=== PATIENT | male | born 1935 | race Caucasian/White ===

== ENCOUNTER 2016-12-12 10:32 | Emergency (ER) | payer MEDICARE ==
[~2016-12-12] VITALS: Ht 190.5 cm; Wt 95.5 kg
[~2016-12-12 10:32] MED LIST: CENTCHW3 PO; DULO30 PO; DUONI NEB; GABA300C3 PO; LISI-360 PO; LISI10 PO; PANT40IN3 PO; PRAV80 PO; SYNT88TA PO; TEMA15 PO; TRAV0.00 RIGHT EYE; Z.0.OXYGENDME NC
[2016-12-12 10:41] VITALS: BP 176/82; PULSE 56; RESP 18; TEMP 98.1; O2SAT 96
[2016-12-12] MEDS ORDERED: SODIUM CHLORID 0.9% 500 ML INJ 500 ML IV ONE (11:00)
[2016-12-12] MEDS ORDERED: SODIUM CHLORIDE 0.9% FLUSH 10 ML FLUSH IV FLUSH PRN (11:00)
[2016-12-12 11:08] VITALS: O2SAT 97
[2016-12-12] MEDS ORDERED: GABA300C5 PO (11:08)
[2016-12-12] MEDS ORDERED: PRAV80TA2 PO (11:08)
[2016-12-12] MEDS ORDERED: TRAV0.00 RIGHT EYE (11:08)
[2016-12-12] MEDS ORDERED: VENTAER INH (11:08)
[2016-12-12] MEDS ORDERED: THERM PO (11:08)
[2016-12-12] MEDS ORDERED: LISI10TA3 PO (11:08)
[2016-12-12] MEDS ORDERED: LEVO88TA2 PO (11:08)
[2016-12-12] MEDS ORDERED: DULO1CAP2 PO (11:08)
[2016-12-12 11:21] LABS: AUTOMATED NEUTROPHIL # 4.3 TH/MM3 (1.8-7.7); BASOPHIL % 0.6 % (0.0-2.0); EOSINOPHIL # 0.1 TH/MM3 (0-0.4); EOSINOPHIL % 1.3 % (0.0-4.0); HEMATOCRIT 37.1 % (39.0-51.0); HEMO FLAGS DIFF FINAL; LYMPH % 17.5 % (9.0-44.0); MEAN CELL VOLUME 95.9 FL (80.0-100.0); MEAN CORPUSCULAR HEMOGLOBIN 32.9 PG (27.0-34.0); MEAN CORPUSCULAR HGB CONC 34.3 % (32.0-36.0); MONO % 6.9 % (0.0-8.0); NEUT % 73.7 % (16.0-70.0); PLATELET COUNT 208 TH/MM3 (150-450); RED BLOOD COUNT 3.87 MIL/MM3 (4.50-5.90); RED CELL DISTRIBUTION WIDTH 13.5 % (11.6-17.2); WHITE BLOOD COUNT 5.9 TH/MM3 (4.0-11.0)
[2016-12-12 11:44] LABS: ANION GAP 10 MEQ/L (5-15); AST (GOT) 22 U/L (15-37); BLOOD UREA NITROGEN 17 MG/DL (7-18); CHLORIDE 106 MEQ/L (98-107); GLOMERULAR FILTRATION RATE 72 ML/MIN (>89); POTASSIUM 3.8 MEQ/L (3.5-5.1); SODIUM (NA) 142 MEQ/L (136-145)
[2016-12-12 11:48] LABS: ALKALINE PHOSPHATASE 70 U/L (45-117); ALT (GPT) 22 U/L (12-78); TOTAL BILIRUBIN ADULT 0.4 MG/DL (0.2-1.0)
--- NOTE | 2016-12-12 12:02 | RADRPT ---
EXAM DATE/TIME: 12/12/2016 11:41 [facility] COMPARISON: CHEST PA & LAT, January 28, 2016, 9:28. INDICATIONS : Vomiting. MEDICAL HISTORY : Hypertension. SURGICAL HISTORY : None. ENCOUNTER: Initial ACUITY: 2 days PAIN SCORE: 0/10 LOCATION: Bilateral abdomen FINDINGS: The bowel gas pattern is within normal limits. No free air is identified. No findings to indicate bow el obstruction are present. No abnormal calcifications are seen. No organomegaly is identified. 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 CONCLUSION: 1. Benign-appearing bowel gas pattern. Yasmani Willams MD on December 12, 2016 at 12:00 Board Certified Radiologist. This report was verified electronically.
--- NOTE | 2016-12-12 12:45 | PD ---
HPI Chief Complaint: GI Complaint Time Seen by Provider: 10:59 Travel History International Travel<30 days: No Contact w/Intl Traveler<30days: No Traveled to known affect area: No History of Present Illness HPI 81-year-old male from home with history of multiple medical issues, presents to the ER today for episodes of vomiting after getting up this morning. He reports that he felt dizzy. He states that he is not significantly nauseous, is not having abdominal pain, diarrhea, fevers, or any other symptoms. He states he is just vomiting. His symptoms have subsided after Zofran was given by EMS. On further questioning with , she states that she has been evaluated by neurology recently for dizziness and they had wanted to do a CT of the brain for the patient. Modifying Factors: None Associated Signs & Symptoms: Nausea and vomiting, dizziness Risk Factors: Elderly, dizziness recently PFSH Past Medical History Arthritis: Yes Autoimmune Disease: No Heart Rhythm Problems: Yes Cancer: No Cardiovascular Problems: Yes High Cholesterol: Yes Chest Pain: No Congestive Heart Failure: No Cerebrovascular Accident: No Diminished Hearing: No Endocrine: Yes Hypertension: Yes Immune Disorder: No Inguinal Hernia: Yes (BILAT REPAIRED) Implanted Vascular Access Dvce: Yes Kidney Stones: No Musculoskeletal: Yes Neurologic: Yes (PERIPHERAL NEUROPATHY) Psychiatric: No Reproductive: No Respiratory: No Migraines: No Renal Failure: No Seizures: No Thyroid Disease: Yes (HYPO) Past Surgical History Abdominal Surgery: Yes ( BILAT INGUINAL HERNIA REPAIR, APPY) AICD: No Appendectomy: Yes Arteriovenous Shunt: No Body Medical Devices: 4 RODS IN RIGHT ARM Cardiac Surgery: No Ear Surgery: No Endocrine Surgery: No Eye Surgery: Yes Genitourinary Surgery: No Insulin Pump: No Joint Replacement: Yes (BILAT KNEE) Oral Surgery: No Pacemaker: No Thoracic Surgery: No Other Surgery: Yes (LEFT SHOULDER, ELBOW) Social History Alcohol Use: No Tobacco Use: No Substance Use: No Allergies-Medications (Allergen,Severity, Reaction): Coded Allergies: *MDRO Multi-Drug Resistant Organism (Verified Allergy, Unknown, 12/12/16) C.diff 11/2013 Reported Meds & Prescriptions Reported Meds & Active Scripts Active Resp: Albuterol/Ipratropium 2.5 Mg/0.5 Mg (Albuterol/Ipratropium) 1 Amp Nebu 1 Ampule NEB Q4HR NEB PRN 14 Days Prinivil 10 mg (Lisinopril) 10 Mg Tab 10 Mg PO DAILY Lisinopril 10 mg (Lisinopril) 10 Mg Tab 10 Mg PO DAILY Reported Pravastatin 80 Mg Tab 80 Mg PO DAILY Thera M Plus (Multivitamins/Minerals Therapeutic) 1 Tab 1 Tab PO DAILY Lisinopril 10 Mg Tab 10 Mg PO DAILY Levothyroxine (Levothyroxine Sodium) 88 Mcg Tab 88 Mcg PO DAILY Gabapentin 300 Mg Cap 900 Mg PO HS Duloxetine DR (Duloxetine HCl) 30 Mg Capdr 30 Mg PO DAILY Ventolin Hfa 18 GM Inh (Albuterol Sulfate) 90 Mcg/Act Aer 2 Puff INH Q4-6H PRN Travatan Z (Travoprost) 0.004 % Donte 1 Drop RIGHT EYE HS Gabapentin 300 Mg Cap 900 Mg PO HS Pravastatin Sodium (Pravastatin Sod) 80 Mg Tab 80 Mg PO DAILY Synthroid (Levothyroxine Sodium) 88 Mcg Tab 88 Mcg PO DAILY Duloxetine HCl 30 Mg Cap 1 Tab PO DAILY Centrum Silver (Multiple Vitamins W/ Minerals) Silver Chw 1 Tab PO DAILY Travatan Z Opth Drops (Travoprost) 0.004 % Soln 1 Drop RIGHT EYE HS Review of Systems Except as stated in HPI: all other systems reviewed are Neg Physical Exam Narrative GENERAL: Well-developed pleasant elderly white male patient currently in mild distress. Awake and oriented 3. SKIN: Focused skin assessment warm/dry. HEAD: Atraumatic. Normocephalic. EYES: Pupils equal and round. No scleral icterus. No injection or drainage. ENT: No nasal bleeding or discharge. Mucous membranes pink and moist. NECK: Trachea midline. No JVD. CARDIOVASCULAR: Regular rate and rhythm. No murmur appreciated. RESPIRATORY: No accessory muscle use. Clear to auscultation. Breath sounds equal bilaterally. GASTROINTESTINAL: Abdomen soft, non-tender, nondistended. Hepatic and splenic margins not palpable. Benign. MUSCULOSKELETAL: No obvious deformities. No clubbing. No cyanosis. No edema. NEUROLOGICAL: Awake and alert. No obvious cranial nerve deficits. Motor grossly within normal limits. Normal speech. PSYCHIATRIC: Appropriate mood and affect; insight and judgment normal. Data Data Last Documented VS Vital Signs Date Time Temp Pulse Resp B/P Pulse Ox O2 Delivery O2 Flow Rate FiO2 12/12/16 13:16 58 18 150/68 97 Room Air 12/12/16 10:41 98.1 Orders Complete Blood Count With Diff (12/12/16 10:59) Comprehensive Metabolic Panel (12/12/16 10:59) Lipase (12/12/16 10:59) Urinalysis - C+S If Indicated (12/12/16 10:59) Abdomen, Flat & Upright (12/12/16 ) Iv Access Insert/Monitor (12/12/16 10:59) Ecg Monitoring (12/12/16 10:59) Oximetry (12/12/16 10:59) Sodium Chloride 0.9% Flush (Ns Flush) (12/12/16 11:00) Electrocardiogram (12/12/16 10:59) Sodium Chlorid 0.9% 500 Ml Inj (Ns 500 M (12/12/16 11:00) Ct Brain W/O Iv Contrast(Rout) (12/12/16 12:56) Labs Laboratory Tests Test 12/12/16 12/12/16 11:03 12:30 White Blood Count 5.9 TH/MM3 Red Blood Count 3.87 MIL/MM3 Hemoglobin 12.7 GM/DL Hematocrit 37.1 % Mean Corpuscular Volume 95.9 FL Mean Corpuscular Hemoglobin 32.9 PG Mean Corpuscular Hemoglobin 34.3 % Concent Red Cell Distribution Width 13.5 % Platelet Count 208 TH/MM3 Mean Platelet Volume 8.4 FL Neutrophils (%) (Auto) 73.7 % Lymphocytes (%) (Auto) 17.5 % Monocytes (%) (Auto) 6.9 % Eosinophils (%) (Auto) 1.3 % Basophils (%) (Auto) 0.6 % Neutrophils # (Auto) 4.3 TH/MM3 Lymphocytes # (Auto) 1.0 TH/MM3 Monocytes # (Auto) 0.4 TH/MM3 Eosinophils # (Auto) 0.1 TH/MM3 Basophils # (Auto) 0.0 TH/MM3 CBC Comment DIFF FINAL Differential Comment Sodium Level 142 MEQ/L Potassium Level 3.8 MEQ/L Chloride Level 106 MEQ/L Carbon Dioxide Level 26.0 MEQ/L Anion Gap 10 MEQ/L Blood Urea Nitrogen 17 MG/DL Creatinine 0.99 MG/DL Estimat Glomerular Filtration 72 ML/MIN Rate Random Glucose 107 MG/DL Calcium Level 8.7 MG/DL Total Bilirubin 0.4 MG/DL Aspartate Amino Transf 22 U/L (AST/SGOT) Alanine Aminotransferase 22 U/L (ALT/SGPT) Alkaline Phosphatase 70 U/L Total Protein 7.9 GM/DL Albumin 3.2 GM/DL Lipase 98 U/L Urine Color YELLOW Urine Turbidity CLEAR Urine pH 7.0 Urine Specific [place] 1.016 Urine Protein NEG mg/dL Urine Glucose (UA) NEG mg/dL Urine Ketones TRACE mg/dL Urine Occult Blood NEG Urine Nitrite NEG Urine Bilirubin NEG Urine Urobilinogen LESS THAN 2.0 MG/DL Urine Leukocyte Esterase NEG Urine RBC 1 /hpf Urine WBC 1 /hpf Microscopic Urinalysis Comment CULT NOT INDICATED MDM Medical Decision Making Medical Screen Exam Complete: Yes Emergency Medical Condition: Yes Medical Record Reviewed: Yes Interpretation(s) EKG shows sinus bradycardia rate of 54 bpm with no signs of acute ST-T changes. Laboratory Tests Test 12/12/16 12/12/16 11:03 12:30 Red Blood Count 3.87 MIL/MM3 (4.50-5.90) Hemoglobin 12.7 GM/DL (13.0-17.0) Hematocrit 37.1 % (39.0-51.0) Neutrophils (%) (Auto) 73.7 % (16.0-70.0) Estimat Glomerular Filtration 72 ML/MIN (>89) Rate Random Glucose 107 MG/DL (74-106) Albumin 3.2 GM/DL (3.4-5.0) Urine Ketones TRACE mg/dL (NEG) Last 24 hours Impressions Abdomen X-Ray 12/12/16 0000 Signed Impressions: Service Date/Time: Monday, December 12, 2016 11:41 - CONCLUSION: 1. Benign-appearing bowel gas pattern. Yasmani Willams MD Differential Diagnosis Nausea and vomitinggastroenteritis versus obstruction versus pneumonia versus other acute intra-abdominal processes Narrative Course Patient did not have any further episodes of vomiting in the ER after given Zofran by EMS. Abdomen is benign. X-ray did not show any signs of acute obstruction. Lab work did not show significant dehydration or leukocytosis. CT brain was done because patient's neurologist has been evaluating patient for headaches and dizziness. It did not show any signs of acute intercranial processes. At this point, patient appears to be doing well in the ER with no further episodes or symptoms. Vital signs are stable. My plan would be to release him with follow-up to primary care physician and neurology. Return for any worsening in symptoms as needed. The plan has been discussed with him and he states understanding. Diagnosis Primary Impression: Dizziness Additional Impression: Vomiting Med/Other Pt SpecificInfo: Prescription(s) given Scripts Ondansetron Odt (Zofran Odt)4 Mg Tab4 Mg SL Q6HR PRN (Nausea/Vomiting) #7 TAB Ref 0 Prov:Kris Mcintosh MD 12/12/16 Disposition: 01 DISCHARGE HOME Condition: Stable Kris Mcintosh MD Dec 12, 2016 12:45
[2016-12-12 12:47] LABS: BLOOD, URINE NEG (NEG); GLUCOSE,URINE NEG (NEG); KETONE, URINE TRACE mg/dL (NEG); NITRITE,URINE NEG (NEG); URINE COLOR YELLOW (YELLW/STRAW)
[2016-12-12 12:48] LABS: COMMENT (UR) CULT NOT INDICATED; CULTURE IF INDICATED CULT NOT INDICATED
[2016-12-12 13:16] VITALS: BP 150/68; PULSE 58; RESP 18; O2SAT 97
--- NOTE | 2016-12-12 14:51 | RADRPT ---
EXAM DATE/TIME: 12/12/2016 14:01 [facility] COMPARISON: CT BRAIN W/O CONTRAST, November 15, 2013, 16:21. INDICATIONS : Dizziness,nuasea,vomiting today RADIATION DOSE: 56.36 CTDIvol (mGy) MEDICAL HISTORY : Cardiovascular disease. Hypertension. Diabetes SURGICAL HISTORY : Appendectomy. ENCOUNTER: Initial ACUITY: 1 day PAIN SCALE: 0/10 LOCATION: cranial TECHNIQUE: Multiple contiguous axial images were obtained of the head. Using automated exposure control and adj ustment of the mA and/or kV according to patient size, radiation dose was kept as low as reasonably a chievable to obtain optimal diagnostic quality images. FINDINGS: CEREBRUM: Redemonstration of bilateral subinsular and right periventricular hypodensities which likely reflect lacunar infarcts. The ventricles are normal for degree of atrophy. No evidence of midline shift, mas s lesion, hemorrhage or acute infarction. No extra-axial fluid collections are seen. POSTERIOR FOSSA: The cerebellum and brainstem are intact. The 4th ventricle is midline. The cerebellopontine angle i s unremarkable. EXTRACRANIAL: The visualized portion of the orbits is intact. SKULL: Redemonstration of dense right globe. The calvaria is intact. No evidence of skull fracture. CONCLUSION: 1. No acute intracranial abnormality. Rigoberto Caruso MD on December 12, 2016 at 14:45 Board Certified Radiologist. This report was verified electronically.
[2016-12-12] MEDS ORDERED: ZOFR4TAB3 SL (15:19)
--- NOTE | 2016-12-13 14:09 | EKG ---
Date Performed: 12/12/2016 Time Performed: 11:58:43 PTAGE: 81 years EKG: SINUS BRADYCARDIA WITH FIRST DEGREE AV BLOCK MODERATE INTRAVENTRICULAR CONDUCTION DELAY ABN ORMAL ECG PREVIOUS TRACING : 01/20/2016 16.42 Since previous tracing, no significant change noted DOCTOR: Kirk May Interpretating Date/Time 12/13/2016 14:04:59
== END 2016-12-12 15:32 | disposition home or self-care (01) ==
LOC: NEPE 10:32
DX: R42 Dizziness and giddiness (principal); R11.10 Vomiting, unspecified; R94.31 Abnormal electrocardiogram [ECG] [EKG]; I10 Essential (primary) hypertension
CPT/HCPCS: 70450; 74020; 80053; 81001; 83690; 85025; 93005; 96360; 96361; 99285; J7040

== ENCOUNTER 2017-05-28 13:38 | Emergency (ER) | payer MEDICARE ==
[~2017-05-28] VITALS: Ht 190.5 cm; Wt 98.0 kg
[~2017-05-28 13:38] MED LIST changes: +DULO1CAP2 PO; +GABA300C5 PO; +LEVO88TA2 PO; +LISI10TA3 PO; -PANT40IN3 PO; +PRAV80TA2 PO; -TEMA15 PO; +THERM PO; +VENTAER INH; -Z.0.OXYGENDME NC; +ZOFR4TAB3 SL
[2017-05-28 13:47] VITALS: BP 168/83; PULSE 73; RESP 20; TEMP 97.4; O2SAT 94
--- NOTE | 2017-05-28 14:12 | PD ---
HPI Chief Complaint: Fall Time Seen by Provider: 14:00 Travel History International Travel<30 days: No Contact w/Intl Traveler<30days: No Traveled to known affect area: No History of Present Illness HPI 81-year-old male came to the emergency room after falling since his legs gave way. Patient remembers the fall. His was there but her back was turned to him for a second when the fall happened. The patient fell on the floor she turned around and saw him and he was still awake. He had an open wound on his scalp and his right hand. She called EMS and patient was brought in by ambulance. Patient is awake and answering questions appropriately. He denies of any pain. Vital signs are stable. Patient is on aspirin only as a blood thinner. PFSH Past Medical History Narrative Medical List of his past medical, surgical, social and family history is reviewed from the nursing note. Arthritis: Yes Autoimmune Disease: No Heart Rhythm Problems: Yes Cancer: No Cardiovascular Problems: Yes High Cholesterol: Yes Chest Pain: No Congestive Heart Failure: No Cerebrovascular Accident: No Diminished Hearing: No Endocrine: Yes Hypertension: Yes Immune Disorder: No Inguinal Hernia: Yes (BILAT REPAIRED) Implanted Vascular Access Dvce: Yes Kidney Stones: No Musculoskeletal: Yes Neurologic: Yes (PERIPHERAL NEUROPATHY) Psychiatric: No Reproductive: No Respiratory: No Migraines: No Renal Failure: No Seizures: No Thyroid Disease: Yes (HYPO) Past Surgical History Abdominal Surgery: Yes ( BILAT INGUINAL HERNIA REPAIR, APPY) AICD: No Appendectomy: Yes Arteriovenous Shunt: No Body Medical Devices: 4 RODS IN RIGHT ARM Cardiac Surgery: No Ear Surgery: No Endocrine Surgery: No Eye Surgery: Yes Genitourinary Surgery: No Insulin Pump: No Joint Replacement: Yes (BILAT KNEE) Oral Surgery: No Pacemaker: No Thoracic Surgery: No Other Surgery: Yes (LEFT SHOULDER, ELBOW) Social History Alcohol Use: No Tobacco Use: No Substance Use: No Allergies-Medications (Allergen,Severity, Reaction): Coded Allergies: *MDRO Multi-Drug Resistant Organism (Verified Allergy, Unknown, 12/12/16) C.diff 11/2013 Comments List of his allergies reviewed from the nursing note. Reported Meds & Prescriptions Reported Meds & Active Scripts Active Bacitracin Topical 500 Unit/Gm Oint 1 Applic TOPICAL BID 7 Days Keflex (Cephalexin) 500 Mg Cap 500 Mg PO Q12H 7 Days Zofran Odt (Ondansetron Odt) 4 Mg Tab 4 Mg SL Q6HR PRN Resp: Albuterol/Ipratropium 2.5 Mg/0.5 Mg (Albuterol/Ipratropium) 1 Amp Nebu 1 Ampule NEB Q4HR NEB PRN 14 Days Prinivil 10 mg (Lisinopril) 10 Mg Tab 10 Mg PO DAILY Lisinopril 10 mg (Lisinopril) 10 Mg Tab 10 Mg PO DAILY Reported Travatan Z Opth Drops (Travoprost) 0.004 % Soln 1 Drop RIGHT EYE HS Pravastatin 80 Mg Tab 80 Mg PO DAILY Thera M Plus (Multivitamins/Minerals Therapeutic) 1 Tab 1 Tab PO DAILY Lisinopril 10 Mg Tab 10 Mg PO DAILY Levothyroxine (Levothyroxine Sodium) 88 Mcg Tab 88 Mcg PO DAILY Gabapentin 300 Mg Cap 900 Mg PO HS Duloxetine DR (Duloxetine HCl) 30 Mg Capdr 30 Mg PO DAILY Ventolin Hfa 18 GM Inh (Albuterol Sulfate) 90 Mcg/Act Aer 2 Puff INH Q4-6H PRN Travatan Z (Travoprost) 0.004 % Donte 1 Drop RIGHT EYE HS Gabapentin 300 Mg Cap 900 Mg PO HS Pravastatin Sodium (Pravastatin Sod) 80 Mg Tab 80 Mg PO DAILY Synthroid (Levothyroxine Sodium) 88 Mcg Tab 88 Mcg PO DAILY Duloxetine HCl 30 Mg Cap 1 Tab PO DAILY Centrum Silver (Multiple Vitamins W/ Minerals) Silver Chw 1 Tab PO DAILY Narrative Medication List of his home medications reviewed from the nursing note. Review of Systems Except as stated in HPI: all other systems reviewed are Neg Physical Exam Narrative GENERAL: Awake, alert, elderly, no obvious distress SKIN: Focused skin assessment warm/dry. 6 cm deep laceration on the dorsum of the right hand with bleeding controlled. HEAD: 5 cm laceration on the right parietal scalp area with underlying hematoma. Bleeding is controlled EYES: Pupils equal and round. No scleral icterus. No injection or drainage. ENT: No nasal bleeding or discharge. Mucous membranes pink and moist. NECK: Trachea midline. No JVD. CARDIOVASCULAR: Regular rate and rhythm. No murmur appreciated. RESPIRATORY: No accessory muscle use. Clear to auscultation. Breath sounds equal bilaterally. GASTROINTESTINAL: Abdomen soft, non-tender, nondistended. Hepatic and splenic margins not palpable. MUSCULOSKELETAL: No obvious deformities. No clubbing. No cyanosis. No edema. NEUROLOGICAL: Awake and alert. No obvious cranial nerve deficits. Motor grossly within normal limits. Normal speech. PSYCHIATRIC: Appropriate mood and affect; insight and judgment normal. Data Data Last Documented VS Orders Orders Ct Brain W/O Iv Contrast(Rout) (05/28/17 ) Lidocaine 1% Inj (50 Ml) (Xylocaine 1% I (05/28/17 14:15) Ed Discharge Order (05/28/17 16:07) [facility] Medical Decision Making Medical Screen Exam Complete: Yes Emergency Medical Condition: Yes Medical Record Reviewed: Yes Differential Diagnosis Intracranial bleed, skull fracture, laceration Narrative Course 4:05 PM CAT scan of the head was ordered which is negative for any intracranial bleed. The laceration of the scalp and the dorsum of the hand was repaired by my PA. Please refer to her procedure note. I will discharge the patient home. Procedures EKG Prior to Arrival: No Diagnosis Primary Impression: Scalp laceration Qualified Codes: S01.01XA - Laceration without foreign body of scalp, initial encounter Additional Impressions: Hand laceration Qualified Codes: S61.421A - Laceration with foreign body of right hand, initial encounter Fall Qualified Codes: W19.XXXA - Unspecified fall, initial encounter Referrals: Primary Care Physician Additional Instructions: Please return to the ER to get the joleen and the stitches taken out in 7-10 days. The wound clean and dry. Take the antibiotic as per the prescription direction. Apply the ointment twice a day on the wound until the stitches are out. Med/Other Pt SpecificInfo: Prescription(s) given Scripts Bacitracin Topical (Bacitracin Topical) 500 Unit/Gm Oint 1 APPLIC TOPICAL BID for Infection for 7 Days, #30 GM 0 Refills Prov: Coreen Chand MD 05/28/17 Cephalexin (Keflex) 500 Mg Cap 500 MG PO Q12H for Infection for 7 Days, #14 CAP 0 Refills Prov: Coreen Chand MD 05/28/17 Disposition: 01 DISCHARGE HOME Condition: Stable Coreen Chand MD May 28, 2017 14:12
[2017-05-28] MEDS ORDERED: LIDOCAINE HCL 1% 50 ML VIAL INFIL ONE (14:15)
--- NOTE | 2017-05-28 14:23 | PD ---
Physical Exam Date Seen by Provider: May 28, 2017 Time Seen by Provider: 14:22 Data Data Last Documented VS Vital Signs Date Time Temp Pulse Resp B/P (MAP) Pulse Ox O2 Delivery O2 Flow Rate FiO2 05/28/17 13:47 97.4 73 20 168/83 (111) [address] Brain W/O Iv Contrast(Rout) (05/28/17 ) Lidocaine 1% Inj (50 Ml) (Xylocaine 1% I (05/28/17 14:15) Ed Discharge Order (05/28/17 16:07) [facility] Supervised Visit with ALEXIA: No Narrative Course I was asked to evaluate this patient's scalp and right hand laceration. The patient was initially seen by Dr. Chand. Please see her note for full H& P. On my exam there is a 4.5 cm laceration on the posterior aspect of the right hand and an 8 cm scalp laceration, neither with active bleeding or visible foreign body. Laceration repairs were performed. Please see my procedure note for details. Dr. Chand retains care of this patient. Please see her note for disposition. Procedures Procedure Narrative LACERATION LOCATION: scalp LENGTH: 8cm NUMBER OF STITCHES/JOLEEN: 8 REPAIR: The area of the laceration was prepped with Betadine and sterilely draped. The laceration was infiltrated with 1% lidocaine. The wound was copiously irrigated and explored without evidence of foreign body, tendon injury or neurovascular injury. The wound was closed using surgical joleen. This was a single layer repair. . The patient was advised to keep the wound clean and dry. Patient tolerated the procedure well. LACERATION LOCATION: Posterior aspect right hand LENGTH: 4.5 cm NUMBER OF STITCHES/JOLEEN: 9 REPAIR: The area of the laceration was prepped with Betadine and sterilely draped. The laceration was infiltrated with 1% lidocaine. The wound was copiously irrigated and explored without evidence of foreign body, tendon injury or neurovascular injury. The wound was closed using 4-0 Vicryl, 4-0 nylon. This was a 2 layer repair. A sterile dressing was applied. The patient was advised to keep the dressing clean and dry. Patient tolerated the procedure well. Scripts Bacitracin Topical (Bacitracin Topical) 500 Unit/Gm Oint 1 APPLIC TOPICAL BID for Infection for 7 Days, #30 GM 0 Refills Prov: Coreen Chand MD 05/28/17 Cephalexin (Keflex) 500 Mg Cap 500 MG PO Q12H for Infection for 7 Days, #14 CAP 0 Refills Prov: Coreen Chand MD 05/28/17 Cici Dalton May 28, 2017 14:23
--- NOTE | 2017-05-28 15:01 | RADRPT ---
EXAM DATE/TIME: 05/28/2017 14:44 [facility] COMPARISON: No previous studies available for comparison. INDICATIONS : Patient fell, has laceration top of head. RADIATION DOSE: 40.85 CTDIvol (mGy) MEDICAL HISTORY : Cardiovascular disease. Hypertension. Diabetes mellitus type 1.renal disease SURGICAL HISTORY : Appendectomy. ENCOUNTER: Initial ACUITY: 1 day PAIN SCALE: 5/10 LOCATION: Bilateral cranial TECHNIQUE: Multiple contiguous axial images were obtained of the head. Using automated exposure control and adj ustment of the mA and/or kV according to patient size, radiation dose was kept as low as reasonably a chievable to obtain optimal diagnostic quality images. DICOM format image data is available electro nically for review and comparison. 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 The ventricles are normal for age. No evidence of midline shift, mass lesion, hemorrhage or acute infarction. No extra-axial fluid collections are se en. POSTERIOR FOSSA: The cerebellum and brainstem are intact. The 4th ventricle is midline. The cerebellopontine angle i s unremarkable. EXTRACRANIAL: Right globe is densely calcified. Marked soft tissue swelling in the high right parietal region. SKULL: The calvaria is intact. No evidence of skull fracture. CONCLUSION: Stable examination. Marked soft tissue swelling in the high right parietal region without underlying intracranial injury. Fredrick Inman MD on May 28, 2017 at 14:59 Board Certified Radiologist. This report was verified electronically.
[2017-05-28] MEDS ORDERED: BACI500O9 TOPICAL (16:07)
[2017-05-28] MEDS ORDERED: CEPH-460 PO (16:07)
== END 2017-05-28 19:30 | disposition home or self-care (01) ==
LOC: NEPC 13:38
DX: S01.01XA Laceration without foreign body of scalp, initial encounter (principal); S61.411A Laceration without foreign body of right hand, initial encounter; E78.00 Pure hypercholesterolemia, unspecified; M19.90 Unspecified osteoarthritis, unspecified site; I10 Essential (primary) hypertension; G62.9 Polyneuropathy, unspecified; E03.9 Hypothyroidism, unspecified; W18.30XA Fall on same level, unspecified, initial encounter; Z79.899 Other long term (current) drug therapy
CPT/HCPCS: 12004; 12042; 70450

== ENCOUNTER 2017-11-30 06:44 | Emergency (ER) | payer MEDICARE ==
[~2017-11-30] VITALS: Ht 190.5 cm; Wt 101.0 kg
[~2017-11-30 06:44] MED LIST changes: +BACI500O9 TOPICAL; +CEPH-460 PO
[2017-11-30] MEDS ORDERED: IOHEXOL 350 MG/ML 10 ML VIAL (for RAD DIAG) IVCONTRAST ONE (06:45)
[2017-11-30 06:50] VITALS: BP 169/100; PULSE 90; RESP 18; TEMP 98.7; O2SAT 94
[2017-11-30] MEDS ORDERED: SODIUM CHLORID 0.9% 500 ML INJ 500 ML IV ONE (07:00)
[2017-11-30] MEDS ORDERED: ONDANSETRON ODT 4 MG TAB PO ONE (07:00)
[2017-11-30] MEDS ORDERED: SODIUM CHLORIDE 0.9% FLUSH 10 ML FLUSH IV FLUSH PRN (07:00)
[2017-11-30] MEDS ORDERED: MORPHINE SULFATE 4 MG/ML INJ IV PUSH ONE (07:00)
--- NOTE | 2017-11-30 07:03 | PD ---
HPI Chief Complaint: Abdominal Pain Time Seen by Provider: 06:51 Travel History International Travel<30 days: No Contact w/Intl Traveler<30days: No Traveled to known affect area: No History of Present Illness HPI The patient is 82-year-old male who presents to the emergency department via EMS from home for abdominal pain. The patient states he had nausea vomiting 2 days ago for approximately 45 minutes. The patient then developed abdominal pain last night at 6 PM. The abdominal pain is located in the left lower quadrant of the abdomen, as described as achy, nonradiating, associated with nausea. He denies any diarrhea. He does have a previous history of appendicitis but denies any known history of diverticulitis. He denies any fever, chills, sweats, chest pain, or shortness of breath. The patient's primary physician is Dr. Hugo Coates. He denies any associated urinary symptoms including dysuria or hematuria. 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 PFSH Past Medical History Hx Anticoagulant Therapy: No Arthritis: Yes Autoimmune Disease: No Heart Rhythm Problems: Yes Cancer: No Cardiovascular Problems: Yes High Cholesterol: Yes Chest Pain: No Congestive Heart Failure: No Cerebrovascular Accident: No Diminished Hearing: No Endocrine: Yes Hypertension: Yes Immune Disorder: No Inguinal Hernia: Yes (BILAT REPAIRED) Implanted Vascular Access Dvce: Yes Kidney Stones: No Musculoskeletal: Yes Neurologic: Yes (PERIPHERAL NEUROPATHY) Psychiatric: No Reproductive: No Respiratory: No Migraines: No Renal Failure: No Seizures: No Thyroid Disease: Yes (HYPO) Past Surgical History Abdominal Surgery: Yes ( BILAT INGUINAL HERNIA REPAIR, APPY) AICD: No Appendectomy: Yes Arteriovenous Shunt: No Body Medical Devices: 4 RODS IN RIGHT ARM Cardiac Surgery: No Ear Surgery: No Endocrine Surgery: No Eye Surgery: Yes Genitourinary Surgery: No Insulin Pump: No Joint Replacement: Yes (BILAT KNEE) Oral Surgery: No Pacemaker: No Thoracic Surgery: No Other Surgery: Yes (LEFT SHOULDER, ELBOW) Social History Alcohol Use: No Tobacco Use: No Substance Use: No Allergies-Medications (Allergen,Severity, Reaction): Coded Allergies: *MDRO Multi-Drug Resistant Organism (Verified Allergy, Unknown, 11/30/17) C.diff 11/2013 Reported Meds & Prescriptions Reported Meds & Active Scripts Active Reported Carbidopa-Levodopa 25-100 Mg Tab 1 Tab PO BID Ranitidine (Ranitidine HCl) 150 Mg Tab 150 Mg PO HS Pantoprazole (Pantoprazole Sodium) 40 Mg Tab 40 Mg PO DAILY Dorzolamide Opth Drops (Dorzolamide HCl) 2% Soln 2 Drop RIGHT EYE DAILY Atropine Opth Drops 1% Soln 1 Drop RIGHT EYE DAILY Lisinopril 5 Mg Tab 5 Mg PO DAILY Synthroid (Levothyroxine Sodium) 88 Mcg Tab 2 Tab PO SATURDAY Synthroid (Levothyroxine Sodium) 88 Mcg Tab 88 Mcg PO DAILY saturday - saturday Gabapentin 300 Mg Cap 300 Mg PO HS Gabapentin 600 Mg Tab 600 Mg PO DAILY Travatan Z Opth Drops (Travoprost) 0.004 % Soln 1 Drop RIGHT EYE HS Pravastatin 80 Mg Tab 80 Mg PO DAILY Thera M Plus (Multivitamins/Minerals Therapeutic) 1 Tab 1 Tab PO DAILY Ventolin Hfa 18 GM Inh (Albuterol Sulfate) 90 Mcg/Act Aer 2 Puff INH Q4-6H PRN Review of Systems Except as stated in HPI: all other systems reviewed are Neg General / Constitutional: No: Fever, Chills HENT: Positive: Lightheadedness Cardiovascular: No: Chest Pain or Discomfort Respiratory: No: Shortness of Breath Gastrointestinal: Positive: Nausea, Vomiting, Abdominal Pain, No: Diarrhea Genitourinary: No: Dysuria Neurologic: Positive: Dizziness Physical Exam Narrative GENERAL: Awake, alert, pleasant 82-year-old male who appears his stated age and is in no acute respiratory distress. SKIN: Focused skin assessment warm/dry. HEAD: Atraumatic. Normocephalic. EYES: Right pupil is irregular and nonreactive. Left pupil is round and reactive. He is able to see light out of the left eye, unable to see out of the right eye. ENT: No nasal bleeding or discharge. Slightly dry mucous membranes. NECK: Trachea midline. No JVD. CARDIOVASCULAR: Regular rate and rhythm. No murmur appreciated. RESPIRATORY: No accessory muscle use. Clear to auscultation. Breath sounds equal bilaterally. GASTROINTESTINAL: Abdomen soft, tender palpation left lower quadrant. No guarding or rigidity. MUSCULOSKELETAL: No obvious deformities. No clubbing. No cyanosis. No edema. NEUROLOGICAL: Awake and alert. No obvious cranial nerve deficits. Motor grossly within normal limits. Normal speech. PSYCHIATRIC: Appropriate mood and affect; insight and judgment normal. Data Data Last Documented VS Vital Signs Date Time Temp Pulse Resp B/P (MAP) Pulse Ox O2 Delivery O2 Flow Rate FiO2 11/30/17 09:30 81 20 180/90 (120) 95 Room Air 11/30/17 06:50 98.7 Orders Orders Complete Blood Count With Diff (11/30/17 06:57) Comprehensive Metabolic Panel (11/30/17 06:57) Lipase (11/30/17 06:57) Lactic Acid (11/30/17 06:57) Prothrombin Time / Inr (Pt) (11/30/17 06:57) Act Partial Throm Time (Ptt) (11/30/17 06:57) Urinalysis - C+S If Indicated (11/30/17 06:57) Ct Abd/Pel W Iv Contrast(Rout) (11/30/17 06:57) Iv Access Insert/Monitor (11/30/17 06:57) Ecg Monitoring (11/30/17 06:57) Oximetry (11/30/17 06:57) Morphine Inj (Morphine Inj) (11/30/17 07:00) Sodium Chloride 0.9% Flush (Ns Flush) (11/30/17 07:00) Electrocardiogram (11/30/17 06:57) Ondansetron Odt (Zofran Odt) (11/30/17 07:00) Sodium Chlorid 0.9% 500 Ml Inj (Ns 500 M (11/30/17 07:00) Oral Contrast - Adult (11/30/17 07:00) Diatrizoate Liq ( Gastroview Liq) (11/30/17 07:16) Iohexol 350 Inj (Omnipaque 350 Inj) (11/30/17 06:45) Morphine Inj (Morphine Inj) (11/30/17 10:30) Labs Laboratory Tests Test 11/30/17 07:12 11/30/17 09:30 White Blood Count 8.4 TH/MM3 Red Blood Count 3.39 MIL/MM3 Hemoglobin 11.9 GM/DL Hematocrit 34.7 % Mean Corpuscular Volume 102.3 FL Mean Corpuscular Hemoglobin 35.0 PG Mean Corpuscular Hemoglobin Concent 34.2 % Red Cell Distribution Width 14.2 % Platelet Count 260 TH/MM3 Mean Platelet Volume 7.8 FL Neutrophils (%) (Auto) 82.1 % Lymphocytes (%) (Auto) 11.1 % Monocytes (%) (Auto) 6.5 % Eosinophils (%) (Auto) 0.1 % Basophils (%) (Auto) 0.2 % Neutrophils # (Auto) 6.9 TH/MM3 Lymphocytes # (Auto) 0.9 TH/MM3 Monocytes # (Auto) 0.5 TH/MM3 Eosinophils # (Auto) 0.0 TH/MM3 Basophils # (Auto) 0.0 TH/MM3 CBC Comment DIFF FINAL Differential Comment Prothrombin Time 10.7 SEC Prothromb Time International Ratio 1.1 RATIO Activated Partial Thromboplast Time 25.2 SEC Blood Urea Nitrogen 13 MG/DL Creatinine 1.22 MG/DL Random Glucose 103 MG/DL Total Protein 9.7 GM/DL Albumin 2.8 GM/DL Calcium Level 8.7 MG/DL Alkaline Phosphatase 58 U/L Aspartate Amino Transf (AST/SGOT) 22 U/L Alanine Aminotransferase (ALT/SGPT) 20 U/L Total Bilirubin 0.4 MG/DL Sodium Level 141 MEQ/L Potassium Level 3.9 MEQ/L Chloride Level 107 MEQ/L Carbon Dioxide Level 25.6 MEQ/L Anion Gap 8 MEQ/L Estimat Glomerular Filtration Rate 57 ML/MIN Lactic Acid Level 1.3 mmol/L Lipase 67 U/L Urine Color YELLOW Urine Turbidity CLEAR Urine pH 7.0 Urine Specific [place] 1.011 Urine Protein NEG mg/dL Urine Glucose (UA) NEG mg/dL Urine Ketones NEG mg/dL Urine Occult Blood NEG Urine Nitrite NEG Urine Bilirubin NEG Urine Urobilinogen LESS THAN 2.0 MG/DL Urine Leukocyte Esterase NEG Urine RBC LESS THAN 1 /hpf Urine WBC 3 /hpf Urine Squamous Epithelial Cells <1 /hpf Urine Bacteria OCC /hpf Urine Mucus FEW /lpf Microscopic Urinalysis Comment CULT NOT INDICATED MDM Medical Decision Making Medical Screen Exam Complete: Yes Emergency Medical Condition: Yes Medical Record Reviewed: Yes Interpretation(s) EKG reveals sinus rhythm with sinus arrhythmia. Moderate intraventricular conduction delay. Laboratory Tests Test 11/30/17 07:12 11/30/17 09:30 White Blood Count 8.4 TH/MM3 Red Blood Count 3.39 MIL/MM3 Hemoglobin 11.9 GM/DL Hematocrit 34.7 % Mean Corpuscular Volume 102.3 FL Mean Corpuscular Hemoglobin 35.0 PG Mean Corpuscular Hemoglobin Concent 34.2 % Red Cell Distribution Width 14.2 % Platelet Count 260 TH/MM3 Mean Platelet Volume 7.8 FL Neutrophils (%) (Auto) 82.1 % Lymphocytes (%) (Auto) 11.1 % Monocytes (%) (Auto) 6.5 % Eosinophils (%) (Auto) 0.1 % Basophils (%) (Auto) 0.2 % Neutrophils # (Auto) 6.9 TH/MM3 Lymphocytes # (Auto) 0.9 TH/MM3 Monocytes # (Auto) 0.5 TH/MM3 Eosinophils # (Auto) 0.0 TH/MM3 Basophils # (Auto) 0.0 TH/MM3 CBC Comment DIFF FINAL Differential Comment Prothrombin Time 10.7 SEC Prothromb Time International Ratio 1.1 RATIO Activated Partial Thromboplast Time 25.2 SEC Blood Urea Nitrogen 13 MG/DL Creatinine 1.22 MG/DL Random Glucose 103 MG/DL Total Protein 9.7 GM/DL Albumin 2.8 GM/DL Calcium Level 8.7 MG/DL Alkaline Phosphatase 58 U/L Aspartate Amino Transf (AST/SGOT) 22 U/L Alanine Aminotransferase (ALT/SGPT) 20 U/L Total Bilirubin 0.4 MG/DL Sodium Level 141 MEQ/L Potassium Level 3.9 MEQ/L Chloride Level 107 MEQ/L Carbon Dioxide Level 25.6 MEQ/L Anion Gap 8 MEQ/L Estimat Glomerular Filtration Rate 57 ML/MIN Lactic Acid Level 1.3 mmol/L Lipase 67 U/L Urine Color YELLOW Urine Turbidity CLEAR Urine pH 7.0 Urine Specific [place] 1.011 Urine Protein NEG mg/dL Urine Glucose (UA) NEG mg/dL Urine Ketones NEG mg/dL Urine Occult Blood NEG Urine Nitrite NEG Urine Bilirubin NEG Urine Urobilinogen LESS THAN 2.0 MG/DL Urine Leukocyte Esterase NEG Urine RBC LESS THAN 1 /hpf Urine WBC 3 /hpf Urine Squamous Epithelial Cells <1 /hpf Urine Bacteria OCC /hpf Urine Mucus FEW /lpf Microscopic Urinalysis Comment CULT NOT INDICATED Last Impressions Abdomen/Pelvis CT 11/30/17 9112 Signed Impressions: CONCLUSION: 1. Scattered diverticulosis of the sigmoid colon without inflammatory changes. 2. Stable bilateral adrenal masses, left greater than right most likely repres enting adrenal adenomas. 3. Benign-appearing bilateral renal cysts. 4. Stable 7 mm cyst right lobe of the liver. 5. Mild aneurysmal dilatation of the abdominal aorta. Differential Diagnosis Differential diagnosis includes diverticulitis, partial small bowel obstruction , UTI, sigmoid volvulus, ileus, gastritis, enteritis, colitis, pancreatitis. Narrative Course IV was established, labs are drawn and sent, and the patient was placed on cardiac telemetry monitoring and continuous pulse oximetry monitoring. The patient was administered morphine, Zofran, and IV fluids. CT of the abdomen and pelvis with IV and oral contrast was obtained. UA was sent to lab. The patient's white count is normal. Lactic acid is unremarkable. UA is negative. CT of the abdomen and pelvis reveals chronic findings, no acute findings. The patient was reevaluated at 10:20 AM, his pain had slightly returned, therefore, he was dosed with 2 mg of morphine. The patient's laboratory evaluation including white count and lactic acid are unremarkable with negative CT. The patient is stable for outpatient follow-up. He will be provided a copy of his CT results and lab results at discharge. Diagnosis Primary Impression: Abdominal pain Qualified Codes: R10.30 - Lower abdominal pain, unspecified Patient Instructions: General Instructions Additional Instructions: Follow-up with your primary physician. Zofran as needed. Clear liquid diet and advance as tolerated. Please provide the patient a copy of his CT results and lab results at discharge. Return if symptoms worsen or progress. Med/Other Pt SpecificInfo: Prescription(s) given Scripts Ondansetron Odt (Zofran Odt) 4 Mg Tab 4 MG SL Q6HR Y for Nausea/Vomiting, #7 TAB 0 Refills Prov: Carlos Colunga MD 11/30/17 Disposition: DISCHARGE HOME Condition: Stable Carlos Colunga MD November 30, 2017 07:03
[2017-11-30 07:07] VITALS: O2SAT 94
[2017-11-30] MEDS ORDERED: DIATRIZOATE MEGLUM/DIATRIZOATE SOD 9 ML CUP ONE (07:16)
[2017-11-30 07:40] LABS: AUTOMATED NEUTROPHIL # 6.9 TH/MM3 (1.8-7.7); BASOPHIL % 0.2 % (0.0-2.0); EOSINOPHIL % 0.1 % (0.0-4.0); HEMATOCRIT 34.7 % (39.0-51.0); HEMOGLOBIN 11.9 GM/DL (13.0-17.0); LYMPH % 11.1 % (9.0-44.0); LYMPHOCYTE # 0.9 TH/MM3 (1.0-4.8); MEAN CELL VOLUME 102.3 FL (80.0-100.0); MEAN CORPUSCULAR HGB CONC 34.2 % (32.0-36.0); MEAN PLATELET VOLUME 7.8 FL (7.0-11.0); MONO % 6.5 % (0.0-8.0); MONOCYTE # 0.5 TH/MM3 (0-0.9); NEUT % 82.1 % (16.0-70.0); PLATELET COUNT 260 TH/MM3 (150-450); RED BLOOD COUNT 3.39 MIL/MM3 (4.50-5.90); RED CELL DISTRIBUTION WIDTH 14.2 % (11.6-17.2); WHITE BLOOD COUNT 8.4 TH/MM3 (4.0-11.0)
[2017-11-30] MEDS ORDERED: SYNT88TA PO ×2 (07:45→07:51)
[2017-11-30] MEDS ORDERED: GABA300C5 PO (07:45)
[2017-11-30] MEDS ORDERED: GABA600T PO (07:45)
[2017-11-30 07:49] LABS: INTERNATIONAL NORMALIZED RATIO 1.1 RATIO; PROTHROMBIN TIME - PATIENT 10.7 SEC (9.8-11.6)
[2017-11-30] MEDS ORDERED: CARB25TA9 PO (07:51)
[2017-11-30] MEDS ORDERED: LISI-519 PO (07:51)
[2017-11-30] MEDS ORDERED: DORZ2SOL RIGHT EYE (07:51)
[2017-11-30] MEDS ORDERED: ATRO1SOL11 RIGHT EYE (07:51)
[2017-11-30] MEDS ORDERED: RANI150T PO (07:51)
[2017-11-30] MEDS ORDERED: PANT40TA3 PO (07:51)
[2017-11-30 07:55] LABS: ALBUMIN 2.8 GM/DL (3.4-5.0); BICARBONATE 25.6 MEQ/L (21.0-32.0); BLOOD UREA NITROGEN 13 MG/DL (7-18); CALCIUM 8.7 MG/DL (8.5-10.1); CHLORIDE 107 MEQ/L (98-107); CREATININE 1.22 MG/DL (0.60-1.30); GLOMERULAR FILTRATION RATE 57 ML/MIN (>89); GLUCOSE,RANDOM 103 MG/DL (74-106); SODIUM (NA) 141 MEQ/L (136-145)
[2017-11-30 07:56] LABS: ALT (GPT) 20 U/L (12-78); AST (GOT) 22 U/L (15-37)
[2017-11-30 07:58] LABS: ALKALINE PHOSPHATASE 58 U/L (45-117); TOTAL BILIRUBIN ADULT 0.4 MG/DL (0.2-1.0); TOTAL PROTEIN 9.7 GM/DL (6.4-8.2)
[2017-11-30 09:30] VITALS: BP 180/90; PULSE 81; RESP 20; O2SAT 95
[2017-11-30 09:50] LABS: BACTERIA, URINE OCC /hpf; BILIRUBIN, URINE NEG (NEG); BLOOD, URINE NEG (NEG); GLUCOSE,URINE NEG (NEG); KETONE, URINE NEG (NEG); MUCUS URINE FEW /lpf (OCC); NITRITE,URINE NEG (NEG); SQUAMOUS EPITHELIAL CELL URINE <1 /hpf (0-5); URINE COLOR YELLOW (YELLW/STRAW); URINE LEUKOCYTE ESTERASE NEG (NEG)
--- NOTE | 2017-11-30 10:27 | RADRPT ---
EXAM DATE: 11/30/2017 10:14 AM EDT AGE/SEX: 82 years / Male INDICATIONS: Left lower quadrant pain, nausea, vomiting. CLINICAL DATA: This is the patient's initial encounter. Patient reports that signs and symptoms have been present for 1 day and indicates a pain score of 6/10. MEDICAL/SURGICAL HISTORY: Hypertension. Benign Prostatic Hyperplasia. Appendectomy. Bilateral hernia repairs. ORAL CONTRAST: Prescribed oral contrast ingested. RADIATION DOSE: 15.86 CTDI (mGy) COMPARISON: TLI, PET/CT TUMOR, 05/16/2016. . TECHNIQUE: Multiple contiguous axial images were obtained through the abdomen and pelvis following b olus infusion of 98 ml Omnipaque 350 (iohexol) nonionic water-soluble contrast as a single exam dos e. Prescribed oral contrast ingested. Using automated exposure control and adjustment of the mA and/ or kV according to patient size, the radiation dose was kept as low as reasonably achievable to obtai n optimal diagnostic quality images. FINDINGS: Lower Lungs: The visualized lower lungs are clear. Liver: The liver has a homogeneous density. There is a stable 7 mm cyst in the right lobe of the live r just underneath the right hemidiaphragm. Gallbladder is grossly unremarkable. There is no dilation of the biliary tree. Spleen: Homogeneous density without enlargement. Pancreas: Unremarkable without mass or calcification. Kidneys: Normal in size and shape. No evidence of mass or hydronephrosis. Stable 4.5 cm cyst upper p ole right kidney. 8 mm cyst lower pole left kidney. Adrenal Glands: Stable bilateral adrenal masses, left greater than right. The left adrenal mass wan sures 4 cm x 3.8 cm. The right adrenal mass measures 2.5 cm x 2.2 cm. No significant change compared to 2016. These are most likely bilateral adrenal adenomas. Aorta: Atherosclerotic changes. Mild aneurysmal dilatation measuring 3.4 cm in AP diameter. No sign ificant change compared to 2016. Bowel/Mesentery: The bowel loops are grossly unremarkable. The cecum and sigmoid colon have a normal configuration. Scattered diverticulosis of the sigmoid colon without inflammatory changes. No free f luid or loculated fluid collections. There is stool throughout the colon. Abdominal Wall: Intact. Retroperitoneum: No evidence of adenopathy in the retrocrural, para-aortic, or deep pelvic regions. Bladder: Contours are smooth. Reproductive Organs: The prostate measures 5.0 cm. Inguinal: The inguinal region is unremarkable without evidence of adenopathy. Bony Structures: Stable primary degenerative changes. No significant change compared to the PET/CT from 2016. CONCLUSION: 1. Scattered diverticulosis of the sigmoid colon without inflammatory changes. 2. Stable bilateral adrenal masses, left greater than right most likely representing adrenal adenoma s. 3. Benign-appearing bilateral renal cysts. 4. Stable 7 mm cyst right lobe of the liver. 5. Mild aneurysmal dilatation of the abdominal aorta. Electronically signed by: Tre Gale MD 11/30/2017 10:25 AM EDT
[2017-11-30] MEDS ORDERED: MORPHINE SULFATE 2 MG/ML SYRINGE IV PUSH ONE (10:30)
[2017-11-30] MEDS ORDERED: ZOFR4TAB3 SL (10:42)
[2017-11-30 12:00] VITALS: BP 170/84; PULSE 80; RESP 18; O2SAT 96
[2017-12-01] MEDS ORDERED: CIPR-9 PO (03:29)
[2017-12-01] MEDS ORDERED: METR-1 PO (03:29)
[2017-12-01] MEDS ORDERED: ZOFR4TAB3 SL (03:29)
--- NOTE | 2017-12-01 12:52 | EKG ---
Date Performed: 11/30/2017 Time Performed: 07:07:03 PTAGE: 82 years EKG: Sinus rhythm WITH SINUS ARRHYTHMIA MODERATE INTRAVENTRICULAR CONDUCTION DELAY FIRST DEGREE AV BLOCK BORDERLINE EC G Since PREVIOUS TRACING , no significant change noted PREVIOUS TRACIN12/12/2016 11.58 DOCTOR: Be Szymanski Interpretating Date/Time 12/01/2017 12:51:59
== END 2017-11-30 12:07 | disposition home or self-care (01) ==
LOC: NEPE 06:44
DX: R10.32 Left lower quadrant pain (principal); K57.30 Diverticulosis of large intestine without perforation or abscess without bleeding; E27.9 Disorder of adrenal gland, unspecified; N28.1 Cyst of kidney, acquired; K76.89 Other specified diseases of liver; I71.4 Abdominal aortic aneurysm, without rupture; R11.2 Nausea with vomiting, unspecified; E03.9 Hypothyroidism, unspecified; E78.00 Pure hypercholesterolemia, unspecified; I10 Essential (primary) hypertension
CPT/HCPCS: 74177; 80053; 81001; 83605; 83690; 85025; 85610; 85730; 93005; 96361; 96374; 96376; 99285; J2270; J7040; Q9963; Q9967

== ENCOUNTER 2017-11-30 22:08 | Emergency (ER) | payer MEDICARE ==
[~2017-11-30] VITALS: Ht 190.5 cm; Wt 98.6 kg
[~2017-11-30 22:08] MED LIST changes: +ATRO1SOL11 RIGHT EYE; +CARB25TA9 PO; +DORZ2SOL RIGHT EYE; +GABA600T PO; +LISI-519 PO; +PANT40TA3 PO; +RANI150T PO
[2017-11-30 22:14] VITALS: BP 167/86; PULSE 90; RESP 16; TEMP 97.6; O2SAT 95
--- NOTE | 2017-11-30 22:18 | PD ---
HPI Chief Complaint: Abdominal Pain Time Seen by Provider: 22:17 Travel History International Travel<30 days: No Contact w/Intl Traveler<30days: No Traveled to known affect area: No History of Present Illness HPI Patient, returns to the emergency department complaining of nausea vomiting as well as abdominal cramping pain, rated 4 out of 10. States that he has had it all day long he was seen earlier today in the emergency department and had a workup. He was discharged with a prescription for Zofran which he did not fill. No alleviating or aggravating factors. Patient denies any associated factors such as fever, rash, headache, neck pain, back pain, sore throat/cough/ runny nose. On earlier evaluation the CT abdomen and pelvis performed at 10 in the morning on November 30, 2017 was read as scattered diverticulosis of the sigmoid colon without inflammatory changes, stable bilateral adrenal masses left greater than right most likely representing adrenal adenomas, benign-appearing bilateral renal cysts, and a stable 7 mm cyst right lobe of the liver. CBC did not show any leukocytosis, no anemia with an H&H of 11.9/34.7, normal platelet count of 206,000, but a mild neutrophilia of 82%. Regulation profile is within normal limits. Electrolytes are all within normal limits, normal kidney liver and pancreatic enzymes. UA did not show any evidence of a UTI No known drug allergy Past medical history significant for hypothyroidism, macular degeneration, peripheral neuropathy, hypercholesterolemia, hypertension, appendectomy, bilateral inguinal hernia repair, renal disease chronic kidney disease stage II , benign prostatic hypertrophy, inguinal hernia repair, bilateral knee replacements, diabetes negative claustrophobia, C. difficile PFSH Past Medical History Hx Anticoagulant Therapy: No Arthritis: Yes Autoimmune Disease: No Heart Rhythm Problems: Yes Cancer: No Cardiovascular Problems: Yes High Cholesterol: Yes Chest Pain: No Congestive Heart Failure: No Cerebrovascular Accident: No Diminished Hearing: No Endocrine: Yes Hypertension: Yes Immune Disorder: No Inguinal Hernia: Yes (BILAT REPAIRED) Implanted Vascular Access Dvce: Yes Kidney Stones: No Musculoskeletal: Yes Neurologic: Yes (PERIPHERAL NEUROPATHY) Psychiatric: No Reproductive: No Respiratory: No Migraines: No Renal Failure: No Seizures: No Thyroid Disease: Yes (HYPO) Past Surgical History Abdominal Surgery: Yes ( BILAT INGUINAL HERNIA REPAIR, APPY) AICD: No Appendectomy: Yes Arteriovenous Shunt: No Body Medical Devices: 4 RODS IN RIGHT ARM Cardiac Surgery: No Ear Surgery: No Endocrine Surgery: No Eye Surgery: Yes Genitourinary Surgery: No Insulin Pump: No Joint Replacement: Yes (BILAT KNEE) Oral Surgery: No Pacemaker: No Thoracic Surgery: No Other Surgery: Yes (LEFT SHOULDER, ELBOW) Social History Alcohol Use: No Tobacco Use: No Substance Use: No Allergies-Medications (Allergen,Severity, Reaction): Coded Allergies: *MDRO Multi-Drug Resistant Organism (Verified Allergy, Unknown, 11/30/17) C.diff 11/2013 Reported Meds & Prescriptions Reported Meds & Active Scripts Active Zofran Odt (Ondansetron Odt) 4 Mg Tab 4 Mg SL Q6HR PRN Reported Carbidopa-Levodopa 25-100 Mg Tab 1 Tab PO BID Ranitidine (Ranitidine HCl) 150 Mg Tab 150 Mg PO HS Pantoprazole (Pantoprazole Sodium) 40 Mg Tab 40 Mg PO DAILY Dorzolamide Opth Drops (Dorzolamide HCl) 2% Soln 2 Drop RIGHT EYE DAILY Atropine Opth Drops 1% Soln 1 Drop RIGHT EYE DAILY Lisinopril 5 Mg Tab 5 Mg PO DAILY Synthroid (Levothyroxine Sodium) 88 Mcg Tab 2 Tab PO SATURDAY Synthroid (Levothyroxine Sodium) 88 Mcg Tab 88 Mcg PO DAILY saturday - saturday Gabapentin 300 Mg Cap 300 Mg PO HS Gabapentin 600 Mg Tab 600 Mg PO DAILY Travatan Z Opth Drops (Travoprost) 0.004 % Soln 1 Drop RIGHT EYE HS Pravastatin 80 Mg Tab 80 Mg PO DAILY Thera M Plus (Multivitamins/Minerals Therapeutic) 1 Tab 1 Tab PO DAILY Ventolin Hfa 18 GM Inh (Albuterol Sulfate) 90 Mcg/Act Aer 2 Puff INH Q4-6H PRN Review of Systems General / Constitutional: No: Fever Eyes: No: Visual changes HENT: No: Headaches Cardiovascular: No: Chest Pain or Discomfort Respiratory: No: Shortness of Breath Gastrointestinal: Positive: Nausea, Vomiting, Abdominal Pain Genitourinary: No: Dysuria Musculoskeletal: No: Pain Skin: No Rash Neurologic: No: Weakness Psychiatric: No: Depression Endocrine: No: Polydipsia Hematologic/Lymphatic: No: Easy Bruising Physical Exam Narrative GENERAL: SKIN: Warm and dry. HEAD: Atraumatic. Normocephalic. EYES: Pupils equal and round. No scleral icterus. No injection or drainage. ENT: No nasal bleeding or discharge. Mucous membranes pink and moist. NECK: Trachea midline. No JVD. CARDIOVASCULAR: Regular rate and rhythm. RESPIRATORY: No accessory muscle use. Clear to auscultation. Breath sounds equal bilaterally. GASTROINTESTINAL: Abdomen soft, mild suprapubic tenderness to percussion, no rebound guarding or rigidity. MUSCULOSKELETAL: Extremities without clubbing, cyanosis, or edema. No obvious deformities. NEUROLOGICAL: Awake and alert. No obvious cranial nerve deficits. Motor grossly within normal limits. Five out of 5 muscle strength in the arms and legs. Normal speech. PSYCHIATRIC: Appropriate mood and affect; insight and judgment normal. Data Data Last Documented VS Vital Signs Date Time Temp Pulse Resp B/P (MAP) Pulse Ox O2 Delivery O2 Flow Rate FiO2 11/30/17 22:14 97.6 90 16 167/86 (113) 95 Orders Orders Comprehensive Metabolic Panel (11/30/17 22:26) Lipase (11/30/17 22:26) Iv Access Insert/Monitor (11/30/17 22:26) Ecg Monitoring (11/30/17 22:26) Oximetry (11/30/17 22:26) NPO (11/30/17 22:26) Metronidazole 500 Mg Inj (Flagyl 500 Mg (11/30/17 22:30) Ceftriaxone Inj (Rocephin Inj) (11/30/17 22:30) Sodium Chlor 0.9% 1000 Ml Inj (Ns 1000 M (11/30/17 22:26) Sodium Chloride 0.9% Flush (Ns Flush) (11/30/17 22:30) Ondansetron Odt (Zofran Odt) (11/30/17 22:30) Labs Laboratory Tests Test 11/30/17 20:56 Blood Urea Nitrogen 11 MG/DL Creatinine 1.03 MG/DL Random Glucose 132 MG/DL Total Protein 8.9 GM/DL Albumin 2.6 GM/DL Calcium Level 7.9 MG/DL Alkaline Phosphatase 54 U/L Aspartate Amino Transf (AST/SGOT) 18 U/L Alanine Aminotransferase (ALT/SGPT) 14 U/L Total Bilirubin 0.5 MG/DL Sodium Level 142 MEQ/L Potassium Level 3.3 MEQ/L Chloride Level 108 MEQ/L Carbon Dioxide Level 21.0 MEQ/L Anion Gap 13 MEQ/L Estimat Glomerular Filtration Rate 69 ML/MIN Lipase 47 U/L MDM Medical Decision Making Medical Screen Exam Complete: Yes Emergency Medical Condition: Yes Medical Record Reviewed: Yes Differential Diagnosis Gastroenteritis versus enteritis versus UTI versus colitis Narrative Course Elect lites are within normal limits potassium is 3.3, normal kidney function, normal liver and pancreatic functions Glucose slightly elevated at 132 Diagnosis Primary Impression: Gastroenteritis Patient Instructions: Gastroenteritis (ED), General Instructions Scripts Ondansetron Odt (Zofran Odt) 4 Mg Tab 4 MG SL Q6HR Y for Nausea/Vomiting, #16 TAB 0 Refills Prov: Karel Bee MD 12/01/17 Metronidazole (Flagyl) 500 Mg Tab 500 MG PO TID for Infection for 10 Days, #30 TAB 0 Refills Prov: Karel Bee MD 12/01/17 Ciprofloxacin (Cipro) 500 Mg Tab 500 MG PO BID for Infection for 5 Days, #10 TAB 0 Refills Prov: Karel Bee MD 12/01/17 Disposition: 01 DISCHARGE HOME Condition: Stable Karel Bee MD November 30, 2017 22:18
[2017-11-30] MEDS ORDERED: SODIUM CHLOR 0.9% 1000 ML INJ 500 ML IV SCH (22:26)
[2017-11-30] MEDS ORDERED: SODIUM CHLORIDE 0.9% FLUSH 10 ML FLUSH IV FLUSH PRN (22:30)
[2017-11-30] MEDS ORDERED: cefTRIAXone INJ 1,000 MG in SODIUM CHLORIDE 0.9% INJ 100 ML IV ONE (22:30)
[2017-11-30] MEDS ORDERED: metroNIDAZOLE 500 MG INJ 100 ML IV ONE (22:30)
[2017-11-30] MEDS ORDERED: ONDANSETRON ODT 4 MG TAB PO ONE (22:30)
[2017-11-30 23:38] LABS: ALBUMIN 2.6 GM/DL (3.4-5.0); AST (GOT) 18 U/L (15-37); BLOOD UREA NITROGEN 11 MG/DL (7-18); CALCIUM 7.9 MG/DL (8.5-10.1); CHLORIDE 108 MEQ/L (98-107); CREATININE 1.03 MG/DL (0.60-1.30); GLOMERULAR FILTRATION RATE 69 ML/MIN (>89); GLUCOSE,RANDOM 132 MG/DL (74-106); SODIUM (NA) 142 MEQ/L (136-145)
[2017-11-30 23:41] LABS: ALKALINE PHOSPHATASE 54 U/L (45-117); ALT (GPT) 14 U/L (12-78); TOTAL BILIRUBIN ADULT 0.5 MG/DL (0.2-1.0); TOTAL PROTEIN 8.9 GM/DL (6.4-8.2)
[2017-12-01] MEDS ORDERED: ZOFR4TAB3 SL (03:29)
[2017-12-01] MEDS ORDERED: METR-1 PO (03:29)
[2017-12-01] MEDS ORDERED: CIPR-9 PO (03:29)
[2017-12-01 05:25] VITALS: BP 176/82; PULSE 82; RESP 16; O2SAT 96
[2017-12-01 07:18] VITALS: BP 174/88; PULSE 87; RESP 16; O2SAT 95
== END 2017-12-01 12:14 | disposition home or self-care (01) ==
LOC: NEPE 22:08 → NEDAMB 12-01 12:14
DX: K52.9 Noninfective gastroenteritis and colitis, unspecified (principal)
CPT/HCPCS: 80053; 83690; 96365; 96368; 99284; J0696; J7030

== ENCOUNTER 2017-12-06 11:19 | Observation (INO) | payer MEDICARE ==
[~2017-12-06] VITALS: Ht 190.5 cm; Wt 99.0 kg
[2017-12-06] VITALS (8 sets, daily range): BP systolic 120–159; BP diastolic 60–80; PULSE 68–85; RESP 16–24; TEMP 97.9–99.6; O2SAT 92–96
[~2017-12-06 11:19] MED LIST changes: -BACI500O9 TOPICAL; -CENTCHW3 PO; -CEPH-460 PO; +CIPR-9 PO; -DULO1CAP2 PO; -DULO30 PO; -DUONI NEB; -GABA300C3 PO; -LEVO88TA2 PO; -LISI-360 PO; -LISI10 PO; -LISI10TA3 PO; +METR-1 PO; -PRAV80 PO
[2017-12-06] MEDS ORDERED: SODIUM CHLORID 0.9% 500 ML INJ 500 ML IV ONE (11:45)
--- NOTE | 2017-12-06 11:50 | PD ---
HPI Chief Complaint: Syncope/Near-Syncope Time Seen by Provider: 11:32 Travel History International Travel<30 days: No Contact w/Intl Traveler<30days: No Traveled to known affect area: No History of Present Illness HPI 82-year-old male the presents to the ED for evaluation of syncope. Patient apparently had a syncopal episode while going to the bathroom today. Syncopal episode was not witnessed but patient was unresponsive at scene. [facility] showed up and patient was completely unresponsive and they could not find a pulse or blood pressure. Patient had an IV placed in some fluid given and patient came back to it. Currently he is alert oriented 4. No history of this in the past. He was seen here about a week ago for evaluation of abdominal pain and was diagnosed with gastroenteritis and start antibiotics. Per patient has been doing well until he does not feel 100% back to normal. He denies any nausea or vomiting currently. He denies take any blood thinners. He denies any his head but he does not remember what happened. He states feeling very cold but otherwise he denies any other symptoms other than weakness. No chest pain or shortness of breath. No urinary or bowel movement issues. No abdominal pain. PFSH Past Medical History Hx Anticoagulant Therapy: No Arthritis: Yes Autoimmune Disease: No Heart Rhythm Problems: Yes Cancer: No Cardiovascular Problems: Yes High Cholesterol: Yes Chest Pain: No Congestive Heart Failure: No Cerebrovascular Accident: No Diminished Hearing: No Endocrine: Yes Gastrointestinal Disorders: No Glaucoma: Yes Hypertension: Yes Immune Disorder: No Inguinal Hernia: Yes (BILAT REPAIRED) Implanted Vascular Access Dvce: Yes Kidney Stones: No Musculoskeletal: Yes Neurologic: Yes (PERIPHERAL NEUROPATHY) Psychiatric: No Reproductive: No Respiratory: No Migraines: No Renal Failure: No Seizures: No Thyroid Disease: Yes (HYPO) Influenza Vaccination: Yes ?: Not Past Surgical History Abdominal Surgery: Yes ( BILAT INGUINAL HERNIA REPAIR, APPY) AICD: No Appendectomy: Yes Arteriovenous Shunt: No Body Medical Devices: 4 RODS IN RIGHT ARM Cardiac Surgery: No Ear Surgery: No Endocrine Surgery: No Eye Surgery: Yes Genitourinary Surgery: No Insulin Pump: No Joint Replacement: Yes (BILAT KNEE) Oral Surgery: No Pacemaker: No Thoracic Surgery: No Other Surgery: Yes (LEFT SHOULDER, right ELBOW) Social History Alcohol Use: No Tobacco Use: No Substance Use: No Allergies-Medications (Allergen,Severity, Reaction): Coded Allergies: *MDRO Multi-Drug Resistant Organism (Verified Allergy, Unknown, 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) C.diff 11/2013 Reported Meds & Prescriptions Reported Meds & Active Scripts Active Reported Ranitidine (Ranitidine HCl) 150 Mg Tab 150 Mg PO HS Pantoprazole (Pantoprazole Sodium) 40 Mg Tab 40 Mg PO DAILY Dorzolamide Opth Drops (Dorzolamide HCl) 2% Soln 2 Drop RIGHT EYE DAILY Atropine Opth Drops 1% Soln 1 Drop RIGHT EYE DAILY Lisinopril 5 Mg Tab 5 Mg PO DAILY Synthroid (Levothyroxine Sodium) 88 Mcg Tab 2 Tab PO SATURDAY Synthroid (Levothyroxine Sodium) 88 Mcg Tab 88 Mcg PO DAILY saturday - saturday Gabapentin 300 Mg Cap 300 Mg PO HS Gabapentin 600 Mg Tab 600 Mg PO DAILY Travatan Z Opth Drops (Travoprost) 0.004 % Soln 1 Drop RIGHT EYE HS Pravastatin 80 Mg Tab 80 Mg PO DAILY Thera M Plus (Multivitamins/Minerals Therapeutic) 1 Tab 1 Tab PO DAILY Ventolin Hfa 18 GM Inh (Albuterol Sulfate) 90 Mcg/Act Aer 2 Puff INH Q4-6H PRN Review of Systems Except as stated in HPI: all other systems reviewed are Neg Physical Exam Narrative GENERAL: SKIN: Warm and dry. HEAD: Atraumatic. Normocephalic. EYES: Pupils equal and round. No scleral icterus. No injection or drainage. ENT: No nasal bleeding or discharge. Mucous membranes pink and moist. Tongue is midline. No uvula deviation. NECK: Trachea midline. No JVD. CARDIOVASCULAR: Regular rate and rhythm. no murmurs, s3, s4. RESPIRATORY: No accessory muscle use. Clear to auscultation. Breath sounds equal bilaterally. GASTROINTESTINAL: Abdomen soft, non-tender, nondistended. Hepatic and splenic margins not palpable. MUSCULOSKELETAL: Extremities without clubbing, cyanosis, or edema. No obvious deformities. Full ROM of the upper and lower extremities. 2+ pulses bilaterally. NEUROLOGICAL: Awake and alert. No obvious cranial nerve deficits. Motor grossly within normal limits. Five out of 5 muscle strength in the arms and legs. Normal speech. PSYCHIATRIC: Appropriate mood and affect; insight and judgment normal. Data Data Last Documented VS Vital Signs Date Time Temp Pulse Resp B/P (MAP) Pulse Ox O2 Delivery O2 Flow Rate FiO2 12/06/17 12:44 70 22 120/69 (86) 71 122/67 (85) 12/06/17 11:35 94 Room Air 12/06/17 11:29 98.2 Orders Orders Electrocardiogram (12/06/17 11:33) Complete Blood Count With Diff (12/06/17 11:33) Comprehensive Metabolic Panel (12/06/17 11:33) Ckmb (Isoenzyme) Profile (12/06/17 11:33) Troponin I (12/06/17 11:33) Prothrombin Time / Inr (Pt) (12/06/17 11:33) Act Partial Throm Time (Ptt) (12/06/17 11:33) Lipase (12/06/17 11:33) Urinalysis - C+S If Indicated (12/06/17 11:33) Magnesium (Mg) (12/06/17 11:33) Thyroid Stimulating Hormone (12/06/17 11:33) Chest, Single Ap (12/06/17 11:33) Ct Brain W/O Iv Contrast(Rout) (12/06/17 11:33) Iv Access Insert/Monitor (12/06/17 11:33) Ecg Monitoring (12/06/17 11:33) Oximetry (12/06/17 11:33) Orthostatic Vital Signs (12/06/17 11:33) Sodium Chlorid 0.9% 500 Ml Inj (Ns 500 M (12/06/17 11:45) CKMB (12/06/17 11:46) CKMB% (12/06/17 11:46) Free Thyroxine (T4) (12/06/17 13:43) Free T3 (12/06/17 13:43) Place In Observation (12/06/17 ) Vital Signs (Adult) ALICE.Q4H (12/06/17 13:43) Scd Bilateral/Knee High ALICE.QSHIFT (12/06/17 13:43) Regulatory Agency Director / Telemetry ALICE.Q8H (12/06/17 13:43) Activity Oob With Assistance (12/06/17 13:43) Consult Pt Eval & Treat (12/06/17 13:43) Us Carotid Arteries Comp Bilat (12/06/17 ) Holter Monitor Recording (12/06/17 ) Acetaminophen (Tylenol) (12/06/17 13:45) Albuterol Hfa Inh (Proair Hfa Inh) (12/06/17 13:45) Atropine 1% Opth Soln (Atropine 1% Opth (12/07/17 09:00) Dorzolamide 2% Opth Soln (Trusopt 2% Opt (12/07/17 09:00) Gabapentin (Neurontin) (12/06/17 21:00) Gabapentin (Neurontin) (12/07/17 09:00) Lisinopril (Prinivil) (12/07/17 09:00) Pantoprazole (Protonix) (12/07/17 09:00) Pravastatin (Pravachol) (12/07/17 09:00) Famotidine (Pepcid) (12/06/17 21:00) Latanoprost 0.005% Opth Soln (Xalatan 0. (12/06/17 21:00) Admit Order (Ed Use Only) (12/06/17 14:11) Ondansetron Odt (Zofran Odt) (12/06/17 14:30) Labs Laboratory Tests Test 12/06/17 11:46 12/06/17 13:21 White Blood Count 6.3 TH/MM3 Red Blood Count 3.22 MIL/MM3 Hemoglobin 11.2 GM/DL Hematocrit 33.1 % Mean Corpuscular Volume 102.8 FL Mean Corpuscular Hemoglobin 34.8 PG Mean Corpuscular Hemoglobin Concent 33.9 % Red Cell Distribution Width 13.8 % Platelet Count 244 TH/MM3 Mean Platelet Volume 7.8 FL Neutrophils (%) (Auto) 77.7 % Lymphocytes (%) (Auto) 12.8 % Monocytes (%) (Auto) 7.9 % Eosinophils (%) (Auto) 0.9 % Basophils (%) (Auto) 0.7 % Neutrophils # (Auto) 4.9 TH/MM3 Lymphocytes # (Auto) 0.8 TH/MM3 Monocytes # (Auto) 0.5 TH/MM3 Eosinophils # (Auto) 0.1 TH/MM3 Basophils # (Auto) 0.0 TH/MM3 CBC Comment DIFF FINAL Differential Comment Prothrombin Time 11.4 SEC Prothromb Time International Ratio 1.1 RATIO Activated Partial Thromboplast Time 22.6 SEC Blood Urea Nitrogen 11 MG/DL Creatinine 1.48 MG/DL Random Glucose 142 MG/DL Total Protein 8.8 GM/DL Albumin 2.3 GM/DL Calcium Level 7.9 MG/DL Magnesium Level 2.1 MG/DL Alkaline Phosphatase 48 U/L Aspartate Amino Transf (AST/SGOT) 35 U/L Alanine Aminotransferase (ALT/SGPT) 20 U/L Total Bilirubin 0.3 MG/DL Sodium Level 140 MEQ/L Potassium Level 4.0 MEQ/L Chloride Level 105 MEQ/L Carbon Dioxide Level 24.2 MEQ/L Anion Gap 11 MEQ/L Estimat Glomerular Filtration Rate 45 ML/MIN Total Creatine Kinase 194 U/L Creatine Kinase MB 1.1 NG/ML Troponin I LESS THAN 0.02 NG/ML Lipase 73 U/L Thyroid Stimulating Hormone 3rd Gen 20.400 uIU/ML Urine Color YELLOW Urine Turbidity CLEAR Urine pH 6.5 Urine Specific [place] 1.006 Urine Protein NEG mg/dL Urine Glucose (UA) NEG mg/dL Urine Ketones NEG mg/dL Urine Occult Blood NEG Urine Nitrite NEG Urine Bilirubin NEG Urine Urobilinogen LESS THAN 2.0 MG/DL Urine Leukocyte Esterase NEG Urine RBC LESS THAN 1 /hpf Urine WBC 1 /hpf Urine Squamous Epithelial Cells <1 /hpf Urine Hyaline Casts 2 /lpf Urine Mucus FEW /lpf Microscopic Urinalysis Comment CULT NOT INDICATED MDM Medical Decision Making Medical Screen Exam Complete: Yes Emergency Medical Condition: Yes Medical Record Reviewed: Yes Interpretation(s) CBC & BMP Diagram 12/06/17 11:46 Total Protein 8.8 H, Albumin 2.3 L, Calcium Level 7.9 L, Magnesium Level 2.1, Alkaline Phosphatase 48, Aspartate Amino Transf (AST/SGOT) 35, Alanine Aminotransferase (ALT/SGPT) 20, Total Bilirubin 0.[address] 12/06/17 1133 Signed Impressions: CONCLUSION: 1. 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 Significant mass effect or hemorr estefania is not seen. These findings were present on the prior exam. 2. Mild atrophy. 3. Increased density seen throughout the right globe. This was present previou sly. Chest X-Ray 12/06/17 1133 Addendum Impressions: CONCLUSION: Minimal parental changes left base Moderate compensated cardiomegaly. EKG shows sinus rhythm and some of acute ischemia or arrhythmia rhythm and attending. Troponin and CK-MB negative. Differential Diagnosis Syncope versus dizziness versus vasovagal episode versus dehydration versus infection versus sepsis Narrative Course 82-year-old male that presents to the ED for evaluation of syncope. Patient was properly examined and was found to have signs and symptoms consistent with syncope. Unclear etiology at this time will likely vasovagal although we cannot rule out significant illness secondary to the patient's medical history. Labs and imaging order. Labs and imaging showed elevated TSH. Otherwise unremarkable exam. Patient did have orthostats done and orthostatic hypotension was not found but was very symptomatic with standing, feeling weak and dizzy. Family is highly concerned because the patient syncopal episode. Patient apparently was out for a couple of minutes before he came back to it. Case was discussed with my attending Dr. Del Real who recommends admission for opts for further evaluation of the syncope. Case discussed with Dr Kaplan' s medical student who relied message that Dr Kaplan will take patient [facility]. Diagnosis Primary Impression: Syncope Qualified Codes: R55 - Syncope and collapse Admitting Information Admitting Physician Requests: Observation Jesus Yao Dec 06, 2017 11:50
--- NOTE | 2017-12-06 11:59 | RADRPT ---
EXAM DATE: 12/06/2017 11:57 AM EDT AGE/SEX: 82 years / Male INDICATIONS: Syncope CLINICAL DATA: This is the patient's initial encounter. Patient reports that signs and symptoms have been present for 1 day and indicates a pain score of 0/10. MEDICAL/SURGICAL HISTORY: None. . Left shoulder ORIF COMPARISON: [facility] [place]ST SINGLE AP, 01/23/2016. . FINDINGS: Cardiomegaly without failure. No pneumothorax. Minimal parental changes left base. Right lung clear. The portion of the bony skeleton visualized is unremarkable. CONCLUSION: Minimal parental changes left base Moderate compensated cardiomegaly. Electronically signed by: Ryan Willams MD 12/06/2017 11:58 AM EDT
[2017-12-06 12:04] LABS: AUTOMATED NEUTROPHIL # 4.9 TH/MM3 (1.8-7.7); BASOPHIL % 0.7 % (0.0-2.0); EOSINOPHIL # 0.1 TH/MM3 (0-0.4); EOSINOPHIL % 0.9 % (0.0-4.0); HEMATOCRIT 33.1 % (39.0-51.0); HEMOGLOBIN 11.2 GM/DL (13.0-17.0); LYMPH % 12.8 % (9.0-44.0); LYMPHOCYTE # 0.8 TH/MM3 (1.0-4.8); MEAN CELL VOLUME 102.8 FL (80.0-100.0); MEAN CORPUSCULAR HEMOGLOBIN 34.8 PG (27.0-34.0); MEAN CORPUSCULAR HGB CONC 33.9 % (32.0-36.0); MEAN PLATELET VOLUME 7.8 FL (7.0-11.0); MONO % 7.9 % (0.0-8.0); MONOCYTE # 0.5 TH/MM3 (0-0.9); NEUT % 77.7 % (16.0-70.0); PLATELET COUNT 244 TH/MM3 (150-450); RED BLOOD COUNT 3.22 MIL/MM3 (4.50-5.90); RED CELL DISTRIBUTION WIDTH 13.8 % (11.6-17.2); WHITE BLOOD COUNT 6.3 TH/MM3 (4.0-11.0)
[2017-12-06 12:11] LABS: INTERNATIONAL NORMALIZED RATIO 1.1 RATIO; PROTHROMBIN TIME - PATIENT 11.4 SEC (9.8-11.6)
--- NOTE | 2017-12-06 12:23 | RADRPT ---
EXAM DATE: 12/06/2017 12:09 PM EDT AGE/SEX: 82 years / Male INDICATIONS: Syncope episode. CLINICAL DATA: This is the patient's initial encounter. Patient reports that signs and symptoms have been present for 1 day and indicates a pain score of 0/10. MEDICAL/SURGICAL HISTORY: Cardiovascular disease. Hypertension. Diabetes mellitus type I. Appende ctomy. RADIATION DOSE: 38.80 CTDI (mGy) COMPARISON: COMP, CT BRAIN W/O CONTRAST, 05/28/2017. . TECHNIQUE: CT of the head without contrast. Using automated exposure control and adjustment of the mA and/or kV according to patient size, radiation dose was kept as low as reasonably achievable to ob tain optimal diagnostic quality images. FINDINGS: Cerebrum: The ventricles are normal for age. There is mild widening of the sulci. There is low densi ty in the right basal ganglia and extending superiorly into the centrum semiovale and periventricular white matter. No evidence of midline shift, mass lesion, hemorrhage or acute infarction. No extraax ial fluid collections are seen. Posterior Fossa: The cerebellum and brainstem are intact. The 4th ventricle is midline. The cerebe llopontine angle is unremarkable. Extracranial: There is increased density seen throughout the right globe. Skull: The calvaria is intact. No evidence of skull fracture. CONCLUSION: 1. Low-density the right basal ganglia and extending into the right periventricular white matter lik ajit from prior infarct. Significant mass effect or hemorrhage is not seen. These findings were presen t on the prior exam. 2. Mild atrophy. 3. Increased density seen throughout the right globe. This was present previously. Electronically signed by: Willi Cerda MD 12/06/2017 12:22 PM EDT
[2017-12-06 12:28] LABS: ALBUMIN 2.3 GM/DL (3.4-5.0); ALT (GPT) 20 U/L (12-78); AST (GOT) 35 U/L (15-37); BICARBONATE 24.2 MEQ/L (21.0-32.0); BLOOD UREA NITROGEN 11 MG/DL (7-18); CALCIUM 7.9 MG/DL (8.5-10.1); CHLORIDE 105 MEQ/L (98-107); CREATININE 1.48 MG/DL (0.60-1.30); GLOMERULAR FILTRATION RATE 45 ML/MIN (>89); GLUCOSE,RANDOM 142 MG/DL (74-106); MAGNESIUM 2.1 MG/DL (1.5-2.5); SODIUM (NA) 140 MEQ/L (136-145)
[2017-12-06 12:38] LABS: ALKALINE PHOSPHATASE 48 U/L (45-117); TOTAL BILIRUBIN ADULT 0.3 MG/DL (0.2-1.0); TOTAL PROTEIN 8.8 GM/DL (6.4-8.2); TROPONIN I LESS THAN 0.02 NG/ML (0.02-0.05)
[2017-12-06] MEDS ORDERED: ACETAMINOPHEN 325 MG TAB PO PRN (13:45)
[2017-12-06] MEDS ORDERED: ALBUTEROL SULFATE 90 MCG/ACT HFA 8 GM INHALER INH PRN (13:45)
[2017-12-06 13:51] LABS: BILIRUBIN, URINE NEG (NEG); BLOOD, URINE NEG (NEG); GLUCOSE,URINE NEG (NEG); HYALINE CAST, URINE 2 /lpf (RARE); KETONE, URINE NEG (NEG); MUCUS URINE FEW /lpf (OCC); NITRITE,URINE NEG (NEG); PH, URINE 6.5 (5.0-8.5); SQUAMOUS EPITHELIAL CELL URINE <1 /hpf (0-5); URINE COLOR YELLOW (YELLW/STRAW); URINE LEUKOCYTE ESTERASE NEG (NEG)
--- NOTE | 2017-12-06 14:11 | HHI.HP ---
HPI Service [facility] Hospitalists Primary Care Physician Hugo Coates MD Admission Diagnosis Syncope Chief Complaint: Syncope Travel History International Travel<30 Days: No Contact w/Intl Traveler <30 Da: No Traveled to Known Affected Are: No History of Present Illness Mr. 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 Pt was brought to the ED on 12/06/17 after a syncopal episode at home. Pt had a [facility] nurse helping him this morning onto the commode as he felt like he may need to have a BM. Pt reportedly urinated but had not had a BM but had a syncopal episode and was found down unresponsive in the bathroom by the [facility] Nurse and EVAC was called. Pt reportedly does not remember any of this and can't remember the EVAC ride to the hospital. He denies any hx of seizure disorder. He has reported hx of CVA based on previous imaging results but he denies any known symptoms of CVA. Pt was recently seen in the ED on 11/30/17 with a presumed gastroenteritis and had reported N/V and abdominal cramping and workup included CT abd/pelvis on 11/30/2017 was read as scattered diverticulosis of the sigmoid colon without inflammatory changes, stable bilateral adrenal masses left greater than right most likely representing adrenal adenomas, benign-appearing bilateral renal cysts, and a stable 7 mm cyst right lobe of the liver. CBC at that time the pts labs did not show any leukocytosis, no anemia with an H&H of 11.9/34.7, normal platelet count of 206,000, but a mild neutrophilia of 82%. Electrolytes were all within normal limits, normal kidney function and UA did not show any evidence of a UTI. Pt was discharged on Cipro x 5 days and Flagyl x 10 days. He reports that he improved clinically as far as the gastrointestinal symptoms and reported that he has been feeling well. He denies any diarrhea, constipation, nausea/vomiting. Pts repeat labs in the ED today noted some evidence of dehydration with Cr 1.48, BUN 11, GFR 45. First set of CE are negative. His TSH was significantly elevated at 20.400 and he denies any changes to his thyroid meds and has been taking his Synthroid daily. Pts vital signs have been stable in the ED. Head CT (12/06) noted low-density the right basal ganglia and extending into the right periventricular white matter likely from prior infarct, no significant mass effect or hemorrhage seen, these findings were present on the prior exam, mild atrophy, and increased density seen throughout the right globe which was present previously. He denies any dizziness, weakness, headache, chest pain, SOB, palpitations. Pt is somewhat of a difficult historian but his outpt records were reviewed. He was noted to have recently been weaned off Sinemet which he was started in October but he felt that it was causing worsening issues with his gait so this was weaned off. Review of Systems Constitutional: DENIES: Fever, Chills, Dizziness Ears, nose, mouth, throat: DENIES: Hearing loss Respiratory: DENIES: Cough, Shortness of breath Cardiovascular: DENIES: Chest pain, Palpitations, Dyspnea on Exertion, Lower Extremity Edema Gastrointestinal: DENIES: Abdominal pain, Diarrhea, Nausea, Reflux, Vomiting Genitourinary: DENIES: Urinary frequency Musculoskeletal: DENIES: Back pain, Neck pain Neurologic: COMPLAINS OF: Abnormal gait (chronic), Poor Balance, DENIES: Headache, Localized weakness, Seizures, Speech Problems Past Family Social History Past Medical History Abdominal aortic aneurysm, max diameter 4.3cm in 07/2017 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 Short Atherosclerosis of the aorta Coronary artery disease Carotid artery disease CKD, stage II Macular degeneration Hypertension Hyperlipidemia Hypothyroidism Peripheral neuropathy Osteoarthritis Hx of pelvic fracture BPH 2D echo (01/26/16): - Mild LVH - Estimated EF 55-60% Past Surgical History Appendectomy in 1956 Cataract surgery Elbow surgery Inguinal hernia repair in 1966 and 1972 Total knee arthroplasty bilaterally, right in 1995 and left in 1994 Open reduction internal fixation left proximal humeral fracture in 2013 Reported Medications Ranitidine (Ranitidine HCl) 150 Mg Tab 150 Mg PO HS Pantoprazole (Pantoprazole Sodium) 40 Mg Tab 40 Mg PO DAILY Dorzolamide Opth Drops (Dorzolamide HCl) 2% Soln 2 Drop RIGHT EYE DAILY Atropine Opth Drops 1% Soln 1 Drop RIGHT EYE DAILY Lisinopril 5 Mg Tab 5 Mg PO DAILY Synthroid (Levothyroxine Sodium) 88 Mcg Tab 2 Tab PO MAY Synthroid (Levothyroxine Sodium) 88 Mcg Tab 88 Mcg PO DAILY saturday - saturday Gabapentin 300 Mg Cap 300 Mg PO HS Gabapentin 600 Mg Tab 600 Mg PO DAILY Travatan Z Opth Drops (Travoprost) 0.004 % Soln 1 Drop RIGHT EYE HS Pravastatin 80 Mg Tab 80 Mg PO DAILY Thera M Plus (Multivitamins/Minerals Therapeutic) 1 Tab 1 Tab PO DAILY Ventolin Hfa 18 GM Inh (Albuterol Sulfate) 90 Mcg/Act Aer 2 Puff INH Q4-6H PRN ??Carbidopa-levodopa 25-100mg PO 0.5 tablet TID, recently weaned off Allergies: Coded Allergies: *MDRO Multi-Drug Resistant Organism (Verified Allergy, Unknown, 12/06/17) C.diff 11/2013 Family History Noncontributory Social History He is and lives with his 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 SKIN: No rashes, ecchymoses or lesions. Cool and dry. HEENT: Atraumatic. Normocephalic. No temporal or scalp tenderness. No scleral icterus. Erythema in the posterior pharynx, tongue appears to be dry, possible bite deepak on the left side of the tongue NECK: Trachea midline, supple, nontender. CARDIO: Regular. RESP: CTA bilaterally. No wheezes, rales, or rhonchi. ABD: +BS, soft, non-tender, nondistended. EXT: Extremities without clubbing, cyanosis, or edema. NEURO: Awake and alert. Motor and sensory grossly within normal limits. Normal speech. Laboratory Laboratory Tests Test 12/06/17 11:46 12/06/17 13:21 White Blood Count 6.3 Red Blood Count 3.22 Hemoglobin 11.2 Hematocrit 33.1 Mean Corpuscular Volume 102.8 Mean Corpuscular Hemoglobin 34.8 Mean Corpuscular Hemoglobin Concent 33.9 Red Cell Distribution Width 13.8 Platelet Count 244 Mean Platelet Volume 7.8 Neutrophils (%) (Auto) 77.7 Lymphocytes (%) (Auto) 12.8 Monocytes (%) (Auto) 7.9 Eosinophils (%) (Auto) 0.9 Basophils (%) (Auto) 0.7 Neutrophils # (Auto) 4.9 Lymphocytes # (Auto) 0.8 Monocytes # (Auto) 0.5 Eosinophils # (Auto) 0.1 Basophils # (Auto) 0.0 CBC Comment DIFF FINAL Differential Comment Prothrombin Time 11.4 Prothromb Time International Ratio 1.1 Activated Partial Thromboplast Time 22.6 Blood Urea Nitrogen 11 Creatinine 1.48 Random Glucose 142 Total Protein 8.8 Albumin 2.3 Calcium Level 7.9 Magnesium Level 2.1 Alkaline Phosphatase 48 Aspartate Amino Transf (AST/SGOT) 35 Alanine Aminotransferase (ALT/SGPT) 20 Total Bilirubin 0.3 Sodium Level 140 Potassium Level 4.0 Chloride Level 105 Carbon Dioxide Level 24.2 Anion Gap 11 Estimat Glomerular Filtration Rate 45 Total Creatine Kinase 194 Creatine Kinase MB 1.1 Troponin I LESS THAN 0.02 Lipase 73 Thyroid Stimulating Hormone 3rd Gen 20.400 Urine Color YELLOW Urine Turbidity CLEAR Urine pH 6.5 Urine Specific [place] 1.006 Urine Protein NEG Urine Glucose (UA) NEG Urine Ketones NEG Urine Occult Blood NEG Urine Nitrite NEG Urine Bilirubin NEG Urine Urobilinogen LESS THAN 2.0 Urine Leukocyte Esterase NEG Urine RBC LESS THAN 1 Urine WBC 1 Urine Squamous Epithelial Cells <1 Urine Hyaline Casts 2 Urine Mucus FEW Microscopic Urinalysis Comment CULT NOT INDICATED Result Diagram: 12/06/17 1146 12/06/17 1146 Imaging Last Impressions Head CT 12/06/17 1133 Signed Impressions: CONCLUSION: 1. 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 Significant mass effect or hemorr estefania is not seen. These findings were present on the prior exam. 2. Mild atrophy. 3. Increased density seen throughout the right globe. This was present previou sly. Chest X-Ray 12/06/17 1133 Addendum Impressions: CONCLUSION: Minimal parental changes left base Moderate compensated cardiomegaly. Caprini VTE Risk Assessment Caprini VTE Risk Assessment: Mod/High Risk (score >= 2) Caprini Risk Assessment Model Point Value = 1 Point Value = 2 Point Value = 3 Point Value = 5 Age 41-60 Minor surgery BMI > 25 kg/m2 Swollen legs Varicose veins or History of unexplained or recurrent spontaneous Oral contraceptives or hormone replacement Sepsis (< 1 month) Serious lung disease, including pneumonia (< 1 month) Abnormal pulmonary function Acute myocardial infarction Congestive heart failure (< 1 month) History of inflammatory bowel disease Medical patient at bed rest Age 61-74 Arthroscopic surgery Major open surgery (> 45 min) Laparoscopic surgery (> 45 min) Malignancy Confined to bed (> 72 hours) Immobilizing plaster cast Central venous access Age >= 75 History of VTE Family history of VTE Factor V Leiden Prothrombin [id number] Lupus anticoagulant Anticardiolipin antibodies Elevated serum homocysteine Heparin-induced thrombocytopenia Other congenital or acquired thrombophilia Stroke (< 1 month) Elective arthroplasty Hip, pelvis, or leg fracture Acute spinal cord injury (< 1 month) Prophylaxis Regimen Total Risk Factor Score Risk Level Prophylaxis Regimen 0-1 Low Early ambulation 2 Moderate Order ONE of the following: *Sequential Compression Device (SCD) *Heparin 5000 units SQ BID 3-4 Higher Order ONE of the following medications: *Heparin 5000 units SQ TID *Enoxaparin/Lovenox 40 mg SQ daily (WT < 150 kg, CrCl > 30 mL/min) *Enoxaparin/Lovenox 30 mg SQ daily (WT < 150 kg, CrCl > 10-29 mL/min) *Enoxaparin/Lovenox 30 mg SQ BID (WT < 150 kg, CrCl > 30 mL/min) AND/OR *Sequential Compression Device (SCD) 5 or more Highest Order ONE of the following medications: *Heparin 5000 units SQ TID (Preferred with Epidurals) *Enoxaparin/Lovenox 40 mg SQ daily (WT < 150 kg, CrCl > 30 mL/min) *Enoxaparin/Lovenox 30 mg SQ daily (WT < 150 kg, CrCl > 10-29 mL/min) *Enoxaparin/Lovenox 30 mg SQ BID (WT < 150 kg, CrCl > 30 mL/min) AND *Sequential Compression Device (SCD) Assessment and Plan Problem List: (1) Syncope ICD Codes: R55 - Syncope Status: Acute Plan: Syncope - Pt is an 82 y/o WM with AAA, 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 - Pt was brought to the ED on 12/06/17 after a syncopal episode at home. This occurred this morning while he was on the commode and was found down unresponsive in the bathroom by the [facility] Nurse and EVAC was called. - Pts repeat labs in the ED today noted some evidence of dehydration with Cr 1.48, BUN 11, GFR 45. First set of CE are negative. - His TSH was significantly elevated at 20.400 and he denies any changes to his thyroid meds and has been taking his Synthroid daily. - Pts vital signs have been stable in the ED, no evidence of bradycardia. - Head CT (12/06) ---> low-density the right basal ganglia and extending into the right periventricular white matter likely from prior infarct, no significant mass effect or hemorrhage seen, these findings were present on the prior exam, mild atrophy, and increased density seen throughout the right globe which was present previously. - Etiology for the syncope is unclear, could be vasovagal syncope possibly related to dehydration vs. orthostatic hypotension vs. cardiac dysrhythmia vs. seizure vs. autonomic dysfunction vs. other - Give IVF - Telemetry - Holter Monitor - Carotid US - EEG - Check orthostatic vital signs - PT evaluation in AM - Trend troponin - Supportive care - DVT prophylaxis with SCDs Acute on chronic kidney disease, likely related to dehydration from recent gastroenteritis - Give IVF - Recheck labs in AM HTN - Cont. home meds for now - Monitor Hypothyroidism - TSH at admission was 20 and review of outpt labs with TSH of 2 in september 2017 - Check Free T4 - Resume home dose of Synthroid for now Hyperlipidemia - Cont. home meds Peripheral Neuropathy - Cont. home dose of Gabapentin (2) Hypertension ICD Codes: I10 - Hypertension Status: Chronic (3) Hyperlipidemia ICD Codes: E78.5 - Hyperlipidemia Status: Chronic (4) Hypothyroidism ICD Codes: E03.9 - Hypothyroidism, unspecified Status: Chronic (5) Peripheral neuropathy ICD Codes: G62.9 - Peripheral neuropathy Status: Acute Problem Qualifiers (1) Syncope: Qualified Codes: R55 - Syncope and collapse Mimi Ruff Dec 06, 2017 14:11
[2017-12-06] MEDS ORDERED: ONDANSETRON ODT 4 MG TAB PO PRN (14:30)
--- NOTE | 2017-12-06 14:47 | RADRPT ---
EXAM DATE: 12/06/2017 2:36 PM EDT AGE/SEX: 82 years / Male INDICATIONS: Syncope. CLINICAL DATA: This is the patient's initial encounter. Patient reports that signs and symptoms have been present for 1 day and indicates a pain score of 0/10. MEDICAL/SURGICAL HISTORY: Hypothyroidism. Hypercholesterolemia. Hypertension. Arthritis. Anil ateral inguinal hernia. Stage two chronic kidney disease. Enlarged prostate. Peripheral neuropathy. Appendectomy. Left shoulder. Right elbow. Inguinal repair. COMPARISON: No prior [place] exams available for comparison. No external comparison. VELOCITY PARAMETERS: ICA/CCA Ratio: Right 1.3 , Left 0.8 ICA: Right 89 cm/sec, Left 71 cm/sec CCA: Right 68 cm/sec, Left 90 cm/sec ECA: Right 59 cm/sec, Left 46 cm/sec Vertebral: Right 31 cm/sec antegrade, Left 34 cm/sec antegrade FINDINGS: Right Carotid: No significant stenosis is visualized. There is mild plaque in the bulb. The wavefor ms are within normal limits. Left Carotid: No significant stenosis is visualized. There is mild plaque in the bulb. The waveforms are within normal limits. Other: None. CONCLUSION: 1. Right Internal Carotid Artery: Mild plaque with no significant stenosis. 2. Left Internal Carotid Artery: Mild plaque with no significant stenosis. Electronically signed by: Bunny Pritchard MD 12/06/2017 2:45 PM EDT
[2017-12-06] MEDS: SODIUM CHLOR 0.9% 1000 ML INJ 1,000 ML IV SCH (15:33)
[2017-12-06 15:46] LABS: FREE T3 1.17 PG/ML (2.18-3.98); FREE T4 1.07 NG/DL (0.76-1.46)
[2017-12-06] MEDS: LEVOTHYROXINE SODIUM 88 MCG TAB PO SCH (17:15)
[2017-12-06 19:29] LABS: TROPONIN I LESS THAN 0.02 NG/ML (0.02-0.05)
[2017-12-06] MEDS ORDERED: LATANOPROST 0.005% OPHT SOLN 2.5 ML BTL RIGHT EYE SCH (21:00)
[2017-12-06] MEDS ORDERED: GABAPENTIN 300 MG CAP PO SCH (21:00)
[2017-12-06] MEDS ORDERED: FAMOTIDINE 20 MG TAB PO SCH (21:00)
[2017-12-07 03:22] VITALS: BP 179/82; PULSE 66; RESP 18; TEMP 98.5; O2SAT 95
[2017-12-07] MEDS: SODIUM CHLOR 0.9% 1000 ML INJ 1,000 ML IV SCH (05:14)
[2017-12-07] MEDS: LEVOTHYROXINE SODIUM 88 MCG TAB PO SCH (05:14)
[2017-12-07 07:31] VITALS: BP 192/84; PULSE 66; RESP 19; TEMP 98.1; O2SAT 92
[2017-12-07 08:14] LABS: AUTOMATED NEUTROPHIL # 3.1 TH/MM3 (1.8-7.7); BASOPHIL % 0.6 % (0.0-2.0); EOSINOPHIL # 0.1 TH/MM3 (0-0.4); EOSINOPHIL % 1.1 % (0.0-4.0); HEMATOCRIT 31.9 % (39.0-51.0); HEMOGLOBIN 10.9 GM/DL (13.0-17.0); LYMPH % 22.7 % (9.0-44.0); LYMPHOCYTE # 1.1 TH/MM3 (1.0-4.8); MEAN CELL VOLUME 103.6 FL (80.0-100.0); MEAN CORPUSCULAR HEMOGLOBIN 35.3 PG (27.0-34.0); MEAN CORPUSCULAR HGB CONC 34.1 % (32.0-36.0); MONO % 11.4 % (0.0-8.0); MONOCYTE # 0.6 TH/MM3 (0-0.9); NEUT % 64.2 % (16.0-70.0); PLATELET COUNT 228 TH/MM3 (150-450); RED BLOOD COUNT 3.08 MIL/MM3 (4.50-5.90); RED CELL DISTRIBUTION WIDTH 13.8 % (11.6-17.2); WHITE BLOOD COUNT 4.9 TH/MM3 (4.0-11.0)
--- NOTE | 2017-12-07 08:27 | HHI.PR ---
Subjective Remarks Pt did not sleep well last night He states that he did eat and drink without any issues last night. He has not been out of bed Pt reports that in the last 5-6 weeks he has not been ambulating much at all due to worsening neuropathy in his feet. He states that he typically can stand with his walker but does not walk much at all. He uses a wheelchair around the house or outside the house. Objective Vitals Vital Signs Date Time Temp Pulse Resp B/P (MAP) Pulse Ox O2 Delivery O2 Flow Rate FiO2 12/07/17 07:31 98.1 66 19 192/84 (120) 92 12/07/17 03:22 98.5 66 18 179/82 (114) 95 12/06/17 23:52 98.5 73 18 159/73 (101) 95 12/06/17 23:35 68 12/06/17 19:13 99.6 85 16 149/72 (97) 92 12/06/17 17:16 69 12/06/17 16:25 97.9 68 20 142/60 (87) 96 131/80 (97) 12/06/17 15:13 12/06/17 12:44 70 22 120/69 (86) 71 122/67 (85) 12/06/17 11:35 94 Room Air 12/06/17 11:29 98.2 74 24 127/70 (89) 94 Result Diagram: 12/07/17 0700 12/06/17 1146 Other Results Laboratory Tests Test 12/06/17 11:46 12/06/17 13:21 12/06/17 17:25 12/07/17 07:00 White Blood Count 6.3 TH/MM3 4.9 TH/MM3 Red Blood Count 3.22 MIL/MM3 3.08 MIL/MM3 Hemoglobin 11.2 GM/DL 10.9 GM/DL Hematocrit 33.1 % 31.9 % Mean Corpuscular Volume 102.8 FL 103.6 FL Mean Corpuscular Hemoglobin 34.8 PG 35.3 PG Mean Corpuscular Hemoglobin Concent 33.9 % 34.1 % Red Cell Distribution Width 13.8 % 13.8 % Platelet Count 244 TH/MM3 228 TH/MM3 Mean Platelet Volume 7.8 FL 8.0 FL Neutrophils (%) (Auto) 77.7 % 64.2 % Lymphocytes (%) (Auto) 12.8 % 22.7 % Monocytes (%) (Auto) 7.9 % 11.4 % Eosinophils (%) (Auto) 0.9 % 1.1 % Basophils (%) (Auto) 0.7 % 0.6 % Neutrophils # (Auto) 4.9 TH/MM3 3.1 TH/MM3 Lymphocytes # (Auto) 0.8 TH/MM3 1.1 TH/MM3 Monocytes # (Auto) 0.5 TH/MM3 0.6 TH/MM3 Eosinophils # (Auto) 0.1 TH/MM3 0.1 TH/MM3 Basophils # (Auto) 0.0 TH/MM3 0.0 TH/MM3 CBC Comment DIFF FINAL DIFF FINAL Differential Comment Prothrombin Time 11.4 SEC Prothromb Time International Ratio 1.1 RATIO Activated Partial Thromboplast Time 22.6 SEC Blood Urea Nitrogen 11 MG/DL Creatinine 1.48 MG/DL Random Glucose 142 MG/DL Total Protein 8.8 GM/DL Albumin 2.3 GM/DL Calcium Level 7.9 MG/DL Magnesium Level 2.1 MG/DL Alkaline Phosphatase 48 U/L Aspartate Amino Transf (AST/SGOT) 35 U/L Alanine Aminotransferase (ALT/SGPT) 20 U/L Total Bilirubin 0.3 MG/DL Sodium Level 140 MEQ/L Potassium Level 4.0 MEQ/L Chloride Level 105 MEQ/L Carbon Dioxide Level 24.2 MEQ/L Anion Gap 11 MEQ/L Estimat Glomerular Filtration Rate 45 ML/MIN Total Creatine Kinase 194 U/L 181 U/L Creatine Kinase MB 1.1 NG/ML 1.2 NG/ML Troponin I LESS THAN 0.02 NG/ML LESS THAN 0.02 NG/ML Lipase 73 U/L Free Thyroxine 1.07 NG/DL Free Triiodothyronine (T3) pg/dL 1.17 PG/ML Thyroid Stimulating Hormone 3rd Gen 20.400 uIU/ML Urine Color YELLOW Urine Turbidity CLEAR Urine pH 6.5 Urine Specific [place] 1.006 Urine Protein NEG mg/dL Urine Glucose (UA) NEG mg/dL Urine Ketones NEG mg/dL Urine Occult Blood NEG Urine Nitrite NEG Urine Bilirubin NEG Urine Urobilinogen LESS THAN 2.0 MG/DL Urine Leukocyte Esterase NEG Urine RBC LESS THAN 1 /hpf Urine WBC 1 /hpf Urine Squamous Epithelial Cells <1 /hpf Urine Hyaline Casts 2 /lpf Urine Mucus FEW /lpf Microscopic Urinalysis Comment CULT NOT INDICATED Imaging Last Impressions Head CT 12/06/17 1133 Signed Impressions: CONCLUSION: 1. 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 Significant mass effect or hemorr estefania is not seen. These findings were present on the prior exam. 2. Mild atrophy. 3. Increased density seen throughout the right globe. This was present previou sly. Chest X-Ray 12/06/17 1133 Addendum Impressions: CONCLUSION: Minimal parental changes left base Moderate compensated cardiomegaly. Carotid Artery Ultrasound 12/06/17 0000 Signed Impressions: CONCLUSION: 1. Right Internal Carotid Artery: Mild plaque with no significant stenosis. 2. Left Internal Carotid Artery: Mild plaque with no significant stenosis. 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 - Pt was brought to the ED on 12/06/17 after a syncopal episode at home. This occurred this morning while he was on the commode and was found down unresponsive in the bathroom by the [facility] Nurse and EVAC was called. - Pts repeat labs in the ED today noted some evidence of dehydration with Cr 1.48, BUN 11, GFR 45. First set of CE are negative. - His TSH was significantly elevated at 20.400 and he denies any changes to his thyroid meds and has been taking his Synthroid daily. - Pts vital signs have been stable in the ED, no evidence of bradycardia. - Head CT (12/06) ---> low-density the right basal ganglia and extending into the right periventricular white matter likely from prior infarct, no significant mass effect or hemorrhage seen, these findings were present on the prior exam, mild atrophy, and increased density seen throughout the right globe which was present previously. - Etiology for the syncope is unclear, could be vasovagal syncope possibly related to dehydration vs. orthostatic hypotension vs. cardiac dysrhythmia vs. seizure vs. autonomic dysfunction vs. other - CE are negative. - Telemetry without any arrhythmias noted - Holter Monitor is pending. - Carotid US with mild plaquing bilaterally - EEG is pending - Check orthostatic vital signs to be checked today - PT evaluation today - Supportive care - DVT prophylaxis with SCDs Acute on chronic kidney disease, likely related to dehydration from recent gastroenteritis - Give IVF - Awaiting repeat labs today HTN - Cont. home meds for now - Monitor Hypothyroidism - TSH at admission was over 20 and review of outpt labs with TSH of 2 in september 2017 - Free T4 was 1.07 - Resume home dose of Synthroid for now - Recheck TSH/Free T4 as an outpt. Hyperlipidemia - Cont. home meds Peripheral Neuropathy - Cont. home dose of Gabapentin (2) Hypertension ICD Codes: I10 - Hypertension Status: Chronic (3) Hyperlipidemia ICD Codes: E78.5 - Hyperlipidemia Status: Chronic (4) Hypothyroidism ICD Codes: E03.9 - Hypothyroidism, unspecified Status: Chronic (5) Peripheral neuropathy ICD Codes: G62.9 - Peripheral neuropathy Status: Acute Problem Qualifiers (1) Syncope: Qualified Codes: R55 - Syncope and collapse Mimi Ruff Dec 07, 2017 08:27
[2017-12-07 08:43] LABS: BICARBONATE 22.6 MEQ/L (21.0-32.0); CREATININE 1.09 MG/DL (0.60-1.30); MAGNESIUM 2.1 MG/DL (1.5-2.5)
[2017-12-07] MEDS ORDERED: GABAPENTIN 300 MG CAP PO SCH (09:00)
[2017-12-07] MEDS ORDERED: LISINOPRIL 5 MG TAB PO SCH (09:00)
[2017-12-07] MEDS ORDERED: ATROPINE SULFATE 1% OPHT SOLN 2 ML BTL RIGHT EYE SCH (09:00)
[2017-12-07] MEDS ORDERED: DOCUSATE SODIUM 50 MG/SENNA 8.6 MG TAB PO SCH (09:00)
[2017-12-07] MEDS ORDERED: PRAVASTATIN SOD 80 MG TAB PO SCH (09:00)
[2017-12-07] MEDS ORDERED: DORZOLAMIDE 2% OPTH SOLN 200 DROP/10 ML BTLO RIGHT EYE SCH (09:00)
[2017-12-07] MEDS ORDERED: PANTOPRAZOLE SOD 40 MG DELAYED RELEASE TAB PO SCH (09:00)
[2017-12-07] MEDS ORDERED: ENALAPRILAT 1.25 MG/ML VIAL IV PUSH PRN (11:15)
[2017-12-07] MEDS ORDERED: cloNIDine HCL 0.1 MG TAB PO PRN (11:15)
[2017-12-07 11:33] VITALS: BP 148/72; PULSE 76; RESP 18; TEMP 97.7; O2SAT 94
--- NOTE | 2017-12-07 13:58 | HHI.DCPOC ---
Discharge Care Plan Diagnosis: (1) Syncope (2) Peripheral neuropathy (3) Hypertension (4) Hypothyroidism Goals to Promote Your Health * To prevent worsening of your condition and complications * To maintain your health at the optimal level Directions to Meet Your Goals Take your medications as prescribed Follow your dietary instruction Follow activity as directed Keep your appointments as scheduled Take your immunizations and boosters as scheduled If your symptoms worsen call your PCP, if no PCP go to Urgent Care Center or Emergency Room Smoking is Dangerous to Your Health. Avoid second hand smoke Call the 24-hour hour crisis hotline for domestic abuse at Be Tierney MD Dec 07, 2017 13:58
--- NOTE | 2017-12-07 14:02 | EKG ---
Date Performed: 12/06/2017 Time Performed: 11:29:11 PTAGE: 82 years EKG: Sinus rhythm WITH FIRST DEGREE AV BLOCK MODERATE INTRAVENTRICULAR CONDUCTION DELAY MINIMAL ST DEPRESSION ABNORMAL ECG PREVIOUS TRACING : 11/30/2017 07.07 Since previous tracing, sinus arrhythmia no longer present. DOCTOR: Be Szymanski Interpretating Date/Time 12/07/2017 14:01:03
--- NOTE | 2017-12-07 14:17 | MG ---
cc: Jane Hurtado MD EEG NUMBER: [id number] REFERRING PHYSICIAN: ____ ROOM: [facility]. INDICATION: Awake, drowsy, asleep. Photic only. 08/28/2017 was his last EEG that was basically unremarkable, normal. CT shows right basal ganglia low density. An 82-year-old man with syncope while using the bathroom. On Neurontin, lisinopril, Protonix, Pravachol, and others. DESCRIPTION OF RECORD: There is overall 7-8 Hz background noted. EKG looks sinus. The patient tends to fall asleep, there is more attenuation and more muscle artifact. Overall fairly well organized EEG. May be overall some mild slowing. Photic stimulation with a mild driving response. IMPRESSION: Mild slowing to normal activity noted without any epileptiform features. There may be a mild encephalopathic process, but may be due to the patient being somnolent. No epileptiform features. Clinical correlation. Jane Hurtado MD DF/LUIS , 12:27 PM , 02:16 PM
[2017-12-07 15:47] VITALS: BP 113/61; PULSE 87; RESP 18; TEMP 97.7; O2SAT 95
[2017-12-08] MEDS ORDERED: LEVOTHYROXINE SODIUM 88 MCG TAB PO SCH (06:00)
--- NOTE | 2017-12-08 18:01 | HM ---
Date Performed: 12/06/2017 Time Performed: 15:59:00 HOOKUP DATE: 12/06/17 03:59:00 PM Fri ANALYSIS START TIME: 12/06/2017 4:04:00 PM ANALYSIS END TIME: 12/07/2017 4:08:00 PM PATIENT AGE: 82 PATIENT HEIGHT PATIENT WEIGHT DRUG LIST PATIENT DIAGNOSIS: EVAC TEST NARRATIVE: The patient's average heart rate was 76 BPM. No episodes of tachycardia wer e noted. No episodes of bradycardia were noted. 6 pauses exceeding 2.0 seconds were noted. The longest pause of 2.1 seconds occurred at 12:30:58 AM Sat. 3122 ventricular ectopics, which repres ented 3% of the total beat count, were noted. The highest ventricular ectopic frequency occurred fro m 01:00 PM to 02:00 PM Sat. During this time 358 VE(s) occurred. Ventricular ectopics were observed as 2982 isolated beat(s), as 62 couplet(s) and as 5 run(s). Some of the ventricular beats occurred in bigeminal cycles. 7792 supraventricular ectopics, which represented 7% of the total beat count , were noted. The highest supraventricular ectopic frequency occurred from 07:00 AM to 08:00 AM Sat. During this time 1291 SVE(s) occurred. No episodes of ST depression (defined as -1.0 mm or more ) were noted in channel 1. No episodes of ST depression (defined as -1.0 mm or more) were noted in c hannel 2. No episodes of ST depression (defined as -1.0 mm or more) were noted in channel 3. TEST INTERPRETATION: 24-hour holter is recorded. Agree with the narrative. Patient has overall f airly frequent atrial and ventricular ectopy. Patient also has sinus arrhythmia and generally has fir st degree AV block with NH interval between .24 and .26. There are 6 episodes of sinoatrial block wit h blocks generally between 2.0 and 2.1 seconds. Sinus rhythm then resumes. No more prolonged AV block is seen, but this is clearly due to some kind of sinoatrial abnormality with no P waves seen during the pause. No atrial fibrillation is seen. No other complex atrial arrhythmias are present. There are rare couplets of PVCs and 5 runs of 3-4 beats of PVCs usual ly at a HR of 130-138. No V-Tach is seen. Overall this patient has moderate complexity of ventricular arrhythmia and some frequent PACs and sinus arrhythmia with first degree AV block and some sinoatria l default with 6 episodes of pauses between 2.0 and 2.1 seconds. No patient diary is included. Clinic al correlation is recommended. Sig edwige by : Be Szymanski
== END 2017-12-07 19:44 | disposition home or self-care (01) ==
LOC: NEPE 11:19 → NEDA 14:14 → NEPHCDU 15:25
PROVIDERS: ADMIT Hospitalist; ATTEND Hospitalist
DX: R55 Syncope and collapse (principal); I25.10 Atherosclerotic heart disease of native coronary artery without angina pectoris; I12.9 Hypertensive chronic kidney disease with stage 1 through stage 4 chronic kidney disease, or unspecified chronic kidney disease; N18.2 Chronic kidney disease, stage 2 (mild); E03.9 Hypothyroidism, unspecified; E86.0 Dehydration; E78.5 Hyperlipidemia, unspecified; G62.9 Polyneuropathy, unspecified; I51.7 Cardiomegaly; I44.0 Atrioventricular block, first degree; R94.31 Abnormal electrocardiogram [ECG] [EKG]; J84.112 Idiopathic pulmonary fibrosis; G37.9 Demyelinating disease of central nervous system, unspecified; H35.30 Unspecified macular degeneration; H40.9 Unspecified glaucoma; N40.0 Benign prostatic hyperplasia without lower urinary tract symptoms; M19.90 Unspecified osteoarthritis, unspecified site; Z79.899 Other long term (current) drug therapy; Z86.73 Personal history of transient ischemic attack (TIA), and cerebral infarction without residual deficits; Z87.891 Personal history of nicotine dependence; Z96.653 Presence of artificial knee joint, bilateral
CPT/HCPCS: 70450; 71045; 80048; 80053; 81001; 82550; 82552; 82607; 83690; 83735; 84439; 84443; 84481; 84484; 85025; 85610; 85730; 93005; 93225; 93226; 93880; 95819; 96360; 96361; 97163; 99285; G0378; G8987; G8988; J7030; J7040

== ENCOUNTER 2018-04-07 11:39 | Inpatient (IN) ==
[2018-04-07] MEDS ORDERED: Sod Chloride 0.9% Inj 1,000 ML IV.SIG ONE (11:57)
--- NOTE | 2018-04-07 12:35 | ED ---
HPI General Chief Complaint: Syncope Stated Complaint: Syncope Time Seen by Provider: 04/07/18 11:42 Source: patient and family Mode of arrival: EMS Limitations: altered mental status History of Present Illness HPI narrative: Patient is a 82-year-old male that presents for the evaluation of altered mental status. The patient was brought in by EMS after he was found to not be responding to [facility] staff and family members. According to EMS the patient was sitting unresponsive in his wheel chair. Per EMS report the patient was last seen normal at 10am this morning and he was in an altered state for 15 minutes where he was not responding to questions or commands. Upon presentation to the ED the patient is alert and oriented to person and place. Patient is able to answer questions but the history is difficult to elicit from the patient. He currently denies any pain. He does appear altered which per family is not usual for him, per who pre-much see some animals every day patient does appear to be more altered than his usual and appears to be asking more questions that he usually does. He normally per does answer questions. Does have a history of dehydration in the past. Per family he did not fall. No blood thinner use. Patient does state that he has been having some cough and congestion for about 3-4 weeks now. Patient is from an [facility] Related Data Home Medications Medication Instructions Recorded Confirmed dorzolamide 1 drp OPHTHALMIC (EYE) TID 04/07/18 04/07/18 gabapentin [Neurontin] 300 mg PO HS 04/07/18 04/07/18 levothyroxine 125 mcg PO DAILY 04/07/18 04/07/18 lisinopril 5 mg PO DAILY 04/07/18 04/07/18 mtftisno-pdlv-VA-calcium-mins 1 tab PO DAILY 04/07/18 04/07/18 [Thera M Plus (ferrous fumarat)] pantoprazole [Protonix] 40 mg PO DAILY 04/07/18 04/07/18 pravastatin 80 mg PO DAILY 04/07/18 04/07/18 quetiapine [Seroquel] 25 mg PO BID 04/07/18 04/07/18 ranitidine HCl [Zantac] 150 mg PO DAILY 04/07/18 04/07/18 Allergies Allergy/AdvReac Type Severity Reaction Status Date / Time Sulfa (Sulfonamide Allergy Severe Hives Verified 04/07/18 13:28 Antibiotics) Review of Systems ROS: all other systems reviewed are negative [facility] Medical History Medical History Abdominal hernia (Acute) Arthritis (Acute) BPH (benign prostatic hyperplasia) (Acute) Back pain (Acute) CAD (coronary artery disease) (Acute) COPD (chronic obstructive pulmonary disease) (Acute) GERD (gastroesophageal reflux disease) (Acute) Glaucoma (Acute) Hypertension (Acute) Legal blindness (Acute) Metal plates in right arm (Acute) Polyneuropathy (Acute) Pulmonary fibrosis (Acute) 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 within the Last 8 Weeks: No Recent Out of Country Travel within the Last 8 Weeks: No Immunization History Tetanus Immunization: Unsure Hx Influenza Vaccine This Season: No Exam Narrative Exam Narrative: GENERAL: Well appearing SKIN: Focused skin assessment warm/dry. HEAD: Atraumatic. Normocephalic. EYES: Pupils equal and round. No scleral icterus. No injection or drainage. ENT: No nasal bleeding or discharge. Mucous membranes pink and moist. Tongue is midline. No uvula deviation. NECK: Trachea midline. No JVD. CARDIOVASCULAR: Regular rate and rhythm. No murmur appreciated. RESPIRATORY: No accessory muscle use. Clear to auscultation. Breath sounds equal bilaterally. GASTROINTESTINAL: Abdomen soft, non-tender, nondistended. Hepatic and splenic margins not palpable. MUSCULOSKELETAL: No obvious deformities. No clubbing. No cyanosis. No edema. Full range of motion of the upper and lower extremities bilaterally. 2+ pulses bilaterally. NEUROLOGICAL: Awake and alert and oriented to person and place but not to time. No obvious cranial nerve deficits. Motor grossly within normal limits. Normal speech. PSYCHIATRIC: Appropriate mood and affect; insight and judgment normal. Course Initial Documented Vital Signs Temperature 98.2 F 04/07/18 11:50 Pulse Rate 95 H 04/07/18 11:50 Respiratory Rate 24 04/07/18 11:50 Blood Pressure 99/56 L 04/07/18 11:50 Pulse Oximetry 94 L 04/07/18 11:50 Last Documented Vital Signs Temperature 97.8 F 04/07/18 14:29 Pulse Rate 78 04/07/18 14:29 Respiratory Rate 16 04/07/18 14:29 Blood Pressure 111/60 04/07/18 14:29 Pulse Oximetry 98 04/07/18 14:29 Medical Decision Making ALEXIA Attestation ALEXIA supervised visit: Yes Attestation: I, Dr. Mcintosh, have reviewed the advance practice practitioner's documentation and am in agreement, met with the patient face to face, made the diagnosis, and the medical decision making was done by me. *My assessment and Findings: Patient seen and evaluated with PA, please see PAs note for further details. Patient is here because of syncope and altered mental status from the [place] [facility]. He admits he has had 2 weeks history of coughing, and chest x-ray shows right-sided infiltrates concerning for pneumonia. IV antibiotics were initiated in the ER. Planning to admit for further treatment. MDM Narrative Medical decision making narrative: 82-year-old male the presents to the ED for evaluation of syncope and altered mental status. Patient was properly examined and was found to have signs and symptoms of unclear etiology at this time. He does appear to be altered on exam. He does have a history of confusion chronically but appears to be more significant now. Labs and imaging were ordered. Per patient's medical records he does have a history of AAA. Family and patient do not know this. I was able to review the CT scans that he had before and he had a CT scan at the beginning of this year to did show a mildly dilated aneurysm on his aorta in the abdominal area. Because of this as the patient is hypotensive and altered at the recommend CTA to rule out dissection or worsening aneurysm. Patient was given IV fluids. Labs and imaging showed what appears to be acute kidney injury patient does not appear to be very significant as well as what appears to be pneumonia. Patient was started on azithromycin and ceftriaxone. Patient still somewhat altered. Patient was initially hypotensive as and after little fluid on his in the 100s. The recommend admission for further evaluation as patient is symptomatic and has a pneumonia which likely will require IV antibiotics. CT did show an aneurysm but does not appear to be actively bleeding. Patient also was found to have per CAT scan report possible hematoma on the right side of the buttocks. On my physical exam evaluation of the not see any obvious sign of hematoma or bruising. Case discussed with Dr. Randhawa who agrees to admission to his service. Case was discussed with my attending as well as the patient who will agree with plan. My attending herself evaluate the patient and agrees with this. Medical Screen Exam Complete: Yes Emergency Medical Condition: Yes Differential Diagnosis Differential Diagnosis: Syncope versus altered mental status versus ACS versus aneurysm versus dehydration versus kidney failure Medical Records Medical records reviewed: Yes I reviewed the patient's medical records. Lab Data Lab results reviewed: Yes I reviewed the patient's lab results. Lab results narrative: Troponin negative, UA negative for acute disease. Result diagrams: 04/07/18 12:15 04/07/18 12:15 Lab Results 04/07/18 04/07/18 04/07/18 Range/Units 12:15 12:15 12:15 PT (9.8-11.6) sec INR Ratio APTT (24.3-30.1) sec Sodium 137 (136-145) meq/L Potassium 4.0 (3.5-5.1) meq/L Chloride 103 (98-107) meq/L Carbon Dioxide 24.6 (21.0-32.0) meq/L Anion Gap 9 (5-15) meq/L BUN 19 H (7-18) mg/dL Creatinine 1.85 H (0.60-1.30) mg/dL Estimated GFR 35 L (>89) mL/min POC Glucose (68-110) mg/dl Random Glucose 101 (74-106) mg/dL Lactic Acid 2.6 H (0.4-2.0) mmol/L Calcium 9.1 (8.5-10.1) mg/dL Magnesium 1.7 (1.5-2.5) mg/dL Total Bilirubin 0.3 (0.2-1.0) mg/dL AST 38 H (15-37) U/L ALT 30 (12-78) U/L Alkaline Phosphatase 78 (45-117) U/L Troponin I Less than 0.02 L (0.02-0.05) ng/mL B-Natriuretic Peptide 32 (0-100) pg/mL Total Protein 10.6 H (6.4-8.2) g/dL Albumin 1.7 L (3.4-5.0) g/dL TSH (0.358-3.740) uIU/mL Urine Color (Yellw/Straw) Urine Clarity (Clear) Urine pH (5.0-8.5) Ur Specific Mitchell (1.002-1.035) Urine Protein (Neg-Trace) mg/dL Urine Glucose (UA) (Negative) mg/dL Urine Ketones (Negative) mg/dL Urine Occult Blood (Negative) Urine Nitrate (Negative) Urine Bilirubin (Negative) Urine Urobilinogen (Less than 2) mg/dL Ur Leukocyte Esterase (Negative) Urine RBC (0-3) /hpf Urine WBC (0-5) /hpf Urine Mucus (Occasional) /lpf Micro UA Comment Ur Microscopic Review Urine Culture Comments Blood Type Blood Type Recheck Antibody Screen 04/07/18 04/07/18 04/07/18 Range/Units 12:15 12:15 12:20 PT (9.8-11.6) sec INR Ratio APTT (24.3-30.1) sec Sodium (136-145) meq/L Potassium (3.5-5.1) meq/L Chloride (98-107) meq/L Carbon Dioxide (21.0-32.0) meq/L Anion Gap (5-15) meq/L BUN (7-18) mg/dL Creatinine (0.60-1.30) mg/dL Estimated GFR (>89) mL/min POC Glucose 110 (68-110) mg/dl Random Glucose (74-106) mg/dL Lactic Acid (0.4-2.0) mmol/L Calcium (8.5-10.1) mg/dL Magnesium (1.5-2.5) mg/dL Total Bilirubin (0.2-1.0) mg/dL AST (15-37) U/L ALT (12-78) U/L Alkaline Phosphatase (45-117) U/L Troponin I (0.02-0.05) ng/mL B-Natriuretic Peptide (0-100) pg/mL Total Protein (6.4-8.2) g/dL Albumin (3.4-5.0) g/dL TSH 0.450 (0.358-3.740) uIU/mL Urine Color (Yellw/Straw) Urine Clarity (Clear) Urine pH (5.0-8.5) Ur Specific Mitchell (1.002-1.035) Urine Protein (Neg-Trace) mg/dL Urine Glucose (UA) (Negative) mg/dL Urine Ketones (Negative) mg/dL Urine Occult Blood (Negative) Urine Nitrate (Negative) Urine Bilirubin (Negative) Urine Urobilinogen (Less than 2) mg/dL Ur Leukocyte Esterase (Negative) Urine RBC (0-3) /hpf Urine WBC (0-5) /hpf Urine Mucus (Occasional) /lpf Micro UA Comment Ur Microscopic Review Urine Culture Comments Blood Type O Positive Blood Type Recheck Required Antibody Screen Negative 04/07/18 04/07/18 Range/Units 13:08 13:08 PT 12.2 H (9.8-11.6) sec INR 1.2 Ratio APTT 25.9 (24.3-30.1) sec Sodium (136-145) meq/L Potassium (3.5-5.1) meq/L Chloride (98-107) meq/L Carbon Dioxide (21.0-32.0) meq/L Anion Gap (5-15) meq/L BUN (7-18) mg/dL Creatinine (0.60-1.30) mg/dL Estimated GFR (>89) mL/min POC Glucose (68-110) mg/dl Random Glucose (74-106) mg/dL Lactic Acid (0.4-2.0) mmol/L Calcium (8.5-10.1) mg/dL Magnesium (1.5-2.5) mg/dL Total Bilirubin (0.2-1.0) mg/dL AST (15-37) U/L ALT (12-78) U/L Alkaline Phosphatase (45-117) U/L Troponin I (0.02-0.05) ng/mL B-Natriuretic Peptide (0-100) pg/mL Total Protein (6.4-8.2) g/dL Albumin (3.4-5.0) g/dL TSH (0.358-3.740) uIU/mL Urine Color Yellow (Yellw/Straw) Urine Clarity Clear (Clear) Urine pH 6.0 (5.0-8.5) Ur Specific Mitchell 1.013 (1.002-1.035) Urine Protein Negative (Neg-Trace) mg/dL Urine Glucose (UA) Negative (Negative) mg/dL Urine Ketones Negative (Negative) mg/dL Urine Occult Blood Negative (Negative) Urine Nitrate Negative (Negative) Urine Bilirubin Negative (Negative) Urine Urobilinogen 2.0 H (Less than 2) mg/dL Ur Leukocyte Esterase Negative (Negative) Urine RBC Less than 1 (0-3) /hpf Urine WBC Less than 1 (0-5) /hpf Urine Mucus Few H (Occasional) /lpf Micro UA Comment Culture not ind Ur Microscopic Review Not Reportable Urine Culture Comments Culture not ind Blood Type Blood Type Recheck Antibody Screen Imaging Data Attestation: I personally reviewed and interpreted this imaging study as follows : Radiologist's impression: Chest X-Ray 04/07/18 11:57 CONCLUSION: 1. Bibasilar patchiness consistent with atelectasis and/or infiltrates. 2. Cardiomegaly. Head CT 04/07/18 11:57 CONCLUSION: 1. Mild cerebral atrophy. 2. Stable periventricular and subcortical white matter small vessel ischemic changes bilaterally. 3. Scattered old lacunar infarcts within the bilateral basal ganglia. 4. No acute infarct, acute hemorrhage, midline shift or extra-axial fluid collections. . Abdomen/Pelvis CT 04/07/18 13:53 CONCLUSION: 1. Bibasilar patchiness consistent with atelectasis and/or pneumonia. 2. Soft tissue density within the right buttock inferior to the right ischium measuring 6.4 cmconsistent with possible hematoma. Clinical correlation is recommended. 3. Uncomplicated colonic diverticulosis. 4. Stable bilateral adrenal nodules consistent with probable adenomas. 5. Infrarenal abdominal aortic aneurysm measuring 3.5 x 3.6 cm. 6. Enlarged prostate. 7. Degenerative changes and scoliosis of the thoracolumbar spine. 8. Bilateral renal cysts. ECG Data Attestation: I personally reviewed and interpreted this ECG as follows: Interpretation: EKG shows sinus rhythm with no sign of acute ischemia or arrhythmia read by me and attending. GA interval of 89 bpm, GA interval of [address] elevations noted. Discharge Plan Discharge Disposition Patient Disposition: 30 Still Patient Discharge Condition Condition: Stable Discharge Details Anticipated Discharge Date: 04/07/18 Diagnosis: Pneumonia, Dehydration, Lactic acidosis Physicians Team ED Provider: Kris Mcintosh ED Midlevel Provider: Jesus Yao Primary Care Provider: UNKNOWN, Rxs /Orders / Referrals /Forms Prescriptions: No Action pravastatin 80 mg Tablet 80 mg PO DAILY RF: 0 ranitidine HCl [Zantac] 150 mg Tablet 150 mg PO DAILY RF: 0 gabapentin [Neurontin] 300 mg Capsule 300 mg PO HS RF: 0 dorzolamide 2 % Drops 1 drp OPHTHALMIC (EYE) TID RF: 0 mmpilsbe-mbsr-YU-calcium-mins [Thera M Plus (ferrous fumarat)] 9 mg iron-400 mcg Tablet 1 tab PO DAILY RF: 0 quetiapine [Seroquel] 25 mg Tablet 25 mg PO BID RF: 0 pantoprazole [Protonix] 40 mg Tablet,Delayed Release (Dr/Ec) 40 mg PO DAILY RF: 0 lisinopril 5 mg Tablet 5 mg PO DAILY RF: 0 levothyroxine 125 mcg Capsule 125 mcg PO DAILY RF: 0 Status ED Status: With Doctor
[2018-04-07 12:55] LABS: Alanine Aminotransferase 30 U/L (12-78)
[2018-04-07 12:56] LABS: Alkaline Phosphatase 78 U/L (45-117); Total Protein 10.6 g/dL (6.4-8.2)
--- NOTE | 2018-04-07 12:59 | XR ---
EXAM DATE: 04/07/2018 11:57 AM EDT AGE/SEX: 82 years / Male INDICATIONS: Cough. CLINICAL DATA: This is the patient's initial encounter. Patient reports that signs and symptoms have been present for 1 day and indicates a pain score of 0/10. MEDICAL/SURGICAL HISTORY: . Hypothyroidism. Hypercholesterolemia. Hypertension. Arthritis. Anil ateral inguinal hernia. Stage two chronic kidney disease. Enlarged prostate. Peripheral neuropathy. A ppendectomy. Left shoulder. Right elbow. Inguinal repair. . COMPARISON: [facility] [place], CHEST SINGLE AP, 12/06/2017. . FINDINGS: Bibasilar patchiness is noted consistent with atelectasis and/or infiltrates. The heart is enlarged b ut stable. CONCLUSION: 1. Bibasilar patchiness consistent with atelectasis and/or infiltrates. 2. Cardiomegaly. Electronically signed by: Richy Bentley MD 04/07/2018 12:58 PM EDT
[2018-04-07 13:14] LABS: Albumin 1.7 g/dL (3.4-5.0); Anion Gap 9 meq/L (5-15); Aspartate Aminotransferase 38 U/L (15-37); Blood Urea Nitrogen 19 mg/dL (7-18); Calcium 9.1 mg/dL (8.5-10.1); Carbon Dioxide 24.6 meq/L (21.0-32.0); Chloride 103 meq/L (98-107); Glomerular Filtration Rate 35 mL/min (>89); Glucose,Random 101 mg/dL (74-106); Magnesium 1.7 mg/dL (1.5-2.5); Sodium 137 meq/L (136-145)
[2018-04-07] MEDS ORDERED: Azithromycin Inj 500 MG in Sodium Chlor 0.9% Inj 250 ML IV.SIG ONE (13:14)
[2018-04-07 14:01] LABS: Activated Partial Thrombo Time 25.9 sec (24.3-30.1); INR 1.2 Ratio; Prothrombin Time 12.2 sec (9.8-11.6)
[2018-04-07 14:05] LABS: Bilirubin,Urine Negative (Negative); Clarity,Urine Clear (Clear); Color,Urine Yellow (Yellw/Straw); Glucose,Urine (UA) Negative (Negative); Leukocyte Esterase,Urine Negative (Negative); Mucus,Urine Few /lpf (Occasional); Nitrite,Urine Negative (Negative); Specific Gravity,Urine 1.013 (1.002-1.035)
--- NOTE | 2018-04-07 14:17 | CT ---
EXAM DATE: 04/07/2018 12:10 PM EDT AGE/SEX: 82 years / Male INDICATIONS: Altered mental status, unresponsive. CLINICAL DATA: This is the patient's initial encounter. Patient reports that signs and symptoms have been present for 1 day and indicates a pain score of Nonresponsive. MEDICAL/SURGICAL HISTORY: Cardiovascular disease. Chronic obstructive pulmonary disease. Hyperten piper. None. RADIATION DOSE: 45.25 CTDI (mGy) COMPARISON: [facility], CT BRAIN W/O CONTRAST, 12/06/2017. [facility], CT BRAIN W/O CONTRAST, 05/28/2017. . TECHNIQUE: CT of the head without contrast. Using automated exposure control and adjustment of the mA and/or kV according to patient size, radiation dose was kept as low as reasonably achievable to ob tain optimal diagnostic quality images. DICOM format image data is available electronically for revi ew and comparison. FINDINGS: Cerebrum: Mild atrophy is again noted. Scattered periventricular and subcortical white matter small vessel ischemic changes are noted and are stable. Scattered old lacunar infarcts are also noted withi n the bilateral basal ganglia. No evidence of midline shift, mass lesion, hemorrhage or acute infarct ion. No extraaxial fluid collections are seen. Posterior Fossa: The cerebellum and brainstem are intact. The 4th ventricle is midline. The cerebe llopontine angle is unremarkable. Extracranial: The visualized portion of the orbits is intact. Small fluid level is noted within the left maxillary sinus. Skull: The calvaria is intact. No evidence of skull fracture. CONCLUSION: 1. Mild cerebral atrophy. 2. Stable periventricular and subcortical white matter small vessel ischemic changes bilaterally. 3. Scattered old lacunar infarcts within the bilateral basal ganglia. 4. No acute infarct, acute hemorrhage, midline shift or extra-axial fluid collections. . Electronically signed by: Richy Bentley MD 04/07/2018 2:16 PM EDT
--- NOTE | 2018-04-07 14:43 | CT ---
EXAM DATE: 04/07/2018 1:55 PM EDT AGE/SEX: 82 years / Male INDICATIONS: Found unresponsive CLINICAL DATA: This is the patient's initial encounter. Patient reports that signs and symptoms have been present for 1 day and indicates a pain score of Nonresponsive. MEDICAL/SURGICAL HISTORY: Hypertension. Gastroesophageal reflux disease. Chronic obstructive pulmonary disease. . Hernia repair RADIATION DOSE: 14.27 CTDI (mGy) COMPARISON: [facility] [place], CT ABDOMEN & PELVIS W CONTRAST, 11/30/2017. [facility], CT ABDOMEN W/O CONTRAST, 2015. . TECHNIQUE: Multiple contiguous axial images were obtained through the abdomen. Images were obtained using multiple row detector helical technique. Using automated exposure control and adjustment of the mA and/or kV according to patient size, radiation dose was kept as low as reasonably achievable to o btain optimal diagnostic quality images. DICOM format image data is available electronically for rev iew and comparison. FINDINGS: Lower Lungs: Bibasilar patchiness is noted consistent with atelectasis and/or pneumonia. Liver: There is a 9 mm cyst within the right lobe of the liver which is stable. There is no dilation of the biliary tree. Spleen: Homogeneous density without enlargement. Pancreas: Unremarkable without mass or calcification. Kidneys: Normal in size and shape. No evidence of mass or hydronephrosis. Bilateral renal cysts are stable. Adrenal Glands: Stable bilateral adrenal nodules measuring 3.6 x 3.6 cm on the left and 2.3 x 2.4 c m cyst on the right. Aorta: Infrarenal abdominal aortic aneurysm is noted and is stable. It measures 3.5 x 3.6 cm. Bowel/Mesentery: Uncomplicated colonic diverticulosis is noted. No acute diverticulitis is noted. Abdominal Wall: Intact. Retroperitoneum: No evidence of adenopathy in the retrocrural, para-aortic, or deep pelvic regions. Bladder: Contours are smooth. Reproductive Organs: The prostate is enlarged. Inguinal: The inguinal region is unremarkable without evidence of adenopathy. Bony Structures: Degenerative changes and scoliosis of the thoracolumbar spine are noted. Degenerati ve changes are also noted involving the hip joints bilaterally. There is soft tissue density within t he right buttock inferior to the right ischium measuring 6.4 cm consistent with possible hematoma. Cl inical correlation is recommended. CONCLUSION: 1. Bibasilar patchiness consistent with atelectasis and/or pneumonia. 2. Soft tissue density within the right buttock inferior to the right ischium measuring 6.4 [address] with possible hematoma. Clinical correlation is recommended. 3. Uncomplicated colonic diverticulosis. 4. Stable bilateral adrenal nodules consistent with probable adenomas. 5. Infrarenal abdominal aortic aneurysm measuring 3.5 x 3.6 cm. 6. Enlarged prostate. 7. Degenerative changes and scoliosis of the thoracolumbar spine. 8. Bilateral renal cysts. Electronically signed by: Richy Bentley MD 04/07/2018 2:41 PM EDT
[2018-04-07] MEDS ORDERED: Bisacodyl 10 MG Supp RECTAL PRN (15:57)
--- NOTE | 2018-04-07 16:02 | P.HPIM ---
History of Present Illness Service: [facility] hospitalist Primary Care Physician: UNKNOWN Chief Complaint: Syncope History of Present Illness: 82-year-old male brought in by EMS from an assisted living facility after reported episode of syncope. 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 The patient is a poor historian, but he was able to tell me he was brought to the hospital because he passed out. He denies any lightheadedness, chest pain, or shortness of breath prior to the event. He does not remember anything else. His blood pressure was reportedly borderline. On my evaluation today. He is blood pressure is 90 over 50s. He has been coughing and chest congestion for the past 3-4 weeks. He denies any fevers or chills. Imaging in the emergency room consistent with pneumonia. Patient is currently lying in bed. He denies shortness of breath. Inpatient Certification: I certify that the inpatient services were ordered in accordance with Medicare regulations governing the order. This includes certification that hospital inpatient services are reasonable and necessary and in the case of services not specified as inpatient-only under 42 CFR 419.22(n), that they are appropriately provided as inpatient services in accordance to with the 2-midnight benchmark under 43 CFR 412.3(e) Estimated Total Length of Stay (Days): 3 Plans for Post Hospital Care: SNF Review of Systems other (Review of systems limited due to the patient's memory deficits) Cardiovascular: Denies chest pain Respiratory: Reports chest congestion, Reports cough Gastrointestinal: Denies abdominal pain PMFSH - History History Provided By: Patient - Medical History Medical History: Medical History (Last Reviewed 04/07/18 @ 16:52 by Mack Dey MD) Abdominal hernia Arthritis BPH (benign prostatic hyperplasia) Back pain CAD (coronary artery disease) COPD (chronic obstructive pulmonary disease) GERD (gastroesophageal reflux disease) Glaucoma Hypertension Legal blindness Metal plates in right arm Polyneuropathy Pulmonary fibrosis 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 - Surgical History Surgical History: Surgical History (Last Reviewed 04/07/18 @ 16:52 by Mack Dey MD) History of appendectomy History of knee replacement - Family History Family History: Family History (Last Updated 04/07/18 @ 16:52 by Mack Dey MD) Other Family history non-contributory - Social History I have reviewed the patient's Social History: Yes - Tobacco History Smoking Status: Former smoker - Alcohol History How Often Do You Have a Drink Containing Alcohol: Never - Substance Use History Substance History: No History of Abuse - Travel History Recent Travel in the [place] Within the Last 8 Weeks: No Recent Travel Out of the Country Within the Last 8 Weeks: No - Immunization History Tetanus Immunization: Unsure Hx Influenza Vaccine This Season: No Medications and Allergies Active Medications: Active Medications Al Hydroxide/Mg Hydroxide (Milk Of Magnesia Liq) 30 ml PO Q12H PRN PRN Reason: Mild Constipation Azithromycin (Zithromax) 500 mg PO Q24H [place] Bisacodyl (Dulcolax Supp) 10 mg RECTAL DAILY PRN PRN Reason: SEVERE CONSITIPATION Dorzolamide HCl (Trusopt 2% Opth Drops) drop EACH EYE TID [place] Gabapentin (Neurontin) 300 mg PO HS [place] Lactated Ringer's (Lr 1000 Ml Inj) 1,000 mls @ 100 mls/hr IV.CONT .Q10H [place]NE Stop: 04/08/18 15:59 Cefepime HCl 2,000 mg/ Sodium (Chloride) 100 mls @ 200 mls/hr IV.SIG Q8H [place] Lactulose (Lactulose Liq) 30 ml PO DAILY PRN PRN Reason: SEVERE CONSITIPATION Multivitamins/Minerals (Theragran-M) 1 tab PO DAILY [place] Non-Formulary Medication (Levothyroxine [Levothyroxine]) 125 mcg PO DAILY [place] Non-Formulary Medication (Ranitidine Hcl [Zantac]) 150 mg PO DAILY [place] Pantoprazole Sodium (Protonix) 40 mg PO DAILY [place] Pravastatin Sodium (Pravachol) 80 mg PO DAILY [place] Senna/Docusate Sodium (Susana-Colace) 1 tab PO BID [place] Sennosides (Senokot) 17.2 mg PO Q12H PRN PRN Reason: Moderate Constipation Allergies Allergy/AdvReac Type Severity Reaction Status Date / Time Sulfa (Sulfonamide Allergy Severe Hives Verified 04/07/18 13:28 Antibiotics) Home Medications Medication Instructions Recorded Confirmed Type dorzolamide 1 drp OPHTHALMIC (EYE) TID 04/07/18 04/07/18 History gabapentin [Neurontin] 300 mg PO HS 04/07/18 04/07/18 History levothyroxine 125 mcg PO DAILY 04/07/18 04/07/18 History lisinopril 5 mg PO DAILY 04/07/18 04/07/18 History aaysnrvw-kvhk-XY-calcium-mins 1 tab PO DAILY 04/07/18 04/07/18 History [Thera M Plus (ferrous fumarat)] pantoprazole [Protonix] 40 mg PO DAILY 04/07/18 04/07/18 History pravastatin 80 mg PO DAILY 04/07/18 04/07/18 History quetiapine [Seroquel] 25 mg PO BID 04/07/18 04/07/18 History ranitidine HCl [Zantac] 150 mg PO DAILY 04/07/18 04/07/18 History Exam Vital signs: Vital Signs 04/07/18 11:50 04/07/18 11:56 04/07/18 12:01 Temperature 98.2 F Pulse Rate 95 H 95 H 95 H Respiratory Rate 24 18 Blood Pressure 99/56 L 97/56 L Pulse Oximetry 94 L 93 L 92 L 04/07/18 14:29 Temperature 97.8 F Pulse Rate 78 Respiratory Rate 16 Blood Pressure 111/60 Pulse Oximetry 98 Intake & Output 04/06/18 04/07/18 04/07/18 18:59 06:59 18:59 Intake Total 1100 / 1100 Balance 1100 / 1100 Weight 99.79 kg Intake: IV 1100 / 1100 NS Inj 1,000 ML @ Wide Open IV. 1000 / 1000 SIG BOLUS ONE Rx#:[id number] Rocephin Inj 1,000 MG In NS Inj 100 / 100 100 ML @ 200 mls/hr IV.SIG ONCE ONE Rx#:[id number] Narrative: CONSTITUTIONAL/GENERAL: Elderly male in no acute distress. Vital signs reviewed SKIN: No jaundice, rashes, or concerning lesions. Not diaphoretic. HEAD: Atraumatic. Normocephalic. EYES: Pupils equal and round and reactive. Extra ocular motions are intact. No scleral icterus. No injection or drainage. ENT: Hard of hearing. Throat without visible erythema, exudates, masses, or lesions. NECK: Trachea midline. Neck is supple, non-tender. CARDIOVASCULAR: Normal rate and regular rhythm without murmurs, gallops, or rubs. No JVD. Peripheral pulses 2+ and symmetric. RESPIRATORY/CHEST: Bibasilar rhonchi and rales. Upper lung hahn clear to auscultation bilaterally. Wet cough. GASTROINTESTINAL: Abdomen soft, non-tender, non-distended. MUSCULOSKELETAL: Extremities without clubbing, cyanosis, or edema. NEUROLOGICAL: Awake and alert. Motor and sensory grossly within normal limits. Move all extremities spontaneously. No focal deficits. PSYCHIATRIC: No obvious mood problems. No apparent hallucinations or other psychotic thought process. Results - Labs CBC & Chem 7: 04/07/18 16:00 04/07/18 12:15 Labs: BMP 04/07/18 12:15 Sodium 137 Potassium 4.0 Chloride 103 Carbon Dioxide 24.6 BUN 19 H Creatinine 1.85 H Calcium 9.1 Cardiac Enzymes 04/07/18 Range/Units 12:15 Troponin I Less than 0.02 L (0.02-0.05) ng/mL Liver Function 04/07/18 Range/Units 12:15 Total Bilirubin 0.3 (0.2-1.0) mg/dL AST 38 H (15-37) U/L ALT 30 (12-78) U/L Alkaline Phosphatase 78 (45-117) U/L Albumin 1.7 L (3.4-5.0) g/dL Urine 04/07/18 Range/Units 13:08 Urine Color Yellow (Yellw/Straw) Urine Clarity Clear (Clear) Urine pH 6.0 (5.0-8.5) Ur Specific [place] 1.013 (1.002-1.035) Urine Protein Negative (Neg-Trace) mg/dL Urine Glucose (UA) Negative (Negative) mg/dL - Imaging Impressions Chest X-Ray 04/07/18 11:57 CONCLUSION: 1. Bibasilar patchiness consistent with atelectasis and/or infiltrates. 2. Cardiomegaly. Head CT 04/07/18 11:57 CONCLUSION: 1. Mild cerebral atrophy. 2. Stable periventricular and subcortical white matter small vessel ischemic changes bilaterally. 3. Scattered old lacunar infarcts within the bilateral basal ganglia. 4. No acute infarct, acute hemorrhage, midline shift or extra-axial fluid collections. . Abdomen/Pelvis CT 04/07/18 13:53 CONCLUSION: 1. Bibasilar patchiness consistent with atelectasis and/or pneumonia. 2. Soft tissue density within the right buttock inferior to the right ischium measuring 6.4 cmconsistent with possible hematoma. Clinical correlation is recommended. 3. Uncomplicated colonic diverticulosis. 4. Stable bilateral adrenal nodules consistent with probable adenomas. 5. Infrarenal abdominal aortic aneurysm measuring 3.5 x 3.6 cm. 6. Enlarged prostate. 7. Degenerative changes and scoliosis of the thoracolumbar spine. 8. Bilateral renal cysts. Caprini VTE Risk Assessment Caprini VTE Risk Assessment: Moderate/High Risk (score >= 2) Caprini Risk Assessment Model: Point Value = 1 Point Value = 2 Point Value = 3 Point Value = 5 Age 41-60 Minor surgery BMI > 25 kg/m2 Swollen legs Varicose veins or History of unexplained or recurrent spontaneous Oral contraceptives or hormone replacement Sepsis (< 1 month) Serious lung disease, including pneumonia (< 1 month) Abnormal pulmonary function Acute myocardial infarction Congestive heart failure (< 1 month) History of inflammatory bowel disease Medical patient at bed rest Age 61-74 Arthroscopic surgery Major open surgery (> 45 min) Laparoscopic surgery (> 45 min) Malignancy Confined to bed (> 72 hours) Immobilizing plaster cast Central venous access Age >= 75 History of VTE Family history of VTE Factor V Leiden Prothrombin [id number] Lupus anticoagulant Anticardiolipin antibodies Elevated serum homocysteine Heparin-induced thrombocytopenia Other congenital or acquired thrombophilia Stroke (< 1 month) Elective arthroplasty Hip, pelvis, or leg fracture Acute spinal cord injury (< 1 month) Prophylaxis Regimen: Total Risk Factor Score Risk Level Prophylaxis Regimen 0-1 Low Early ambulation 2 Moderate Order ONE of the following: *Sequential Compression Device (SCD) *Heparin 5000 units SQ BID 3-4 Higher Order ONE of the following medications: *Heparin 5000 units SQ TID *Enoxaparin/Lovenox 40 mg SQ daily (WT < 150 kg, CrCl > 30 mL/min) *Enoxaparin/Lovenox 30 mg SQ daily (WT < 150 kg, CrCl > 10-29 mL/min) *Enoxaparin/Lovenox 30 mg SQ BID (WT < 150 kg, CrCl > 30 mL/min) AND/OR *Sequential Compression Device (SCD) 5 or more Highest Order ONE of the following medications: *Heparin 5000 units SQ TID (Preferred with Epidurals) *Enoxaparin/Lovenox 40 mg SQ daily (WT < 150 kg, CrCl > 30 mL/min) *Enoxaparin/Lovenox 30 mg SQ daily (WT < 150 kg, CrCl > 10-29 mL/min) *Enoxaparin/Lovenox 30 mg SQ BID (WT < 150 kg, CrCl > 30 mL/min) AND *Sequential Compression Device (SCD) Assessment and Plan - Plan 82-year-old male admitted after syncopal episode. The patient was found to have pneumonia. He has been having symptoms for at least a week. Pneumonia: - Treated with cefepime and azithromycin - Breathing treatments as needed - Incentive spirometry - Check Legionella and strep pneumo urinary antigen Syncope: -Could be secondary to pneumonia as above however I cannot rule out an arrhythmia or seizure activity. I do note he was admitted here for a syncopal episode about 4 months ago. - A Holter monitor at the time did show some first-degree AV block and 6 episode of 2-second pauses. - Consult cardiology for assistance - Will obtain 2D echocardiogram, continuous telemetry monitoring - Obtain a brain MRI and EEG Hypertension: - Blood pressure is borderline low currently. Will hold lisinopril. IV fluid. - Continue to monitor [place] I: Likely secondary to dehydration. - Continue IV fluid. Follow-up BMP in a.m. Continue the rest of the patient's medication for hypothyroidism, hyperlipidemia , and peripheral neuropathy. GI prophylaxis: Stool softener PRN constipation. DVT PPx: Heparin Discussed Condition With: ED staff
[2018-04-07 16:35] LABS: Baso % (Auto) 0.4 % (0.0-2.0); Eos % (Auto) 0.6 % (0.0-4.0); Hematocrit 24.1 % (39.0-51.0); Hemoglobin 8.2 gm/dL (13.0-17.0); Lymph # (Auto) 0.8 th/mm3 (1.0-4.8); Lymph % (Auto) 9.6 % (9.0-44.0); Mean Corpuscular HGB Conc 33.9 % (32.0-36.0); Mean Corpuscular Hemoglobin 34.5 pg (27.0-34.0); Mean Corpuscular Volume 101.9 fL (80.0-100.0); Mean Platelet Volume 7.7 fL (7.0-11.0); Mono # (Auto) 0.5 th/mm3 (0.0-0.9); Neut # (Auto) 7.1 th/mm3 (1.8-7.7); Neut % (Auto) 83.4 % (16.0-70.0); Platelet Count 274 th/mm3 (150-450); Red Blood Count 2.36 mil/mm3 (4.50-5.90); Red Cell Distribution Width 13.8 % (11.6-17.2); White Blood Count 8.5 th/mm3 (4.0-11.0)
[2018-04-07] MEDS: Heparin - SQ 10,000 UNITS/ML Vial SQ SCH (20:06)
[2018-04-07] MEDS: Dorzolamide 2% Opth Drops 10 ML Bottle EACH EYE SCH (20:06)
--- NOTE | 2018-04-07 21:24 | MR ---
EXAM DATE: 04/07/2018 8:59 PM EDT AGE/SEX: 82 years / Male INDICATIONS: . Syncope, found unresponsive. CLINICAL DATA: This is the patient's initial encounter. Patient reports that signs and symptoms have been present for 1 day and indicates a pain score of 4/10. MEDICAL/SURGICAL HISTORY: Hypertension. Chronic obstructive pulmonary disease. Pulmonary fibro sis, Legally blind. Appendectomy. Hernia repair, Eye sx 10+ years ago, Shoulder sx, Rt arm sx, Bilat eral knee sx. [place] [facility] [place]. . TECHNIQUE: Multiplanar, multisequence examination of the brain was performed without contrast. FINDINGS: Cerebrum: The ventricles are normal for age. No evidence of midline shift, mass lesion, hemorrhage or acute infarction. No extraaxial fluid collections are seen. The pituitary gland and suprasellar cistern are normal in configuration. White Matter: Mild to moderate severity chronic FLAIR signal abnormality seen in the bilateral periv entricular white matter. Posterior Fossa: The cerebellum and brainstem are intact. The 4th ventricle is midline. The cerebel lopontine angle is unremarkable. The cerebellar tonsils are normal in position. Diffusion Imaging: No focal areas of restricted diffusion are seen. No evidence of acute infarction . Extracranial: There is mucoperiosteal thickening of the left maxillary air cell. CONCLUSION: 1. No acute intracranial abnormality demonstrated. 2. Chronic white matter changes. 3. Chronic appearing left maxillary sinus disease. Electronically signed by: Willi Wooten MD 04/07/2018 9:23 PM EDT
[2018-04-07] MEDS: Gabapentin 300 MG Capsule PO SCH (21:25)
[2018-04-07] MEDS: Senna/Docusate Sodium 8.6/50 MG Tablet PO SCH (21:25)
--- NOTE | 2018-04-07 22:18 | MB ---
cc: Rajinder Ochoa MD DATE: 04/07/2018 HISTORY OF PRESENT ILLNESS: Be is an 82-year-old gentleman who resides in a longterm, brought in with altered mental status. The patient still appears to be disoriented and lethargic. He is sleeping, easily aroused, but does not really give any intelligible history, particularly if I ask him specifically if he is having chest pain. Further history is obtained from the ER. He was found to be unresponsive in his wheelchair at the longterm. It was noted that he was alert and oriented to person and place earlier today. At baseline, he normally answers questions. He also complained of cough and congestion for 3-4 days prior to admission. 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 SOCIAL HISTORY: Currently, he is in an assisted living facility. Former smoker. Denies alcohol use. ALLERGIES: SULFA. MEDICATIONS: 1. Azithromycin 500 mg q.24 hours. 2. Cefepime IV. 3. Pepcid 10 mg b.i.d. 4. Neurontin 300 mg at bedtime. 5. Heparin 5000 subcutaneous q.12 hours. 6. Synthroid 125 mcg daily. 7. Multivitamins. 8. Protonix 40 mg daily. 9. Pravastatin 80 mg daily. PHYSICAL EXAMINATION: VITAL SIGNS: Blood pressure 112/58, pulse 74, respiratory rate 18, temperature 97.9. GENERAL: He is lethargic, somnolent, but arousable, nonfocal, in no acute distress, oriented x 1. NECK: Supple. No JVD. No bruit. CARDIOVASCULAR: S1, S2. No murmurs, rubs or gallops. LUNGS: Clear to auscultation bilaterally. ABDOMEN: Soft, nontender, nondistended with positive bowel sounds. EXTREMITIES: No lower extremity edema. DIAGNOSTIC DATA: Chest x-ray shows bibasilar patchiness consistent with atelectasis and/or infiltrate, cardiomegaly. EKG, normal sinus rhythm at 89 beats per minute, inferior [place], probably old. Head CT, "mild cerebral atrophy, stable periventricular and subcortical white matter small vessel ischemic changes bilaterally with scattered old lacunar infarcts with bilateral basal ganglia." No acute infarct, acute hemorrhage, midline shift or extraaxial fluid collections. Abdominopelvic CT, bibasilar patchiness consistent with atelectasis and/or pneumonia, soft tissue density within the right buttock inferior to the right ischium measuring 6.4 cm consistent with a possible hematoma, uncomplicated colonic diverticulosis, stable bilateral adrenal nodules consistent with probable adenomas, infrarenal abdominal aortic aneurysm measuring 3.5 x 3.6 cm, enlarged prostate, degenerative changes and scoliosis of the thoracolumbar spine, bilateral renal cysts. LABORATORY DATA: White count 8.5, hemoglobin 8.2, hematocrit 24.1, platelet count 274. INR 1.2. Sodium 137, potassium 4.0, chloride 103, bicarbonate 24.6, BUN 19, creatinine 1.85. Lactic acid 10.6. AST 38. Troponin 0.02. BNP 32. Albumin 1.7. DIAGNOSES: 1. Coronary artery disease. 2. Dementia. 3. Altered mental status. 4. Acute renal failure. 5. Lactic acidosis. 6. Elevated liver enzymes. 7. Hypoalbuminemia. 8. Pneumonia. 9. Anemia. 10. Macrocytosis. 11. Abdominal aortic aneurysm. 12. Adrenal nodules. 13. Benign prostatic hypertrophy. 14. Chronic obstructive pulmonary disease. 15. Pulmonary fibrosis. 16. Gastroesophageal reflux disease. 17. Glaucoma. 18. Legal blindness. 19. Hypertension. 20. Polyneuropathy. 21. Central nervous system demyelination. 22. Hematoma. DISCUSSION: At this point in time, the patient does not appear to have any obvious active cardiovascular events occurring, although I cannot get a history out of him. Recommend continued telemetry monitoring. Anticoagulation is being held due to his severe anemia and hematoma. He is on antibiotics for pneumonia. He is being treated with Pravachol for his coronary artery disease, which is appropriate. We will continue to follow to determine trends in mental status, hemodynamics, hemoglobin, renal function. MD ELOY Strong/shari , 06:30 PM , 06:40 PM
[2018-04-08 05:43] LABS: Baso % (Auto) 0.7 % (0.0-2.0); Eos # (Auto) 0.1 th/mm3 (0.0-0.4); Eos % (Auto) 1.3 % (0.0-4.0); Hematocrit 22.4 % (39.0-51.0); Hemoglobin 7.7 gm/dL (13.0-17.0); Lymph % (Auto) 16.9 % (9.0-44.0); Mean Corpuscular HGB Conc 34.5 % (32.0-36.0); Mean Corpuscular Hemoglobin 34.6 pg (27.0-34.0); Mean Corpuscular Volume 100.5 fL (80.0-100.0); Mono # (Auto) 0.4 th/mm3 (0.0-0.9); Mono % (Auto) 6.7 % (0.0-8.0); Neut # (Auto) 4.3 th/mm3 (1.8-7.7); Neut % (Auto) 74.4 % (16.0-70.0); Platelet Count 285 th/mm3 (150-450); Red Blood Count 2.23 mil/mm3 (4.50-5.90); Red Cell Distribution Width 13.7 % (11.6-17.2); White Blood Count 5.8 th/mm3 (4.0-11.0)
[2018-04-08] MEDS: Heparin - SQ 10,000 UNITS/ML Vial SQ SCH ×2 (05:43→17:24)
[2018-04-08] MEDS: Levothyroxine 125 MCG Tablet PO SCH (05:43)
[2018-04-08 06:21] LABS: Calcium 8.1 mg/dL (8.5-10.1); Carbon Dioxide 25.3 meq/L (21.0-32.0); Potassium 3.8 meq/L (3.5-5.1)
[2018-04-08] MEDS: Famotidine 20 MG Tablet PO SCH ×2 (09:30→21:01)
[2018-04-08] MEDS: Dorzolamide 2% Opth Drops 10 ML Bottle EACH EYE SCH ×3 (09:30→17:23)
[2018-04-08] MEDS: Multivitamin/Minerals Therapeutic Tablet PO SCH (09:31)
[2018-04-08] MEDS: Senna/Docusate Sodium 8.6/50 MG Tablet PO SCH ×2 (09:31→21:02)
[2018-04-08] MEDS ORDERED: Sodium Chloride 0.9% 2 ML Flush PRN IV.FLUSH (10:07)
--- NOTE | 2018-04-08 10:40 | P.PNIM ---
Subjective Interval history: Follow-up pneumonia, syncope, hypertension, CAD, hypothyroidism. Patient awake sitting in the bed, with physical therapy in the room stated sit on the side of the bed, patient did well. Patient admitted he cannot see and can only see a little bit on his left eye, due to macular degeneration. Patient complains of coughing, but denies any sputum. Patient denies any fever or chills. Patient denies any pain, chest pain or shortness of breath, denies any headache or dizziness, denies any nausea or vomiting, denies any diarrhea or constipation. Physical Exam Vital signs: Vital Signs 04/07/18 11:50 04/07/18 11:56 04/07/18 12:01 Temperature 98.2 F Pulse Rate 95 H 95 H 95 H Respiratory Rate 24 18 Blood Pressure 99/56 L 97/56 L Pulse Oximetry 94 L 93 L 92 L 04/07/18 14:29 04/07/18 15:57 04/07/18 17:00 Temperature 97.8 F 97.9 F 97.9 F Pulse Rate 78 77 74 Respiratory Rate 16 16 18 Blood Pressure 111/60 112/56 L 112/58 L Pulse Oximetry 98 97 97 04/07/18 17:40 04/07/18 20:00 04/07/18 20:13 Temperature 97.7 F 97.6 F Pulse Rate 81 69 69 Respiratory Rate 17 16 Blood Pressure 116/74 146/67 H Pulse Oximetry 93 L 93 L 04/08/18 00:00 04/08/18 00:01 04/08/18 04:00 Temperature 97.3 F L 97.6 F Pulse Rate 62 67 66 Respiratory Rate 18 17 Blood Pressure 134/67 136/65 Pulse Oximetry 92 L 94 L 04/08/18 04:08 04/08/18 07:34 04/08/18 08:00 Temperature 97.9 F Pulse Rate 69 77 Respiratory Rate 21 Blood Pressure 143/66 H Pulse Oximetry 92 L 91 L Intake & Output 04/07/18 04/08/18 04/08/18 18:59 06:59 18:59 Intake Total 1350 / 1350 1100 / 1100 Output Total 0 / 0 450 / 450 Balance 1350 / 1350 650 / 650 Weight 87.7 kg 87.8 kg Intake: IV 1350 / 1350 1100 / 1100 LR 1000 mL Inj 1,000 ML @ 100 1000 / 1000 mls/hr IV.CONT .Q10H [facility] Rx#: [id number] Azithromycin Inj 500 MG In NS 250 / 250 Inj 250 ML @ 250 mls/hr IV.SIG ONCE ONE Rx#:[id number] Maxipime Inj 2,000 MG In NS Inj 100 / 100 100 ML @ 200 mls/hr IV.SIG Q12H [facility] Rx#:[id number] NS Inj 1,000 ML @ Wide Open IV. 1000 / 1000 SIG BOLUS ONE Rx#:[id number] Rocephin Inj 1,000 MG In NS Inj 100 / 100 100 ML @ 200 mls/hr IV.SIG ONCE ONE Rx#:[id number] Output: Urine 0 / 0 450 / 450 Other: # Voids 1 Weight On Admission 87.7 kg Narrative: GENERAL: Elderly male, in no acute distress SKIN: Warm and dry. Left great toe blister with Band-Aid, left great toe fungal rash on nails HEAD: Atraumatic. Normocephalic. EYES: Pupils equal and round. No scleral icterus. No injection or drainage. Legally blind ENT: No nasal bleeding or discharge. Mucous membranes pink and moist. NECK: Trachea midline. No JVD. CARDIOVASCULAR: Regular rate and rhythm. RESPIRATORY: No accessory muscle use. Slight rhonchi on the basis. Breath sounds equal bilaterally. Positive for cough GASTROINTESTINAL: Abdomen soft, non-tender, nondistended. Hepatic and splenic margins not palpable. MUSCULOSKELETAL: Extremities without clubbing, cyanosis, or edema. No obvious deformities. NEUROLOGICAL: Awake and alert. No obvious cranial nerve deficits. Motor grossly within normal limits. Generalized weakness, moving all 4 extremities. Normal speech. PSYCHIATRIC: Appropriate mood and affect; insight and judgment normal. - Urinary Catheter Management Straight Cath placed during this visit: yes, but has since been removed by the nurse Reason for continuing: Decision to DC catheter Insertion date: 04/07/18 Insertion time: 13: Removal date: 04/07/18 Removal time: : Results - Labs CBC & Chem 7: 04/08/18 04:04 04/08/18 04:04 Laboratory Results - last 24 hr 04/07/18 04/07/18 04/07/18 12:15 12:15 12:15 WBC RBC Hgb Hct MCV MCH MCHC RDW Plt Count MPV Neut % (Auto) Lymph % (Auto) [place] % (Auto) Eos % (Auto) Baso % (Auto) Neut # (Auto) Lymph # (Auto) [place] # (Auto) Eos # (Auto) Baso # (Auto) WBC Differential Differential Comment PT INR APTT Sodium 137 Potassium 4.0 Chloride 103 Carbon Dioxide 24.6 Anion Gap 9 BUN 19 H Creatinine 1.85 H Estimated GFR 35 L POC Glucose Random Glucose 101 Lactic Acid 2.6 H Calcium 9.1 Magnesium 1.7 Total Bilirubin 0.3 AST 38 H ALT 30 Alkaline Phosphatase 78 Troponin I Less than 0.02 L B-Natriuretic Peptide 32 Total Protein 10.6 H Albumin 1.7 L TSH Urine Color Urine Clarity Urine pH Ur Specific [place] Urine Protein Urine Glucose (UA) Urine Ketones Urine Occult Blood Urine Nitrate Urine Bilirubin Urine Urobilinogen Ur Leukocyte Esterase Urine RBC Urine WBC Urine Mucus Micro UA Comment Ur Microscopic Review Urine Culture Comments Blood Type Blood Type Recheck Antibody Screen 04/07/18 04/07/18 04/07/18 12:15 12:15 12:20 WBC RBC Hgb Hct MCV MCH MCHC RDW Plt Count MPV Neut % (Auto) Lymph % (Auto) [place] % (Auto) Eos % (Auto) Baso % (Auto) Neut # (Auto) Lymph # (Auto) [place] # (Auto) Eos # (Auto) Baso # (Auto) WBC Differential Differential Comment PT INR APTT Sodium Potassium Chloride Carbon Dioxide Anion Gap BUN Creatinine Estimated GFR POC Glucose 110 Random Glucose Lactic Acid Calcium Magnesium Total Bilirubin AST ALT Alkaline Phosphatase Troponin I B-Natriuretic Peptide Total Protein Albumin TSH 0.450 Urine Color Urine Clarity Urine pH Ur Specific [place] Urine Protein Urine Glucose (UA) Urine Ketones Urine Occult Blood Urine Nitrate Urine Bilirubin Urine Urobilinogen Ur Leukocyte Esterase Urine RBC Urine WBC Urine Mucus Micro UA Comment Ur Microscopic Review Urine Culture Comments Blood Type O Positive Blood Type Recheck Required Antibody Screen Negative 04/07/18 04/07/18 04/07/18 13:08 13:08 16:00 WBC 8.5 RBC 2.36 L Hgb 8.2 L Hct 24.1 L MCV 101.9 H MCH 34.5 H MCHC 33.9 RDW 13.8 Plt Count 274 MPV 7.7 Neut % (Auto) 83.4 H Lymph % (Auto) 9.6 [place] % (Auto) 6.0 Eos % (Auto) 0.6 Baso % (Auto) 0.4 Neut # (Auto) 7.1 Lymph # (Auto) 0.8 L [place] # (Auto) 0.5 Eos # (Auto) 0.0 Baso # (Auto) 0.0 WBC Differential . Differential Comment Auto diff final PT 12.2 H INR 1.2 APTT 25.9 Sodium Potassium Chloride Carbon Dioxide Anion Gap BUN Creatinine Estimated GFR POC Glucose Random Glucose Lactic Acid Calcium Magnesium Total Bilirubin AST ALT Alkaline Phosphatase Troponin I B-Natriuretic Peptide Total Protein Albumin TSH Urine Color Yellow Urine Clarity Clear Urine pH 6.0 Ur Specific [place] 1.013 Urine Protein Negative Urine Glucose (UA) Negative Urine Ketones Negative Urine Occult Blood Negative Urine Nitrate Negative Urine Bilirubin Negative Urine Urobilinogen 2.0 H Ur Leukocyte Esterase Negative Urine RBC Less than 1 Urine WBC Less than 1 Urine Mucus Few H Micro UA Comment Culture not ind Ur Microscopic Review Not Reportable Urine Culture Comments Culture not ind Blood Type Blood Type Recheck Antibody Screen 04/07/18 04/08/18 04/08/18 16:00 04:04 04:04 WBC 5.8 RBC 2.23 L Hgb 7.7 L Hct 22.4 L MCV 100.5 H MCH 34.6 H MCHC 34.5 RDW 13.7 Plt Count 285 MPV 8.0 Neut % (Auto) 74.4 H Lymph % (Auto) 16.9 [place] % (Auto) 6.7 Eos % (Auto) 1.3 Baso % (Auto) 0.7 Neut # (Auto) 4.3 Lymph # (Auto) 1.0 [place] # (Auto) 0.4 Eos # (Auto) 0.1 Baso # (Auto) 0.0 WBC Differential . Differential Comment Auto diff final PT INR APTT Sodium 143 Potassium 3.8 Chloride 108 H Carbon Dioxide 25.3 Anion Gap 10 BUN 17 Creatinine 1.43 H Estimated GFR 47 L POC Glucose Random Glucose 81 Lactic Acid 1.3 Calcium 8.1 L D Magnesium Total Bilirubin AST ALT Alkaline Phosphatase Troponin I B-Natriuretic Peptide Total Protein Albumin TSH Urine Color Urine Clarity Urine pH Ur Specific [place] Urine Protein Urine Glucose (UA) Urine Ketones Urine Occult Blood Urine Nitrate Urine Bilirubin Urine Urobilinogen Ur Leukocyte Esterase Urine RBC Urine WBC Urine Mucus Micro UA Comment Ur Microscopic Review Urine Culture Comments Blood Type Blood Type Recheck Antibody Screen Microbiology 04/07/18 21:30 Urine - Random Urine Legionella Antigen - Final Presumptive negative for Legionella pneumophila serogroup 1 antigen in urine, suggesting no recent or recurrent infection. Infection due to Legionella cannot be ruled out since other serogroups and species may cause disease, antigen may not be present in urine in early infection, and the level of antigen present in the urine may be below the detection limit of the test. 04/07/18 21:30 Urine - Random Urine Streptococcus pneumoniae Antigen (M - Final Presumptive negative for streptococcus pneumoniae antigen, suggesting no current or recent infection. Infection due to Streptococcus pneumoniae cannot be ruled out since the antigen present in the sample may be below the detection limit of the test. - Imaging Impressions Head MRI 04/07/18 00:00 CONCLUSION: 1. No acute intracranial abnormality demonstrated. 2. Chronic white matter changes. 3. Chronic appearing left maxillary sinus disease. Chest X-Ray 04/07/18 11:57 CONCLUSION: 1. Bibasilar patchiness consistent with atelectasis and/or infiltrates. 2. Cardiomegaly. Head CT 04/07/18 11:57 CONCLUSION: 1. Mild cerebral atrophy. 2. Stable periventricular and subcortical white matter small vessel ischemic changes bilaterally. 3. Scattered old lacunar infarcts within the bilateral basal ganglia. 4. No acute infarct, acute hemorrhage, midline shift or extra-axial fluid collections. . Abdomen/Pelvis CT 04/07/18 13:53 CONCLUSION: 1. Bibasilar patchiness consistent with atelectasis and/or pneumonia. 2. Soft tissue density within the right buttock inferior to the right ischium measuring 6.4 cmconsistent with possible hematoma. Clinical correlation is recommended. 3. Uncomplicated colonic diverticulosis. 4. Stable bilateral adrenal nodules consistent with probable adenomas. 5. Infrarenal abdominal aortic aneurysm measuring 3.5 x 3.6 cm. 6. Enlarged prostate. 7. Degenerative changes and scoliosis of the thoracolumbar spine. 8. Bilateral renal cysts. Assessment and Plan - Plan Patient is an 82-year-old male brought in by EMS from an assisted living facility after reported episode of syncope. 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 The patient was found to have pneumonia. He has been having symptoms for at least a week. Pneumonia: - Treated with cefepime and azithromycin - Breathing treatments as needed - Incentive spirometry - Legionella: presumptive negative - Strep pneumo urinary antigen: Presumptive negative Syncope: -Could be secondary to pneumonia as above however cannot rule out an arrhythmia or seizure activity. Patient was admitted here for a syncopal episode about 4 months ago. - A Holter monitor at the time did show some first-degree AV block and 6 episode of 2-second pauses. - Consult cardiology for assistance - Will obtain 2D echocardiogram, continuous telemetry monitoring - MRI : No intracranial abnormality, - EEG done, awaiting for results Hypertension/CAD/HLD - Blood pressure improving, was borderline low on admission. Lisinopril on hold -continue IV fluid -continue Pravastatin - Continue to monitor LOPEZ: Likely secondary to dehydration. - Continue IV fluid -avoid nephrotoxins -monitor BMP Hx of hypothyroidism, hyperlipidemia, and peripheral neuropathy -stable, TSH 0.450 -continue home medications Right Buttock hematoma Unknown if patient fall or any trauma -monitor Generalized weakness PT/OT rehab per protocol GI prophylaxis: Stool softener PRN constipation. DVT PPx: Heparin Code Status: full code Discussed Condition With: patient and nurse
--- NOTE | 2018-04-08 14:08 | P.PNCA ---
Subjective Interval history: alert in nad, ox 0-1 Medications and Allergies Active Medications: Active Medications Al Hydroxide/Mg Hydroxide (Milk Of Magnesia Liq) 30 ml PO Q12H PRN PRN Reason: Mild Constipation Azithromycin (Zithromax) 500 mg PO Q24H [facility] Bisacodyl (Dulcolax Supp) 10 mg RECTAL DAILY PRN PRN Reason: SEVERE CONSITIPATION Dorzolamide HCl (Trusopt 2% Opth Drops) 1 drop EACH EYE TID [facility] Last Admin: 04/08/18 09:30 Dose: 1 drop Famotidine (Pepcid) 10 mg PO BID [facility] Last Admin: 04/08/18 09:30 Dose: 10 mg Gabapentin (Neurontin) 300 mg PO HS [facility] Last Admin: 04/07/18 21:25 Dose: 300 mg Guaifenesin (Robitussin Liq) 200 mg PO Q4H PRN PRN Reason: COUGH Heparin Sodium (Porcine) (Heparin Inj) 5,000 units SQ Q12H [facility] Last Admin: 04/08/18 05:43 Dose: 5,000 units Lactated Ringer's (Lr 1000 Ml Inj) 1,000 mls @ 100 mls/hr IV.CONT .Q10H [facility] Stop: 04/08/18 15:59 Last Admin: 04/08/18 13:18 Dose: 100 mls/hr Cefepime HCl 2,000 mg/ Sodium (Chloride) 100 mls @ 200 mls/hr IV.SIG Q12H [facility] Last Infusion: 04/08/18 10:05 Dose: Infused Lactulose (Lactulose Liq) 30 ml PO DAILY PRN PRN Reason: SEVERE CONSITIPATION Levothyroxine Sodium (Synthroid) 125 mcg PO DAILY@0600 [facility] Last Admin: 04/08/18 05:43 Dose: 125 mcg Miscellaneous (Pill Splitter) 1 each OTHER UNSCH PRN PRN Reason: PILL SPLITTER Multivitamins/Minerals (Theragran-M) 1 tab PO DAILY [facility] Last Admin: 04/08/18 09:31 Dose: 1 tab Pantoprazole Sodium (Protonix) 40 mg PO DAILY [facility] Last Admin: 04/08/18 09:31 Dose: 40 mg Pravastatin Sodium (Pravachol) 80 mg PO DAILY [facility] Last Admin: 04/08/18 09:31 Dose: 80 mg Senna/Docusate Sodium (Susana-Colace) 1 tab PO BID [facility] Last Admin: 04/08/18 09:31 Dose: 1 tab Sennosides (Senokot) 17.2 mg PO Q12H PRN PRN Reason: Moderate Constipation Sodium Chloride (Ns Flush) 2 ml IV.FLUSH BID [facility] Sodium Chloride (Ns Flush) 2 ml IV.FLUSH PRN PRN PRN Reason: FLUSH AFTER USING IV ACCESS Allergies Allergy/AdvReac Type Severity Reaction Status Date / Time Sulfa (Sulfonamide Allergy Severe Hives Verified 04/07/18 13:28 Antibiotics) Home Medications Medication Instructions Recorded Confirmed Type dorzolamide 1 drp OPHTHALMIC (EYE) TID 04/07/18 04/07/18 History gabapentin [Neurontin] 300 mg PO HS 04/07/18 04/07/18 History levothyroxine 125 mcg PO DAILY 04/07/18 04/07/18 History lisinopril 5 mg PO DAILY 04/07/18 04/07/18 History lhtujhel-ndia-DC-calcium-mins 1 tab PO DAILY 04/07/18 04/07/18 History [Thera M Plus (ferrous fumarat)] pantoprazole [Protonix] 40 mg PO DAILY 04/07/18 04/07/18 History pravastatin 80 mg PO DAILY 04/07/18 04/07/18 History quetiapine [Seroquel] 25 mg PO BID 04/07/18 04/07/18 History ranitidine HCl [Zantac] 150 mg PO DAILY 04/07/18 04/07/18 History Physical Exam Vital signs: Vital Signs 04/07/18 14:29 04/07/18 15:57 04/07/18 17:00 Temperature 97.8 F 97.9 F 97.9 F Pulse Rate 78 77 74 Respiratory Rate 16 16 18 Blood Pressure 111/60 112/56 L 112/58 L Pulse Oximetry 98 97 97 04/07/18 17:40 04/07/18 20:00 04/07/18 20:13 Temperature 97.7 F 97.6 F Pulse Rate 81 69 69 Respiratory Rate 17 16 Blood Pressure 116/74 146/67 H Pulse Oximetry 93 L 93 L 04/08/18 00:00 04/08/18 00:01 04/08/18 04:00 Temperature 97.3 F L 97.6 F Pulse Rate 62 67 66 Respiratory Rate 18 17 Blood Pressure 134/67 136/65 Pulse Oximetry 92 L 94 L 04/08/18 04:08 04/08/18 07:34 04/08/18 08:00 Temperature 97.9 F Pulse Rate 69 77 Respiratory Rate 21 Blood Pressure 143/66 H Pulse Oximetry 92 L 91 L 04/08/18 12:00 Temperature 98.2 F Pulse Rate 91 H Respiratory Rate 20 Blood Pressure Pulse Oximetry 91 L Intake & Output 04/07/18 04/08/18 04/08/18 18:59 06:59 18:59 Intake Total 1350 / 1350 1100 / 1100 1100 / 1100 Output Total 0 / 0 450 / 450 Balance 1350 / 1350 650 / 650 1100 / 1100 Weight 87.7 kg 87.8 kg Intake: IV 1350 / 1350 1100 / 1100 1100 / 1100 LR 1000 mL Inj 1,000 ML @ 100 1000 / 1000 1000 / 1000 mls/hr IV.CONT .Q10H [facility] Rx#: [id number] Azithromycin Inj 500 MG In NS 250 / 250 Inj 250 ML @ 250 mls/hr IV.SIG ONCE ONE Rx#:[id number] Maxipime Inj 2,000 MG In NS Inj 100 / 100 100 / 100 100 ML @ 200 mls/hr IV.SIG Q12H [facility] Rx#:[id number] NS Inj 1,000 ML @ Wide Open IV. 1000 / 1000 SIG BOLUS ONE Rx#:[id number] Rocephin Inj 1,000 MG In NS Inj 100 / 100 100 ML @ 200 mls/hr IV.SIG ONCE ONE Rx#:[id number] Output: Urine 0 / 0 450 / 450 Other: # Voids 1 Weight On Admission 87.7 kg - Urinary Catheter Management Straight Cath placed during this visit: yes, but has since been removed by the nurse Reason for continuing: Decision to DC catheter Insertion date: 04/07/18 Insertion time: 13:19 Removal date: 04/07/18 Removal time: : Results 04/08/18 04:04 04/08/18 04:04 Cardiac Enzymes 04/07/18 04/07/18 Range/Units 12:15 12:15 AST 38 H (15-37) U/L Troponin I Less than 0.02 L (0.02-0.05) ng/mL B-Natriuretic Peptide 32 (0-100) pg/mL Coagulation 04/07/18 04/07/18 Range/Units 12:15 13:08 PT 12.2 H (9.8-11.6) sec APTT 25.9 (24.3-30.1) sec B-Natriuretic Peptide 32 (0-100) pg/mL CBC 04/07/18 04/08/18 Range/Units 16:00 04:04 WBC 8.5 5.8 (4.0-11.0) th/mm3 RBC 2.36 L 2.23 L (4.50-5.90) mil/mm3 Hgb 8.2 L 7.7 L (13.0-17.0) gm/dL Hct 24.1 L 22.4 L (39.0-51.0) % Plt Count 274 285 (150-450) th/mm3 Neut # (Auto) 7.1 4.3 (1.8-7.7) th/mm3 Lymph # (Auto) 0.8 L 1.0 (1.0-4.8) th/mm3 [place] # (Auto) 0.5 0.4 (0.0-0.9) th/mm3 Eos # (Auto) 0.0 0.1 (0.0-0.4) th/mm3 Baso # (Auto) 0.0 0.0 (0.0-0.2) th/mm3 Comprehensive Metabolic Panel 04/07/18 04/08/18 Range/Units 12:15 04:04 Sodium 137 143 (136-145) meq/L Potassium 4.0 3.8 (3.5-5.1) meq/L Chloride 103 108 H (98-107) meq/L Carbon Dioxide 24.6 25.3 (21.0-32.0) meq/L BUN 19 H 17 (7-18) mg/dL Creatinine 1.85 H 1.43 H (0.60-1.30) mg/dL Calcium 9.1 8.1 L D (8.5-10.1) mg/dL AST 38 H (15-37) U/L ALT 30 (12-78) U/L Alkaline Phosphatase 78 (45-117) U/L Total Protein 10.6 H (6.4-8.2) g/dL Albumin 1.7 L (3.4-5.0) g/dL Intake and Output 04/07/18 04/08/18 04/08/18 22:59 06:59 14:59 Intake Total 350 / 350 1000 / 1000 1100 / 1100 Output Total 0 / 0 450 / 450 Balance 350 / 350 550 / 550 1100 / 1100 Intake: IV 350 / 350 1000 / 1000 1100 / 1100 LR 1000 mL Inj 1,000 ML @ 100 1000 / 1000 1000 / 1000 mls/hr IV.CONT .Q10H [facility] Rx#: [id number] Azithromycin Inj 500 MG In NS 250 / 250 Inj 250 ML @ 250 mls/hr IV.SIG ONCE ONE Rx#:[id number] Maxipime Inj 2,000 MG In NS Inj 100 / 100 100 / 100 100 ML @ 200 mls/hr IV.SIG Q12H [facility] Rx#:[id number] Output: Urine 0 / 0 450 / 450 Other: # Voids 1 Weight 87.7 kg 87.8 kg Weight On Admission 87.7 kg - Imaging and Cardiology Imaging: Impressions Head MRI 04/07/18 00:00 CONCLUSION: 1. No acute intracranial abnormality demonstrated. 2. Chronic white matter changes. 3. Chronic appearing left maxillary sinus disease. Chest X-Ray 04/07/18 11:57 CONCLUSION: 1. Bibasilar patchiness consistent with atelectasis and/or infiltrates. 2. Cardiomegaly. Head CT 04/07/18 11:57 CONCLUSION: 1. Mild cerebral atrophy. 2. Stable periventricular and subcortical white matter small vessel ischemic changes bilaterally. 3. Scattered old lacunar infarcts within the bilateral basal ganglia. 4. No acute infarct, acute hemorrhage, midline shift or extra-axial fluid collections. . Abdomen/Pelvis CT 04/07/18 13:53 CONCLUSION: 1. Bibasilar patchiness consistent with atelectasis and/or pneumonia. 2. Soft tissue density within the right buttock inferior to the right ischium measuring 6.4 cmconsistent with possible hematoma. Clinical correlation is recommended. 3. Uncomplicated colonic diverticulosis. 4. Stable bilateral adrenal nodules consistent with probable adenomas. 5. Infrarenal abdominal aortic aneurysm measuring 3.5 x 3.6 cm. 6. Enlarged prostate. 7. Degenerative changes and scoliosis of the thoracolumbar spine. 8. Bilateral renal cysts. Assessment and Plan - Assessment (1) CAD (coronary artery disease) Code(s): I25.10 - Atherosclerotic heart disease of [place] coronary artery without angina pectoris Status: Acute (2) Syncope Code(s): R55 - Syncope and collapse Status: Acute (3) Anemia Code(s): D64.9 - Anemia, unspecified Status: Acute (4) Pneumonia Code(s): J18.9 - Pneumonia, unspecified organism Status: Acute (5) Dehydration Code(s): E86.0 - Dehydration Status: Acute (6) Lactic acidosis Code(s): E87.2 - Acidosis Status: Acute - Plan 1.) Syncope = f/u echo, no further reported events 2.) CAD - assymptomatic, continue pravachol, ac held due to unstable hgb and severe anemia (4) Pneumonia Qualifiers: Pneumonia type: due to unspecified organism Laterality: bilateral Lung location: lower lobe of lung Qualified Code(s): J18.1 - Lobar pneumonia, unspecified organism
[2018-04-08] MEDS: Azithromycin 250 MG Tablet PO SCH (14:58)
--- NOTE | 2018-04-08 17:26 | ECG ---
Date Performed: 04/07/2018 Time Performed: 21:38:55 PTAGE: 82 years EKG: Sinus rhythm WITH FIRST DEGREE AV BLOCK MODERATE INTRAVENTRICULAR CONDUCTION DELAY Compared to previous tracing, inferior infarct pattern is less prominent ABNORMAL ECG PREVIOUS TRACING : 04/07/2018 12.44 DOCTOR: Kirk May Interpretating Date/Time 04/08/2018 17:25:11
--- NOTE | 2018-04-08 17:26 | ECG ---
Date Performed: 04/07/2018 Time Performed: 12:44:04 PTAGE: 82 years EKG: Sinus rhythm WITH FIRST DEGREE AV BLOCK INFERIOR MYOCARDIAL INFARCTION Compared to previous tracing, inferior inf arct pattern is more prominent likely due to lead placement differences ABNORMAL ECG PREVIOUS TRACING : 12/06/2017 11.29 DOCTOR: Kirk May Interpretating Date/Time 04/08/2018 17:24:25
[2018-04-08] MEDS: Gabapentin 300 MG Capsule PO SCH (21:04)
[2018-04-08] MEDS: Sodium Chloride 0.9% 2 ML Flush BID IV.FLUSH SCH (21:05)
--- NOTE | 2018-04-08 21:44 | MG ---
cc: Jarret Shi MD ELECTROENCEPHALOGRAM RECORD NUMBER: [id number] DESCRIPTION: A 5-6 Hz posterior rhythm, 20-40 microvolts. Occasional 2-3 Hz delta bursts. Good anterior-posterior gradient. Limited driving with photic stimulation. Further generalized slowing with transition into drowsy state and stage I sleep, possibly II as well. Good EEG variability and reactivity. Single-lead EKG showing sinus rhythm with frequent premature contractions. INTERPRETATION: Mild encephalopathy in sleep state. Clinical correlation. MD LUIZ Dsouza/shari , 09:26 PM , 09:31 PM
[2018-04-09] MEDS: Heparin - SQ 10,000 UNITS/ML Vial SQ SCH ×2 (05:53→17:25)
[2018-04-09] MEDS: Levothyroxine 125 MCG Tablet PO SCH (05:53)
[2018-04-09 06:43] LABS: Calcium 8.8 mg/dL (8.5-10.1); Carbon Dioxide 24.6 meq/L (21.0-32.0); Potassium 3.6 meq/L (3.5-5.1)
[2018-04-09 06:49] LABS: Hemoglobin 8.6 gm/dL (13.0-17.0); Mean Corpuscular HGB Conc 35.7 % (32.0-36.0); Mean Corpuscular Hemoglobin 36.2 pg (27.0-34.0); Mean Corpuscular Volume 101.2 fL (80.0-100.0); Mean Platelet Volume 7.9 fL (7.0-11.0); Platelet Count 278 th/mm3 (150-450); Red Blood Count 2.38 mil/mm3 (4.50-5.90); Red Cell Distribution Width 13.7 % (11.6-17.2); White Blood Count 5.7 th/mm3 (4.0-11.0)
--- NOTE | 2018-04-09 08:34 | P.PNIM ---
Subjective Interval history: Follow-up pneumonia, syncope, hypertension with recent hypotension. Patient laying in bed nurse at bedside. Patient awake alert and oriented x2, complains of coughing but not coughing any sputum. Patient denies any fever or chills, denies any headache or dizziness, denies any nausea or vomiting. Patient denies any pain chest pain or shortness of breath. Physical Exam Vital signs: Vital Signs 04/08/18 11:50 04/08/18 12:00 04/08/18 16:00 Temperature 98.2 F 97.8 F Pulse Rate 78 91 H 86 Respiratory Rate 20 20 Blood Pressure 154/70 H Pulse Oximetry 91 L 90 L 04/08/18 20:00 04/09/18 00:00 04/09/18 04:00 Temperature 97.8 F 97.8 F 98.2 F Pulse Rate 77 81 75 Respiratory Rate 20 20 18 Blood Pressure 159/76 H 154/75 H 167/79 H Pulse Oximetry 92 L 93 L 94 L Intake & Output 04/08/18 04/09/18 04/09/18 18:59 06:59 18:59 Intake Total 1460 / 1460 1100 / 1100 Output Total 800 / 800 350 / 350 Balance 660 / 660 750 / 750 Weight 88.6 kg Intake: IV 1100 / 1100 1100 / 1100 LR 1000 mL Inj 1,000 ML @ 100 1000 / 1000 1000 / 1000 mls/hr IV.CONT .Q10H [facility] Rx#: [id number] Maxipime Inj 2,000 MG In NS Inj 100 / 100 100 / 100 100 ML @ 200 mls/hr IV.SIG Q12H [facility] Rx#:[id number] Oral 360 / 360 Output: Urine 800 / 800 350 / 350 Narrative: GENERAL: Elderly male, in no acute distress SKIN: Warm and dry. Left great toe blister with Band-Aid, left great toe fungal rash on nails HEAD: Atraumatic. Normocephalic. EYES: Pupils equal and round. No scleral icterus. No injection or drainage. Legally blind ENT: No nasal bleeding or discharge. Mucous membranes pink and moist. NECK: Trachea midline. No JVD. CARDIOVASCULAR: Regular rate and rhythm. No edema RESPIRATORY: No accessory muscle use. Slight rhonchi on the bases. Breath sounds equal bilaterally. Positive for cough, no sputum GASTROINTESTINAL: Abdomen soft, non-tender, nondistended. Hepatic and splenic margins not palpable. MUSCULOSKELETAL: Extremities without clubbing, cyanosis, or edema. No obvious deformities. NEUROLOGICAL: Awake and alert. No obvious cranial nerve deficits. Motor grossly within normal limits. Generalized weakness, moving all 4 extremities. Normal speech. PSYCHIATRIC: Appropriate mood and affect; insight and judgment normal. - Urinary Catheter Management Straight Cath placed during this visit: yes, but has since been removed by the nurse Reason for continuing: Decision to DC catheter Insertion date: 04/07/18 Insertion time: Removal date: 04/07/18 Removal time: Results - Labs CBC & Chem 7: 04/09/18 05:50 04/09/18 05:50 Laboratory Results - last 24 hr 04/09/18 04/09/18 05:50 05:50 WBC 5.7 RBC 2.38 L Hgb 8.6 L Hct 24.0 L MCV 101.2 H MCH 36.2 H MCHC 35.7 RDW 13.7 Plt Count 278 MPV 7.9 Sodium 139 Potassium 3.6 Chloride 105 Carbon Dioxide 24.6 Anion Gap 9 BUN 12 Creatinine 1.25 Estimated GFR 55 L Random Glucose 84 Calcium 8.8 Microbiology 04/07/18 21:30 Urine - Random Urine Legionella Antigen - Final Presumptive negative for Legionella pneumophila serogroup 1 antigen in urine, suggesting no recent or recurrent infection. Infection due to Legionella cannot be ruled out since other serogroups and species may cause disease, antigen may not be present in urine in early infection, and the level of antigen present in the urine may be below the detection limit of the test. 04/07/18 21:30 Urine - Random Urine Streptococcus pneumoniae Antigen (M - Final Presumptive negative for streptococcus pneumoniae antigen, suggesting no current or recent infection. Infection due to Streptococcus pneumoniae cannot be ruled out since the antigen present in the sample may be below the detection limit of the test. Assessment and Plan - Plan Patient is an 82-year-old male brought in by EMS from an assisted living facility after reported episode of syncope. The patient has a history significant for AAA, [employer] demyelination with associated gait disorder, coronary artery disease, macular degeneration, hypertension, and hypothyroidism. The patient was found to have pneumonia. He has been having symptoms for at least a week. Pneumonia: - continue cefepime and azithromycin, Plan to change to levaquin PO after todays IV dose - Breathing treatments schedule and prn - Incentive spirometry - Legionella: presumptive negative - Strep pneumo urinary antigen: Presumptive negative - add Ryan pearlu Syncope: -Could be secondary to pneumonia as above however cannot rule out an arrhythmia or seizure activity. Patient was admitted here for a syncopal episode about 4 months ago. - A Holter monitor at the time did show some first-degree AV block and 6 episode of 2-second pauses. - Consult cardiology for assistance - continuous telemetry monitoring - MRI : No intracranial abnormality, - EEG: mild encephalopathy -2D Echo ordered -check orthostatics Hypertension/CAD/HLD - Blood pressure elevated, was borderline low on admission -d/c lisinopril due to LOPEZ, start on Norvasc -continue IV fluid -continue Pravastatin - Continue to monitor LOPEZ: Likely secondary to dehydration. - Continue IV fluid -avoid nephrotoxins -monitor BMP Hx of hypothyroidism, hyperlipidemia, and peripheral neuropathy -stable, TSH 0.450 -continue home medications Right Buttock hematoma Unknown if patient fall or any trauma -monitor Generalized weakness PT/OT rehab per protocol GI prophylaxis: Stool softener PRN constipation. DVT PPx: Heparin Code Status: full code Discussed Condition With: patient, nurse, Dr Bonilla Discharge Planning: May be able to discharge in 1 day if cleared with cardiology and if 2D Echo unremarkable
[2018-04-09] MEDS: amLODIPine 5 MG Tablet PO SCH (08:41)
[2018-04-09] MEDS: Senna/Docusate Sodium 8.6/50 MG Tablet PO SCH ×2 (08:41→20:30)
[2018-04-09] MEDS: Famotidine 20 MG Tablet PO SCH ×2 (08:41→20:30)
[2018-04-09] MEDS: Multivitamin/Minerals Therapeutic Tablet PO SCH (08:42)
[2018-04-09] MEDS: Sodium Chloride 0.9% 2 ML Flush BID IV.FLUSH SCH ×2 (08:42→20:30)
[2018-04-09] MEDS: Dorzolamide 2% Opth Drops 10 ML Bottle EACH EYE SCH ×3 (08:43→17:26)
[2018-04-09] MEDS: Benzonatate 100 MG Capsule PO PRN ×2 (08:52→20:29)
[2018-04-09] MEDS ORDERED: Benzocaine/Menthol 15 MG/3.6 MG SF Lozenge BUCCAL PRN (12:00)
[2018-04-09] MEDS: Azithromycin 250 MG Tablet PO SCH (13:50)
--- NOTE | 2018-04-09 14:50 | P.PNCA ---
Subjective Interval history: alert in nad Medications and Allergies Active Medications: Active Medications Al Hydroxide/Mg Hydroxide (Milk Of Magnesia Liq) 30 ml PO Q12H PRN PRN Reason: Mild Constipation Albuterol (Duoneb Neb ([facility])) 1 ampul NEB Q4HR NEB [facility] Last Admin: 04/09/18 12:43 Dose: 1 ampul Amlodipine Besylate (Norvasc) 5 mg PO DAILY [facility] Last Admin: 04/09/18 08:41 Dose: 5 mg Azithromycin (Zithromax) 500 mg PO Q24H [facility] Last Admin: 04/09/18 13:50 Dose: 500 mg Benzocaine/Menthol (Cepacol Max Strength) 1 lozenge BUCCAL Q2H PRN PRN Reason: cough/itchy throat Benzonatate (Tessalon Perles) 200 mg PO Q8H PRN PRN Reason: COUGH Last Admin: 04/09/18 08:52 Dose: 200 mg Bisacodyl (Dulcolax Supp) 10 mg RECTAL DAILY PRN PRN Reason: SEVERE CONSITIPATION Dorzolamide HCl (Trusopt 2% Opth Drops) 1 drop EACH EYE TID [facility] Last Admin: 04/09/18 08:43 Dose: 1 drop Famotidine (Pepcid) 10 mg PO BID [facility] Last Admin: 04/09/18 08:41 Dose: 10 mg Gabapentin (Neurontin) 100 mg PO HS [facility] Guaifenesin (Robitussin Liq) 200 mg PO Q4H PRN PRN Reason: COUGH Last Admin: 04/09/18 13:50 Dose: 200 mg Heparin Sodium (Porcine) (Heparin Inj) 5,000 units SQ Q12H [facility] Last Admin: 04/09/18 05:53 Dose: 5,000 units Cefepime HCl 2,000 mg/ Sodium (Chloride) 100 mls @ 200 mls/hr IV.SIG Q12H [facility] Last Infusion: 04/09/18 09:16 Dose: Infused Lactulose (Lactulose Liq) 30 ml PO DAILY PRN PRN Reason: SEVERE CONSITIPATION Levothyroxine Sodium (Synthroid) 125 mcg PO DAILY@0600 [facility] Last Admin: 04/09/18 05:53 Dose: 125 mcg Miscellaneous (Pill Splitter) 1 each OTHER UNSCH PRN PRN Reason: PILL SPLITTER Multivitamins/Minerals (Theragran-M) 1 tab PO DAILY [facility] Last Admin: 04/09/18 08:42 Dose: 1 tab Pantoprazole Sodium (Protonix) 40 mg PO DAILY [facility] Last Admin: 04/09/18 08:42 Dose: 40 mg Pravastatin Sodium (Pravachol) 80 mg PO DAILY [facility] Last Admin: 04/09/18 08:42 Dose: 80 mg Senna/Docusate Sodium (Susana-Colace) 1 tab PO BID [facility] Last Admin: 04/09/18 08:41 Dose: 1 tab Sennosides (Senokot) 17.2 mg PO Q12H PRN PRN Reason: Moderate Constipation Sodium Chloride (Ns Flush) 2 ml IV.FLUSH BID [facility] Last Admin: 04/09/18 08:42 Dose: 2 ml Sodium Chloride (Ns Flush) 2 ml IV.FLUSH PRN PRN PRN Reason: FLUSH AFTER USING IV ACCESS Allergies Allergy/AdvReac Type Severity Reaction Status Date / Time Sulfa (Sulfonamide Allergy Severe Hives Verified 04/07/18 13:28 Antibiotics) Home Medications Medication Instructions Recorded Confirmed Type dorzolamide 1 drp OPHTHALMIC (EYE) TID 04/07/18 04/07/18 History gabapentin [Neurontin] 300 mg PO HS 04/07/18 04/07/18 History levothyroxine 125 mcg PO DAILY 04/07/18 04/07/18 History lisinopril 5 mg PO DAILY 04/07/18 04/07/18 History kazrrsjv-[id number]-QY-calcium-mins 1 tab PO DAILY 04/07/18 04/07/18 History [Thera M Plus (ferrous fumarat)] pantoprazole [Protonix] 40 mg PO DAILY 04/07/18 04/07/18 History pravastatin 80 mg PO DAILY 04/07/18 04/07/18 History quetiapine [Seroquel] 25 mg PO BID 04/07/18 04/07/18 History ranitidine HCl [Zantac] 150 mg PO DAILY 04/07/18 04/07/18 History Physical Exam Vital signs: Vital Signs 04/08/18 16:00 04/08/18 20:00 04/09/18 00:00 Temperature 97.8 F 97.8 F 97.8 F Pulse Rate 86 77 81 Respiratory Rate 20 20 20 Blood Pressure 154/70 H 159/76 H 154/75 H Pulse Oximetry 90 L 92 L 93 L 04/09/18 04:00 04/09/18 08:00 04/09/18 12:00 Temperature 98.2 F 97.6 F 97.9 F Pulse Rate 75 81 82 Respiratory Rate 18 18 16 Blood Pressure 167/79 H 156/69 H 124/72 Pulse Oximetry 94 L 92 L 91 L 04/09/18 12:45 Temperature Pulse Rate 79 Respiratory Rate 18 Blood Pressure Pulse Oximetry Intake & Output 04/08/18 04/09/18 04/09/18 18:59 06:59 18:59 Intake Total 1460 / 1460 1100 / 1100 100 / 100 Output Total 800 / 800 350 / 350 Balance 660 / 660 750 / 750 100 / 100 Weight 88.6 kg Intake: IV 1100 / 1100 1100 / 1100 100 / 100 LR 1000 mL Inj 1,000 ML @ 100 1000 / 1000 1000 / 1000 mls/hr IV.CONT .Q10H [facility] Rx#: [id number] Maxipime Inj 2,000 MG In NS Inj 100 / 100 100 / 100 100 / 100 100 ML @ 200 mls/hr IV.SIG Q12H [facility] Rx#:[id number] Oral 360 / 360 Output: Urine 800 / 800 350 / 350 Other: Date of Last Bowel Movement 04/08/18 - Urinary Catheter Management Straight Cath placed during this visit: yes, but has since been removed by the nurse Reason for continuing: Decision to DC catheter Insertion date: 04/07/18 Insertion time: 13: Removal date: 04/07/18 Removal time: 13: Results 04/09/18 05:50 04/09/18 05:50 CBC 04/07/18 04/08/18 04/09/18 Range/Units 16:00 04:04 05:50 WBC 8.5 5.8 5.7 (4.0-11.0) th/mm3 RBC 2.36 L 2.23 L 2.38 L (4.50-5.90) mil/mm3 Hgb 8.2 L 7.7 L 8.6 L (13.0-17.0) gm/dL Hct 24.1 L 22.4 L 24.0 L (39.0-51.0) % Plt Count 274 285 278 (150-450) th/mm3 Neut # (Auto) 7.1 4.3 (1.8-7.7) th/mm3 Lymph # (Auto) 0.8 L 1.0 (1.0-4.8) th/mm3 [place] # (Auto) 0.5 0.4 (0.0-0.9) th/mm3 Eos # (Auto) 0.0 0.1 (0.0-0.4) th/mm3 Baso # (Auto) 0.0 0.0 (0.0-0.2) th/mm3 Comprehensive Metabolic Panel 04/08/18 04/09/18 Range/Units 04:04 05:50 Sodium 143 139 (136-145) meq/L Potassium 3.8 3.6 (3.5-5.1) meq/L Chloride 108 H 105 (98-107) meq/L Carbon Dioxide 25.3 24.6 (21.0-32.0) meq/L BUN 17 12 (7-18) mg/dL Creatinine 1.43 H 1.25 (0.60-1.30) mg/dL Calcium 8.1 L D 8.8 (8.5-10.1) mg/dL Intake and Output 04/08/18 04/09/18 04/09/18 22:59 06:59 14:59 Intake Total 360 / 360 1100 / 1100 100 / 100 Output Total 800 / 800 350 / 350 Balance -440 / -440 750 / 750 100 / 100 Intake: IV 1100 / 1100 100 / 100 LR 1000 mL Inj 1,000 ML @ 100 1000 / 1000 mls/hr IV.CONT .Q10H [facility] Rx#: [id number] Maxipime Inj 2,000 MG In NS Inj 100 / 100 100 / 100 100 ML @ 200 mls/hr IV.SIG Q12H [facility] Rx#:[id number] Oral 360 / 360 Output: Urine 800 / 800 350 / 350 Other: Date of Last Bowel Movement 04/08/18 Weight 88.6 kg - Imaging and Cardiology Imaging: Impressions Head MRI 04/07/18 00:00 CONCLUSION: 1. No acute intracranial abnormality demonstrated. 2. Chronic white matter changes. 3. Chronic appearing left maxillary sinus disease. Assessment and Plan - Assessment (1) CAD (coronary artery disease) Code(s): I25.10 - Atherosclerotic heart disease of [place] coronary artery without angina pectoris Status: Acute (2) Syncope Code(s): R55 - Syncope and collapse Status: Acute (3) Anemia Code(s): D64.9 - Anemia, unspecified Status: Acute (4) Pneumonia Code(s): J18.9 - Pneumonia, unspecified organism Status: Acute (5) Dehydration Code(s): E86.0 - Dehydration Status: Acute (6) Lactic acidosis Code(s): E87.2 - Acidosis Status: Acute - Plan 1.) Syncope = f/u echo and carotid us, no further reported events 2.) CAD - assymptomatic, continue pravachol, ac held due to unstable hgb and severe anemia (4) Pneumonia Qualifiers: Pneumonia type: due to unspecified organism Laterality: bilateral Lung location: lower lobe of lung Qualified Code(s): J18.1 - Lobar pneumonia, unspecified organism
--- NOTE | 2018-04-09 15:29 | ECHRPT ---
Indication: syncope CONCLUSIONS Wall thickness is normal. The left ventricular systolic function is low normal with an estimated ejection fraction in the rang e of 50- 55%. Severe thickening of the aortic valve leaflets. BP: / HR: Rhythm: MEASUREMENTS (Male / Female) Normal Values Technical Quality:Technically difficult study 2D ECHO LVOT Diameter 2.4 cm Aortic Root Diameter 3.3 cm LV Ejection Fraction MOD 4C 66.3 % LV Ejection Fraction 4C AL 65.4 % M-MODE LV Diastolic Diameter MM 6.9 cm 4.2 - 5.9 / 3.9 - 5.3 cm IVS Diastolic Thickness MM 2.0 cm 0.6 - 1.0 / 0.6 - 0.9 cm DOPPLER AV Peak Velocity 210.0 cm/s AV Peak Gradient 17.6 mmHg AV Mean Gradient 8.5 mmHg AV Velocity Time Integral 35.5 cm AI Peak Velocity 205.0 cm/s AI Peak Gradient 16.8 mmHg AI Pressure Half Time 1313.0 ms LVOT Peak Velocity 105.0 cm/s LVOT Peak Gradient 4.4 mmHg LVOT Velocity Time Integral 18.5 cm AV Area Cont Eq vti 2.4 cm AV Area Cont Eq pk 2.3 cm Mitral E Point Velocity 54.0 cm/s Mitral A Point Velocity 69.6 cm/s Mitral E to A Ratio 0.8 TR Peak Velocity 208.0 cm/s TR Peak Gradient 17.3 mmHg Right Atrial Pressure 10.0 mmHg Pulmonary Artery Systolic Pressu 27.3 mmHg Right Ventricular Systolic Press 27.3 mmHg PV Peak Velocity 50.2 cm/s PV Peak Gradient 1.0 mmHg FINDINGS LEFT VENTRICLE Wall thickness is normal. The left ventricular systolic function is low normal with an estimated ejection fraction in the rang e of 50- 55%. AORTIC VALVE Severe thickening of the aortic valve leaflets. Rajinder Ochoa MD, FACC, FSCAI (Electronically Signed) Final Date:09 April 2018 15:28
[2018-04-09] MEDS ORDERED: Gabapentin 100 MG Capsule PO SCH (21:00)
[2018-04-10] MEDS: Benzonatate 100 MG Capsule PO PRN (04:55)
[2018-04-10] MEDS: Heparin - SQ 10,000 UNITS/ML Vial SQ SCH (05:00)
[2018-04-10] MEDS: Levothyroxine 125 MCG Tablet PO SCH (05:01)
[2018-04-10] MEDS: Multivitamin/Minerals Therapeutic Tablet PO SCH (09:18)
[2018-04-10] MEDS: Famotidine 20 MG Tablet PO SCH (09:18)
[2018-04-10] MEDS: Senna/Docusate Sodium 8.6/50 MG Tablet PO SCH (09:19)
[2018-04-10] MEDS: amLODIPine 5 MG Tablet PO SCH (09:19)
--- NOTE | 2018-04-10 09:33 | P.PNIM ---
Subjective Interval history: Follow-up pneumonia, syncope, hypertension with recent hypotension. Patient laying in bed stated ready to go home and [place]. Patient denies any fever chills however still complaining of coughing, with no sputum. However stated feeling better. Patient denies any headache or dizziness, denies any fever or chills, denies any abdominal pain, chest pain, or shortness of breath, denies any nausea or vomiting. Physical Exam Vital signs: Vital Signs 04/09/18 12:00 04/09/18 12:45 04/09/18 16:00 Temperature 97.9 F Pulse Rate 82 79 80 Respiratory Rate 16 18 Blood Pressure 124/72 Pulse Oximetry 91 L 04/09/18 16:01 04/09/18 16:18 04/09/18 19:10 Temperature 97.8 F Pulse Rate 93 H 101 H 101 H Respiratory Rate 18 19 18 Blood Pressure 110/67 Pulse Oximetry 89 L 93 L 04/09/18 20:00 04/09/18 23:00 04/09/18 23:42 Temperature 97 F L 97.8 F Pulse Rate 106 H 79 101 H Respiratory Rate 18 21 18 Blood Pressure 125/64 131/66 Pulse Oximetry 94 L 96 94 L 04/10/18 00:00 04/10/18 04:00 04/10/18 04:03 Temperature 97.4 F L Pulse Rate 80 78 87 Respiratory Rate 16 25 H Blood Pressure 138/70 Pulse Oximetry 94 L 97 04/10/18 08:00 04/10/18 08:35 Temperature 97.7 F Pulse Rate 78 68 Respiratory Rate 16 16 Blood Pressure 160/85 H Pulse Oximetry 97 Intake & Output 04/09/18 04/10/18 04/10/18 18:59 06:59 18:59 Intake Total 100 / 100 300 / 300 Output Total 600 / 600 Balance 100 / 100 -300 / -300 Weight 85.9 kg Intake: IV 100 / 100 100 / 100 Maxipime Inj 2,000 MG In NS Inj 100 / 100 100 / 100 100 ML @ 200 mls/hr IV.SIG Q12H [facility] Rx#:[id number] Oral 200 / 200 Output: Urine 600 / 600 Other: Date of Last Bowel Movement 04/08/18 04/08/18 # Bowel Movements 0 Narrative: GENERAL: Elderly male, in no acute distress SKIN: Warm and dry. Left great toe blister with Band-Aid, left great toe fungal rash on nails HEAD: Atraumatic. Normocephalic. EYES: Pupils equal and round. No scleral icterus. No injection or drainage. Legally blind ENT: No nasal bleeding or discharge. Mucous membranes pink and moist. NECK: Trachea midline. No JVD. CARDIOVASCULAR: Regular rate and rhythm. No edema RESPIRATORY: No accessory muscle use. Slight rhonchi on the bases. Breath sounds equal bilaterally. Positive for cough, no sputum GASTROINTESTINAL: Abdomen soft, non-tender, nondistended. Hepatic and splenic margins not palpable. MUSCULOSKELETAL: Extremities without clubbing, cyanosis, or edema. No obvious deformities. NEUROLOGICAL: Awake and alert. No obvious cranial nerve deficits. Motor grossly within normal limits. Generalized weakness, moving all 4 extremities. Normal speech. PSYCHIATRIC: Appropriate mood and affect; insight and judgment normal. - Urinary Catheter Management Straight Cath placed during this visit: yes, but has since been removed by the nurse Reason for continuing: Decision to DC catheter Insertion date: 04/07/18 Insertion time: : Removal date: 04/07/18 Removal time: : Results - Labs CBC & Chem 7: 04/09/18 05:50 04/09/18 05:50 Assessment and Plan - Assessment (1) Anemia Code(s): D64.9 - Anemia, unspecified Status: Acute (2) CAD (coronary artery disease) Code(s): I25.10 - Atherosclerotic heart disease of [place] coronary artery without angina pectoris Status: Acute (3) Pneumonia Code(s): J18.9 - Pneumonia, unspecified organism Status: Acute (4) Syncope Code(s): R55 - Syncope and collapse Status: Acute - Plan Patient is an 82-year-old male brought in by EMS from an assisted living facility after reported episode of syncope. The patient has a history significant for AAA, [employer]IST demyelination with associated gait disorder, coronary artery disease, macular degeneration, hypertension, and hypothyroidism. The patient was found to have pneumonia. He has been having symptoms for at least a week. Pneumonia: - continue cefepime and azithromycin, Plan to change to levaquin PO after todays IV dose - Breathing treatments schedule and prn - Incentive spirometry - Legionella: presumptive negative - Strep pneumo urinary antigen: Presumptive negative - add Tessalon pearls -Give Solu-Medrol IV now, plan to discharge with Medrol Dosepak. Syncope: -Could be secondary to pneumonia as above however cannot rule out an arrhythmia or seizure activity. Patient was admitted here for a syncopal episode about 4 months ago. - A Holter monitor at the time did show some first-degree AV block and 6 episode of 2-second pauses. - Consult cardiology for assistance - continuous telemetry monitoring - MRI : No intracranial abnormality, - EEG: mild encephalopathy -Carotid ultrasound in December 06 showed mild plaque with no stenosis -2D Echo: LVEF 50-55%, severe thickening of aortic valve leaflets -orthostatics negative Hypertension/CAD/HLD - Blood pressure elevated, was borderline low on admission -d/c lisinopril due to LOPEZ, start on Norvasc -continue IV fluid -continue Pravastatin - Continue to monitor LOPEZ: Likely secondary to dehydration. - Continue IV fluid -avoid nephrotoxins -monitor BMP Hx of hypothyroidism, hyperlipidemia, and peripheral neuropathy -stable, TSH 0.450 -continue home medications Right Buttock hematoma Unknown if patient fall or any trauma -monitor Generalized weakness PT/OT rehab per protocol GI prophylaxis: Stool softener PRN constipation. DVT PPx: Heparin Code Status: Full code Discussed Condition With: Patient, and nurse Dr. Bonilla Discharge Planning: May be able to discharge in 1 day if cleared with cardiology and if 2D Echo unremarkable (3) Pneumonia Qualifiers: Pneumonia type: due to unspecified organism Laterality: bilateral Lung location: lower lobe of lung Qualified Code(s): J18.1 - Lobar pneumonia, unspecified organism
[2018-04-10] MEDS: Dorzolamide 2% Opth Drops 10 ML Bottle EACH EYE SCH ×2 (10:16→13:50)
[2018-04-10] MEDS: Sodium Chloride 0.9% 2 ML Flush BID IV.FLUSH SCH (10:16)
[2018-04-10] MEDS: MethylPREDNISolone Sod Succinate Inj 40 MG/ML Vial IV.PUSH SCH ×2 (10:17→16:14)
[2018-04-10] MEDS: Azithromycin 250 MG Tablet PO SCH (13:50)
[2018-04-10 13:54] VITALS: BP 144/67; TEMP 97.5; O2SAT 98
[2018-04-10] MEDS ORDERED: Potassium Chloride 10 MEQ ER Capsule PO SCH (14:00)
[2018-04-10] MEDS ORDERED: Furosemide 20 MG Tablet PO SCH (14:00)
--- NOTE | 2018-04-10 15:06 | P.DS ---
Date of admission: 04/07/18 15:33 Primary care physician: UNKNOWN Attending physician on discharge: Jesse Bonilla Anticipated date of discharge: 04/10/18 Brief History from admission: 82-year-old male brought in by EMS from an assisted living facility after reported episode of syncope. 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 The patient is a poor historian, but he was able to tell me he was brought to the hospital because he passed out. He denies any lightheadedness, chest pain, or shortness of breath prior to the event. He does not remember anything else. His blood pressure was reportedly borderline. On my evaluation today. He is blood pressure is 90 over 50s. He has been coughing and chest congestion for the past 3-4 weeks. He denies any fevers or chills. Imaging in the emergency room consistent with pneumonia. Patient is currently lying in bed. He denies shortness of breath. Patient update on day of discharge: Patient seen and examined awake alert and oriented denies any pain or shortness of breath patient stated feeling better and ready to go home to [facility]. Patient still complained of cough but denies any sputum. Patient denies any headache or dizziness, denies any chest pain or shortness of breath, denies any abdominal pain nausea or vomiting. Patient denies any fever or chills. Discussed patient's status with Dr. Ochoa the forest supervisor, patient cleared with forest supervisor to go home to [facility]. DS: Diagnosis - Discharge Diagnosis (1) Anemia Status: Acute (2) CAD (coronary artery disease) Status: Acute (3) Pneumonia Status: Acute (4) Syncope Status: Acute DS: Medications - Discharge Medications Prescriptions: amlodipine [Norvasc] 5 mg PO BID 30 Days #60 tab azithromycin 500 mg PO Q24H 5 Days #5 tab furosemide 20 mg PO DAILY 3 Days #3 tab potassium chloride 10 meq PO DAILY 3 Days #3 cap DS: Summary Hospital Course: Patient is an 82-year-old male brought in by EMS from an assisted living facility after reported episode of syncope. 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 The patient was found to have pneumonia. He has been having symptoms for at least a week. - Time Spent with Patient Total time spent providing and/or coordinating discharge services: Greater than 30 minutes - Quality: VTE Deep Vein Thrombosis/Pulmonary Embolism Present on Admission: No Exam Vital signs: Vital Signs 04/09/18 16:00 04/09/18 16:01 04/09/18 16:18 Temperature 97.8 F Pulse Rate 80 93 H 101 H Respiratory Rate 18 19 Blood Pressure 110/67 Pulse Oximetry 89 L 04/09/18 19:10 04/09/18 20:00 04/09/18 23:00 Temperature 97 F L Pulse Rate 101 H 106 H 79 Respiratory Rate 18 18 21 Blood Pressure 125/64 Pulse Oximetry 93 L 94 L 96 04/09/18 23:42 04/10/18 00:00 04/10/18 04:00 Temperature 97.8 F 97.4 F L Pulse Rate 101 H 80 78 Respiratory Rate 18 16 Blood Pressure 131/66 138/70 Pulse Oximetry 94 L 94 L 04/10/18 04:03 04/10/18 08:00 04/10/18 08:35 Temperature 97.7 F Pulse Rate 87 78 68 Respiratory Rate 25 H 16 16 Blood Pressure 160/85 H Pulse Oximetry 97 97 04/10/18 11:52 Temperature 97.8 F Pulse Rate 84 Respiratory Rate 17 Blood Pressure 155/71 H Pulse Oximetry 94 L Intake & Output 04/09/18 04/10/18 04/10/18 18:59 06:59 18:59 Intake Total 100 / 100 300 / 300 100 / 100 Output Total 600 / 600 Balance 100 / 100 -300 / -300 100 / 100 Weight 85.9 kg Intake: IV 100 / 100 100 / 100 100 / 100 Maxipime Inj 2,000 MG In NS Inj 100 / 100 100 / 100 100 / 100 100 ML @ 200 mls/hr IV.SIG Q12H [facility] Rx#:[id number] Oral 200 / 200 Output: Urine 600 / 600 Other: Date of Last Bowel Movement 04/08/18 04/08/18 # Bowel Movements 0 Narrative: GENERAL: Elderly male, in no acute distress SKIN: Warm and dry. Left great toe blister with Band-Aid, left great toe fungal rash on nails HEAD: Atraumatic. Normocephalic. EYES: Pupils equal and round. No scleral icterus. No injection or drainage. Legally blind ENT: No nasal bleeding or discharge. Mucous membranes pink and moist. NECK: Trachea midline. No JVD. CARDIOVASCULAR: Regular rate and rhythm. No edema RESPIRATORY: No accessory muscle use. Slight rhonchi on the bases. Breath sounds equal bilaterally. Positive for cough, no sputum GASTROINTESTINAL: Abdomen soft, non-tender, nondistended. Hepatic and splenic margins not palpable. MUSCULOSKELETAL: Extremities without clubbing, cyanosis, or edema. No obvious deformities. NEUROLOGICAL: Awake and alert. No obvious cranial nerve deficits. Motor grossly within normal limits. Generalized weakness, moving all 4 extremities. Normal speech. PSYCHIATRIC: Appropriate mood and affect; insight and judgment normal. Results Procedures completed during hospitalization: none - Impressions ITS Impressions Head MRI 04/07/18 00:00 CONCLUSION: 1. No acute intracranial abnormality demonstrated. 2. Chronic white matter changes. 3. Chronic appearing left maxillary sinus disease. Chest X-Ray 04/07/18 11:57 CONCLUSION: 1. Bibasilar patchiness consistent with atelectasis and/or infiltrates. 2. Cardiomegaly. Head CT 04/07/18 11:57 CONCLUSION: 1. Mild cerebral atrophy. 2. Stable periventricular and subcortical white matter small vessel ischemic changes bilaterally. 3. Scattered old lacunar infarcts within the bilateral basal ganglia. 4. No acute infarct, acute hemorrhage, midline shift or extra-axial fluid collections. . Abdomen/Pelvis CT 04/07/18 13:53 CONCLUSION: 1. Bibasilar patchiness consistent with atelectasis and/or pneumonia. 2. Soft tissue density within the right buttock inferior to the right ischium measuring 6.4 cmconsistent with possible hematoma. Clinical correlation is recommended. 3. Uncomplicated colonic diverticulosis. 4. Stable bilateral adrenal nodules consistent with probable adenomas. 5. Infrarenal abdominal aortic aneurysm measuring 3.5 x 3.6 cm. 6. Enlarged prostate. 7. Degenerative changes and scoliosis of the thoracolumbar spine. 8. Bilateral renal cysts. Discharge Plan - Discharge Disposition Patient Disposition: Discharge to SNF - Discharge Condition Condition: Stable - Discharge Order Discharge Orders: Discharge Order (Routine); Ordered 04/10/18 Ordered By: Lin Montes - Discharge Details Anticipated Discharge Date: 04/07/18 - Physicians Team Primary Care Provider: UNKNOWN, Attending Provider: Jesse Bonilla Other Providers: Rajinder Ochoa MD ; Dennise Baxter,Jammie
[2018-04-10 15:24] VITALS: RESP 22
--- NOTE | 2018-04-10 18:08 | P.PNCA ---
Subjective Interval history: alert in nad, wants to go back to [facility] Medications and Allergies Active Medications: Active Medications Al Hydroxide/Mg Hydroxide (Milk Of Magnesia Liq) 30 ml PO Q12H PRN PRN Reason: Mild Constipation Albuterol (Duoneb Neb (Bijal)) 1 ampul NEB Q4HR NEB [facility] Last Admin: 04/10/18 15:21 Dose: 1 ampul Amlodipine Besylate (Norvasc) 5 mg PO BID BIJAL Azithromycin (Zithromax) 500 mg PO Q24H [facility] Last Admin: 04/10/18 13:50 Dose: 500 mg Benzocaine/Menthol (Cepacol Max Strength) 1 lozenge BUCCAL Q2H PRN PRN Reason: cough/itchy throat Benzonatate (Tessalon Perles) 200 mg PO Q8H PRN PRN Reason: COUGH Last Admin: 04/10/18 04:55 Dose: 200 mg Bisacodyl (Dulcolax Supp) 10 mg RECTAL DAILY PRN PRN Reason: SEVERE CONSITIPATION Clonidine HCl (Catapres) 0.1 mg PO Q6H PRN PRN Reason: SBP>160, DBP>90 Dorzolamide HCl (Trusopt 2% Opth Drops) 1 drop EACH EYE TID [facility] Last Admin: 04/10/18 13:50 Dose: 1 drop Famotidine (Pepcid) 10 mg PO BID [facility] Last Admin: 04/10/18 09:18 Dose: 10 mg Furosemide (Lasix) 20 mg PO DAILY [facility] Stop: 04/13/18 14:00 Last Admin: 04/10/18 16:14 Dose: 20 mg Gabapentin (Neurontin) 100 mg PO HS [facility] Last Admin: 04/09/18 20:30 Dose: 100 mg Guaifenesin (Robitussin Liq) 200 mg PO Q4H PRN PRN Reason: COUGH Last Admin: 04/10/18 09:18 Dose: 200 mg Heparin Sodium (Porcine) (Heparin Inj) 5,000 units SQ Q12H [facility] Last Admin: 04/10/18 05:00 Dose: 5,000 units Cefepime HCl 2,000 mg/ Sodium (Chloride) 100 mls @ 200 mls/hr IV.SIG Q12H [facility] Last Infusion: 04/10/18 10:22 Dose: Infused Lactulose (Lactulose Liq) 30 ml PO DAILY PRN PRN Reason: SEVERE CONSITIPATION Levothyroxine Sodium (Synthroid) 125 mcg PO DAILY@0600 [facility] Last Admin: 04/10/18 05:01 Dose: 125 mcg Methylprednisolone (Medrol) 4 mg PO DAILY [facility] Methylprednisolone Sodium Succinate (Solumedrol Inj) 40 mg IV.PUSH Q6H [facility] Last Admin: 04/10/18 16:14 Dose: 40 mg Miscellaneous (Pill Splitter) 1 each OTHER UNSCH PRN PRN Reason: PILL SPLITTER Multivitamins/Minerals (Theragran-M) 1 tab PO DAILY [facility] Last Admin: 04/10/18 09:18 Dose: 1 tab Pantoprazole Sodium (Protonix) 40 mg PO DAILY [facility] Last Admin: 04/10/18 09:19 Dose: 40 mg Potassium Chloride (Kcl) 10 meq PO DAILY [facility] Stop: 04/13/18 14:00 Last Admin: 04/10/18 16:14 Dose: 10 meq Pravastatin Sodium (Pravachol) 80 mg PO DAILY [facility] Last Admin: 04/10/18 09:20 Dose: 80 mg Senna/Docusate Sodium (Susana-Colace) 1 tab PO BID [facility] Last Admin: 04/10/18 09:19 Dose: 1 tab Sennosides (Senokot) 17.2 mg PO Q12H PRN PRN Reason: Moderate Constipation Sodium Chloride (Ns Flush) 2 ml IV.FLUSH BID [facility] Last Admin: 04/10/18 10:16 Dose: 2 ml Sodium Chloride (Ns Flush) 2 ml IV.FLUSH PRN PRN PRN Reason: FLUSH AFTER USING IV ACCESS Allergies Allergy/AdvReac Type Severity Reaction Status Date / Time Sulfa (Sulfonamide Allergy Severe Hives Verified 04/07/18 13:28 Antibiotics) Home Medications Medication Instructions Recorded Confirmed Type dorzolamide 1 drp OPHTHALMIC (EYE) TID 04/07/18 04/07/18 History gabapentin [Neurontin] 300 mg PO HS 04/07/18 04/07/18 History levothyroxine 125 mcg PO DAILY 04/07/18 04/07/18 History lisinopril 5 mg PO DAILY 04/07/18 04/07/18 History [id number]-calcium-mins 1 tab PO DAILY 04/07/18 04/07/18 History [Thera M Plus (ferrous fumarat)] pantoprazole [Protonix] 40 mg PO DAILY 04/07/18 04/07/18 History pravastatin 80 mg PO DAILY 04/07/18 04/07/18 History quetiapine [Seroquel] 25 mg PO BID 04/07/18 04/07/18 History ranitidine HCl [Zantac] 150 mg PO DAILY 04/07/18 04/07/18 History Physical Exam Vital signs: Vital Signs 04/09/18 19:10 04/09/18 20:00 04/09/18 23:00 Temperature 97 F L Pulse Rate 101 H 106 H 79 Respiratory Rate 18 18 21 Blood Pressure 125/64 Pulse Oximetry 93 L 94 L 96 04/09/18 23:42 04/10/18 00:00 04/10/18 04:00 Temperature 97.8 F 97.4 F L Pulse Rate 101 H 80 78 Respiratory Rate 18 16 Blood Pressure 131/66 138/70 Pulse Oximetry 94 L 94 L 04/10/18 04:03 04/10/18 08:00 04/10/18 08:35 Temperature 97.7 F Pulse Rate 87 78 68 Respiratory Rate 25 H 16 16 Blood Pressure 160/85 H Pulse Oximetry 97 97 04/10/18 11:52 04/10/18 12:00 04/10/18 15:23 Temperature 97.8 F 97.5 F L Pulse Rate 84 89 89 Respiratory Rate 17 23 22 Blood Pressure 155/71 H 144/67 H Pulse Oximetry 94 L 98 04/10/18 15:24 Temperature Pulse Rate Respiratory Rate Blood Pressure Pulse Oximetry 98 Intake & Output 04/09/18 04/10/18 04/10/18 18:59 06:59 18:59 Intake Total 100 / 100 300 / 300 100 / 100 Output Total 600 / 600 Balance 100 / 100 -300 / -300 100 / 100 Weight 85.9 kg Intake: IV 100 / 100 100 / 100 100 / 100 Maxipime Inj 2,000 MG In NS Inj 100 / 100 100 / 100 100 / 100 100 ML @ 200 mls/hr IV.SIG Q12H [facility] Rx#:[id number] Oral 200 / 200 Output: Urine 600 / 600 Other: Date of Last Bowel Movement 04/08/18 04/08/18 # Bowel Movements 0 - Urinary Catheter Management Straight Cath placed during this visit: yes, but has since been removed by the nurse Reason for continuing: Decision to DC catheter Insertion date: 04/07/18 Insertion time: : Removal date: 04/07/18 Removal time: : Results 04/09/18 05:50 04/09/18 05:50 CBC 04/09/18 Range/Units 05:50 WBC 5.7 (4.0-11.0) th/mm3 RBC 2.38 L (4.50-5.90) mil/mm3 Hgb 8.6 L (13.0-17.0) gm/dL Hct 24.0 L (39.0-51.0) % Plt Count 278 (150-450) th/mm3 Comprehensive Metabolic Panel 04/09/18 Range/Units 05:50 Sodium 139 (136-145) meq/L Potassium 3.6 (3.5-5.1) meq/L Chloride 105 (98-107) meq/L Carbon Dioxide 24.6 (21.0-32.0) meq/L BUN 12 (7-18) mg/dL Creatinine 1.25 (0.60-1.30) mg/dL Calcium 8.8 (8.5-10.1) mg/dL Intake and Output 04/10/18 04/10/18 04/10/18 06:59 14:59 22:59 Intake Total 200 / 200 100 / 100 Output Total 600 / 600 Balance -400 / -400 100 / 100 Intake: IV 100 / 100 Maxipime Inj 2,000 MG In NS Inj 100 / 100 100 ML @ 200 mls/hr IV.SIG Q12H [facility] Rx#:[id number] Oral 200 / 200 Output: Urine 600 / 600 Other: # Bowel Movements 0 Weight 85.9 kg Assessment and Plan - Assessment (1) CAD (coronary artery disease) Code(s): I25.10 - Atherosclerotic heart disease of [place] coronary artery without angina pectoris Status: Acute (2) Syncope Code(s): R55 - Syncope and collapse Status: Acute (3) Anemia Code(s): D64.9 - Anemia, unspecified Status: Acute (4) Pneumonia Code(s): J18.9 - Pneumonia, unspecified organism Status: Acute (5) Dehydration Code(s): E86.0 - Dehydration Status: Acute (6) Lactic acidosis Code(s): E87.2 - Acidosis Status: Acute - Plan 1.) Syncope = echo unremarkable for cause of syncope and carotid us performed previously this year without evidence for etiology of syncope , no further reported events 2.) CAD - assymptomatic, continue pravachol, ac held due to unstable hgb and severe anemia (4) Pneumonia Qualifiers: Pneumonia type: due to unspecified organism Laterality: bilateral Lung location: lower lobe of lung Qualified Code(s): J18.1 - Lobar pneumonia, unspecified organism
[2018-04-10 20:41] VITALS: PULSE 100
[2018-04-10] MEDS ORDERED: amLODIPine 5 MG Tablet PO SCH (21:00)
== END 2018-04-10 16:34 ==
LOC: NEPC 11:39 → NEDA 15:33 → N04 18:06
PROVIDERS: ADMIT Internal Medicine; ATTEND Internal Medicine